=== PATIENT | female | born 1940 | race Caucasian/White ===

== ENCOUNTER 2017-10-21 12:57 | Inpatient (IN) | payer MEDICARE, SELFPAY | END 2017-10-27 11:05 | disposition home or self-care (01) | DRG 981 | PROVIDERS: Admitting Provider Internal Medicine Adolescent Medicine; Emergency Provider Emergency Medicine; Family Provider Family Medicine; Visit Provider Family Medicine | DX: J96.01 Acute respiratory failure with hypoxia (principal); K31.811 Angiodysplasia of stomach and duodenum with bleeding; N18.4 Chronic kidney disease, stage 4 (severe); N17.9 Acute kidney failure, unspecified; E11.22 Type 2 diabetes mellitus with diabetic chronic kidney disease; E11.65 Type 2 diabetes mellitus with hyperglycemia; I13.0 Hypertensive heart and chronic kidney disease with heart failure and stage 1 through stage 4 chronic kidney disease, or unspecified chronic kidney disease; J44.1 Chronic obstructive pulmonary disease with (acute) exacerbation; J44.0 Chronic obstructive pulmonary disease with (acute) lower respiratory infection; I50.9 Heart failure, unspecified; I35.0 Nonrheumatic aortic (valve) stenosis; Z95.828 Presence of other vascular implants and grafts; Z95.5 Presence of coronary angioplasty implant and graft; Z79.4 Long term (current) use of insulin; J20.9 Acute bronchitis, unspecified | CPT/HCPCS: 43257; 43239; 43255; 36415; 36430; 70450; 71010; 80048; 80053; 80185; 81001; 82150; 82272; 82550; 82553; 82668; 82803; 82947; 82962; 83605; 83690; 83880; 84484; 85014; 85018; 85025; 85044; 86850; 86900; 86901; 86920; 86922; 87040; 87070; 87077; 87086; 87186; 87205; 88305; 93005; 93306; 94640; 94660; 94760; 96374; 96375; 97162; 97165; 99285; C2618; G0328; J2310; P9016 ==

== ENCOUNTER 2017-12-04 06:24 | Day surgery (SDC) | payer MEDICARE, MEDICAID, SELFPAY ==
[2017-12-01 10:20] VITALS: BMI 26.2
[2017-12-04] VITALS (8 sets, daily range): BP systolic 117–138; BP diastolic 44–76; PULSE 72–78; RESP 18; TEMP 36.7; O2SAT 92–98
--- NOTE | 2017-12-04 07:10 | HMH.ANESCL ---
[facility] Anesthesia Checklist - Patient Identification Patient Identification: Arm Band, Verbal (Name & ) - Structural Data Admitted From: Home Planned Operative Procedure/s: colonoscopy Consent for Planned Operative Procedure(s) Verified: Yes Verified Documents: Surgical Consent - NPO Status Verified Time NPO: 00:00 - Chart Verification Results Verified: CBC, BMP - Additional verifications Patient : No Anesthesia Reactions: No Hx Blood Transfusions: No Blood Transfusion Reaction: No Cephalosporin Allergy: No Previous Colonoscopy: No - Cardiovascular Assessment Heart Sounds: S1 & S2 Pulse Strength: Strong Pulse Rhythm: Regular Peripheral Edema: No - Airway Assessment C-Spine Mobility Assessed: Yes TMJ Mobility Assessed: Yes Dentition: Edentulous - Neurological Assessment Level of Consciousness: Awake, Alert, Appropriate Hx Seizures: Yes Numbness or tingling in extremities: No - Anesthesia Plan Anesthesia Risk discussed: Yes Anesthesia Plan: Verified ASA Class: III Anesthesia Type: MAC [facility] Anesthesia HX I have reviewed the patient's past medical history: Yes Medical History: Reports:: Atherosclerotic Heart Disease, Carotid Stenosis, Chronic Obstructive Pulmonary Disease (COPD), Coronary Artery Disease, Diabetes Mellitus Type 1, Gastroesophageal Reflux Disease(GERD), Hypertension, Lung Disease (COPD, O2 AT5 HOME HAS NOT USED IN WEEKS), Peripheral Vascular Disease, Renal Insufficiency Denies:: Diabetes Mellitus Type 2, Internal Pacemaker, Seizures Other Surgeries: Yes: Colonoscopy, Hysterectomy-Partial. No: Pacemaker Amputation: No Fractures: No *Family Hx:: Unable to obtain
--- NOTE | 2017-12-04 07:13 | P.PN_ITS ---
[facility] Anesthesia Checklist - Patient Identification Patient Identification: Arm Band, Verbal (Name & ) - Structural Data Admitted From: Home Planned Operative Procedure/s: colonoscopy Consent for Planned Operative Procedure(s) Verified: Yes Verified Documents: Surgical Consent - NPO Status Verified Time NPO: 00:00 - Chart Verification Results Verified: CBC, BMP - Additional verifications Patient : No Anesthesia Reactions: No Hx Blood Transfusions: No Blood Transfusion Reaction: No Cephalosporin Allergy: No Previous Colonoscopy: No - Cardiovascular Assessment Heart Sounds: S1 & S2 Pulse Strength: Strong Pulse Rhythm: Regular Peripheral Edema: No - Airway Assessment C-Spine Mobility Assessed: Yes TMJ Mobility Assessed: Yes Dentition: Edentulous - Neurological Assessment Level of Consciousness: Awake, Alert, Appropriate Hx Seizures: Yes Numbness or tingling in extremities: No - Anesthesia Plan Anesthesia Risk discussed: Yes Anesthesia Plan: Verified ASA Class: III Anesthesia Type: MAC [facility] Anesthesia HX I have reviewed the patient's past medical history: Yes Medical History: Reports:: Atherosclerotic Heart Disease, Carotid Stenosis, Chronic Obstructive Pulmonary Disease (COPD), Coronary Artery Disease, Diabetes Mellitus Type 1, Gastroesophageal Reflux Disease(GERD), Hypertension, Lung Disease (COPD, O2 AT5 HOME HAS NOT USED IN WEEKS), Peripheral Vascular Disease, Renal Insufficiency Denies:: Diabetes Mellitus Type 2, Internal Pacemaker, Seizures Other Surgeries: Yes: Colonoscopy, Hysterectomy-Partial. No: Pacemaker Amputation: No Fractures: No *Family Hx:: Unable to obtain
[2017-12-04 07:54] LABS: POC Glucose,Bedside 151 mg/dL
[2017-12-04 08:10] LABS: Basophils # 0.2 K/mm3 (0-0.2); Basophils % 1.9 % (0.1-2.0); Eosinophils # 0.7 K/mm3 (0.0-0.4); Hematocrit 37.8 % (37.0-47.0); Hemoglobin 12.1 g/dL (12.2-16.2); Lymphocytes # 1.6 K/mm3 (0.7-4.5); Lymphocytes % 19.2 K/mm3 (10-50); Mean Corpuscular HGB Conc 31.9 g/dL (31.8-35.4); Mean Corpuscular Hemoglobin 30.4 pg (27.0-31.2); Mean Corpuscular Volume 95.1 fl (81-99); Mean Platelet Volume 8.3 fl (7.4-10.4); Monocytes # 0.5 K/mm3 (0.1-1.0); Monocytes % 6.4 % (1.7-9.3); Neutrophils # 5.5 K/mm3 (1.8-7.8); Neutrophils % 64.5 % (37.0-80.0); Platelet Count 289 K/mm3 (142-424); Red Blood Count 3.97 M/mm3 (4.20-5.40); Red Cell Distribution Width 14.9 % (11.5-17.5); White Blood Count 8.5 K/mm3 (4.8-10.8)
[2017-12-04 08:25] LABS: Albumin Level 3.6 gm/dL (3.4-5.0); Anion Gap 15.8 mEq/L (5-15); Blood Urea Nitrogen 34 mg/dL (7-18); Calcium 9.6 mg/dL (8.5-10.1); Carbon Dioxide 28 mmol/L (21.0-32.0); Chloride 109 mmol/L (98-107); Creatinine Clearance Estimated 19 mL/min (0-300); Creatinine,Serum 2.45 mg/dL (0.55-1.02); Estimated Glomerular Filt Rate 19 ml/min (>60); GFR (African American) 23 ML/MIN (>60); Glucose 168 mg/dL (74-106); Phosphorous 4.9 mg/dL (2.4-4.9); Potassium 4.8 mmoL/L (3.5-5.1); Sodium 148 mmol/L (136-145)
--- NOTE | 2017-12-04 08:34 | HMH.PROC ---
[facility] Procedure Note Procedure Note:: Colonoscopy Procedure Report: Colonoscopy with cold snare polypectomy, submucosal injection and snare cautery Endoscopist: Neal Dunham II, MD Referring physician: Austin Zendejas MD Date of Procedure: December 04, 2017 Equipment: Olympus 180 variable stiffness pediatric colonoscope Sedation: MAC sedation Indication: Mrs. Iniguez is a 77-year-old female who is here for follow-up high-risk screening colonoscopy secondary to advanced adenomatous polyp with high-grade dysplasia previously. The patient came in with anemia on October 21, 2017. She did have an EGD with ne on October 26, 2017. Her hemoglobin and hematocrit were 9.6 and 29.7. She does have chronic renal insufficiency. Her EGD showed actively bleeding duodenal angiodysplasia which was cauterized using the APC argon plasma balance wheel arm burnisher. The patient did have a colonoscopy in July 2016 and had a large and more advanced right colon polyp that showed a tubular adenoma with focal high-grade dysplasia (Dr. Ricky Lorenzo M.D.). The patient reports no abdominal pain, change in her bowel habits, rectal bleeding or family history of colon cancer. Procedure: Prior to the procedure, a history and physical exam was performed, and patient's medications and allergies were reviewed. The risks, benefits and alternatives of the sedation and procedure were discussed with the patient. All questions were answered and informed consent was obtained. The patient was brought to the procedure room. Patient identification and proposed procedure were verified by the physician and the nurse. The patient was placed in a left lateral decubitus position and the scope was passed under direct vision. Throughout the procedure, the patient's blood pressure, pulse, and oxygen saturations were monitored continuously. The colonoscopy was accomplished without difficulty. The patient tolerated the procedure well. Findings: On digital rectal examination there was normal rectal tone. There were no external hemorrhoids. The colonoscope was introduced through the anal canal to the rectum and advanced to the cecum. The ileocecal valve and appendiceal orifice were identified. The scope was advanced a short distance into the ileum which appeared grossly normal. The scope was then withdrawn into the colon. There were 2 diminutive ascending polyps and 2 diminutive descending polyps that were removed via cold snare polypectomy and were 4-6 mm in size. There was a larger elongated laterally spreading nongranular 22 mm polyp in the rectosigmoid region. The base of this was injected with Eleview with submucosal injection to lift this polyp up. The polyp was then removed via snare cautery in piecemeal resection. There were scattered diverticuli throughout the descending and sigmoid colon (LEFT colon). The rectum itself was normal. Upon retroflexion within the rectum there were grade 1 internal hemorrhoids. Impression: 1. Laterally spreading nongranular 22 mm rectosigmoid colon polyp-rule out advanced adenoma 2. Diminutive colonic polyps ?4 3. Pandiverticulosis 4. Grade 1 internal hemorrhoids Plan: I will follow-up the polyp histology. If this larger polyp is an advanced adenoma, I would consider repeat surveillance again in 1-2 years based on the pathologic findings.
--- NOTE | 2017-12-04 08:34 | SUR.PREOP ---
1398 pt offered assistance to restroom, denies need at this time
--- NOTE | 2017-12-04 09:19 | P.PCN_ITS ---
[facility] Procedure Note Procedure Note:: Colonoscopy Procedure Report: Colonoscopy with cold snare polypectomy, submucosal injection and snare cautery Endoscopist: Neal Dunham II, MD Referring physician: Austin Zendejas MD Date of Procedure: December 04, 2017 Equipment: Olympus 180 variable stiffness pediatric colonoscope Sedation: MAC sedation Indication: Mrs. Iniguez is a 77-year-old female who is here for follow-up high-risk screening colonoscopy secondary to advanced adenomatous polyp with high-grade dysplasia previously. The patient came in with anemia on October. She did have an EGD with in on October 26, 2017. Her hemoglobin and hematocrit were 9.6 and 29.7. She does have chronic renal insufficiency. Her EGD showed actively bleeding duodenal angiodysplasia which was cauterized using the APC argon plasma supervisor [employer]. The patient did have a colonoscopy in July 2016 and had a large and more advanced right colon polyp that showed a tubular adenoma with focal high-grade dysplasia (Dr. Ricky Lorenzo M.D.). The patient reports no abdominal pain, change in her bowel habits, rectal bleeding or family history of colon cancer. Procedure: Prior to the procedure, a history and physical exam was performed, and patient' s medications and allergies were reviewed. The risks, benefits and alternatives of the sedation and procedure were discussed with the patient. All questions were answered and informed consent was obtained. The patient was brought to the procedure room. Patient identification and proposed procedure were verified by the physician and the nurse. The patient was placed in a left lateral decubitus position and the scope was passed under direct vision. Throughout the procedure, the patient's blood pressure, pulse, and oxygen saturations were monitored continuously. The colonoscopy was accomplished without difficulty. The patient tolerated the procedure well. Findings: On digital rectal examination there was normal rectal tone. There were no external hemorrhoids. The colonoscope was introduced through the anal canal to the rectum and advanced to the cecum. The ileocecal valve and appendiceal orifice were identified. The scope was advanced a short distance into the ileum which appeared grossly normal. The scope was then withdrawn into the colon. There were 2 diminutive ascending polyps and 2 diminutive descending polyps that were removed via cold snare polypectomy and were 4-6 mm in size. There was a larger elongated laterally spreading nongranular 22 mm polyp in the rectosigmoid region. The base of this was injected with Eleview with submucosal injection to lift this polyp up. The polyp was then removed via snare cautery in piecemeal resection. There were scattered diverticuli throughout the descending and sigmoid colon (LEFT colon). The rectum itself was normal. Upon retroflexion within the rectum there were grade 1 internal hemorrhoids. Impression: 1. Laterally spreading nongranular 22 mm rectosigmoid colon polyp-rule out advanced adenoma 2. Diminutive colonic polyps ?4 3. Pandiverticulosis 4. Grade 1 internal hemorrhoids Plan: I will follow-up the polyp histology. If this larger polyp is an advanced adenoma, I would consider repeat surveillance again in 1-2 years based on the pathologic findings.
== END 2017-12-04 10:10 | disposition home or self-care (01) ==
PROVIDERS: Internal Medicine Nephrology; Family Provider Family Medicine; PCP Family Medicine; Visit Provider Internal Medicine Gastroenterology
PROC: 0DJD8ZZ Inspection of Lower Intestinal Tract, Via Natural or Artificial Opening Endoscopic (ICD-10-PCS; CPT 45378; principal; 2017-12-04 07:30)
DX: Z12.11 Encounter for screening for malignant neoplasm of colon (principal); Z87.19 Personal history of other diseases of the digestive system; K63.5 Polyp of colon; K57.30 Diverticulosis of large intestine without perforation or abscess without bleeding; E11.9 Type 2 diabetes mellitus without complications; Z79.4 Long term (current) use of insulin; D12.7 Benign neoplasm of rectosigmoid junction
CPT/HCPCS: 45380; 45381; 36415; 80069; 82962; 85025; 88305

== ENCOUNTER → 2017-12-07 14:27 | Outpatient (POV) | payer MEDICARE, MEDICAID, SELFPAY | PROVIDERS: Family Provider Family Medicine; PCP Family Medicine; Visit Provider Internal Medicine Nephrology | DX: Z00.00 Encounter for general adult medical examination without abnormal findings (principal) ==

== ENCOUNTER 2018-01-10 16:04 | Inpatient (IN) | payer MEDICARE, MEDICAID, SELFPAY ==
[2018-01-10] VITALS (11 sets, daily range): BP systolic 130–172; BP diastolic 59–95; PULSE 79–101; RESP 18–30; TEMP 36.6–38.4; O2SAT 80–100; BMI 25.9; BMI 26.2
--- NOTE | 2018-01-10 17:17 | XR_ITS ---
XR chest 2V HISTORY: Shortness of air, ITS.REASON: SOA ORDERING PHYSICIAN: Zoya Blanchard MD PATIENT AGE: 77 years COMPARISON: 10/23/2017 FINDINGS: The heart size is within normal limits. Pulmonary vessels are however slightly prominent with some minimal interstitial edema and small bilateral effusions consistent with CHF. In addition, there is increased density in the right upper lobe and in the right lower lobe consistent with pneumonia or edema. Surgical clips are present in the left neck. No acute bony anomalies. IMPRESSION: CHF with small bilateral effusions and patchy infiltrate or edema in the right mid and right lower lung zone
--- NOTE | 2018-01-10 17:41 | HMH.EDSOB ---
ED Disposition Clinical Impression: Chronic renal failure, Congestive heart failure, Elevated troponin, Chronic renal disease Disposition: Still a Patient Condition on Discharge: Fair Referrals: Austin Zendejas MD [Primary Care Provider] - - Critical Care Critical Care Time: No Attestation: On 01/10/18, the high probability of a clinically significant, sudden or life threatening deterioration of the following system(s) required my full and direct attention, intervention and personal management. The time I documented below is in addition to time spent performing reported procedures but includes the following listed in this critical care notation. Medical Decision Making Vital Signs: 01/10/18 16:50 Temperature 98.0 F Temperature Source Oral Pulse Rate [Right Brachial] 80 Respiratory Rate 22 Blood Pressure [Right Arm] 130/59 Blood Pressure Mean [Right Arm] 82 Blood Pressure Source [Right Arm] Automatic Cuff Blood Pressure Position [Right Arm] Sitting 02 Sat by Pulse Oximetry 87 L Oxygen Delivery Method Room Air - Lab Data Lab Results 01/10/18 17:55: WBC 12.3 H, RBC 3.63 L, Hgb 11.2 L, Hct 34.1 L, MCV 94.0, MCH 30.8, MCHC 32.7, RDW 13.7, Plt Count 247, MPV 8.9, Neut % (Auto) 73.9, Lymph % (Auto) 14.5, [place] % (Auto) 6.7, Eos % (Auto) 4.1, Baso % (Auto) 0.7, Neut # (Auto) 9.1 H, Lymph # (Auto) 1.8, [place] # (Auto) 0.8, Eos # (Auto) 0.5 H, Baso # (Auto) 0.1 01/10/18 17:55: Sodium 139, Potassium 3.7, Chloride 100, Carbon Dioxide 27, Anion Gap 15.7 H, BUN 53 H, Creatinine 3.35 H, Estimated Creat Clear 14, Estimated GFR 13 L*, Est GFR ( Amer) 16 L*, Glucose 143 H, Calcium 8.8, Total Bilirubin 1.3 H, AST 17, ALT 24, Alkaline Phosphatase 112, Total Creatine Kinase 57, CK-MB (CK-2) 0.6, CK-MB (CK-2) Rel Index 1.1, Troponin I 0.41 H, Total Protein 7.7, Albumin 3.1 L, Globulin 4.6 H, Albumin/Globulin Ratio 0.7 L 01/10/18 17:55: B-Natriuretic Peptide 650 H 01/10/18 17:55: Magnesium 1.6 Result diagrams: 01/10/18 17:55 01/10/18 17:55 Orders (Tests/Meds): ED MEDICATIONS Discontinued Medications Generic Name Dose Route Start Last Admin Trade Name John PRN Reason Stop Dose Admin Furosemide 20 mg 01/10/18 17:45 01/10/18 17:56 Lasix 20mg/2ml Vial IV 01/10/18 17:46 20 mg ONCE ONE Administration - Radiology Data #1 Image Reviewed: Yes I reviewed the patient's radiology image Preliminary Findings: Abnormal X-ray: Cardiomegaly, pulmonary vascular congestion, minimal l patchy infiltrate. Cannot exclude pneumonia clinical correlation advised. - Jalil Inquiry Pt receiving controlled substance: No Jalil was queried for this patient: No Medical Decision Making Narrative: The patient's oxygenation improved after Lasix and oxygen supplement. The spoke with Dr. Zendejas about her positive troponin. Dr. Zendejas advised to admit her obtain serial enzymes. Repeat labs in the am. Resp/SOB HPI - General Chief Complaint: Shortness of Breath/Dyspnea Stated Complaint: shortness of air and legs swelling Mode of Arrival: Ambulatory Limitations: No Limitations Description of Symptoms (Recalled from ER Triage Doc. by RN): Pt reports SOA x2 day, productive cough, BLE swelling. Reports got dizzy legs gave out and fell yesterday, denies injury or pain. - History of Present Illness 77 years old white female with a history of valve disease, chronic renal failure and congestive heart failure. The patient brought by the family due to 2 day history of progressive shortness of breath and leg edema. Patient complaining of shortness of breath denies chest pain. MD Complaint: shortness of breath Onset (ago): day(s) (2 days) Severity: mild Consistency/Duration: constant Relieving factors: rest Exacerbating factors: exertion Known history of: congestive heart failure Associated symptoms: denies other symptoms Treatment prior to arrival: other (lasix ) - Related Data Home Medications Medication In
--- NOTE | 2018-01-10 17:44 | ED_ITS ---
ED Disposition Clinical Impression: Chronic renal failure, Congestive heart failure, Elevated troponin, Chronic renal disease Disposition: Still a Patient Condition on Discharge: Fair Referrals: Austin Zendejas MD [Primary Care Provider] - - Critical Care Critical Care Time: No Attestation: On 01/10/18, the high probability of a clinically significant, sudden or life threatening deterioration of the following system(s) required my full and direct attention, intervention and personal management. The time I documented below is in addition to time spent performing reported procedures but includes the following listed in this critical care notation. Medical Decision Making Vital Signs: 01/10/18 16:50 Temperature 98.0 F Temperature Source Oral Pulse Rate [Right Brachial] 80 Respiratory Rate 22 Blood Pressure [Right Arm] 130/59 Blood Pressure Mean [Right Arm] 82 Blood Pressure Source [Right Arm] Automatic Cuff Blood Pressure Position [Right Arm] Sitting 02 Sat by Pulse Oximetry 87 L Oxygen Delivery Method Room Air - Lab Data Lab Results 01/10/18 17:55: WBC 12.3 H, RBC 3.63 L, Hgb 11.2 L, Hct 34.1 L, MCV 94.0, MCH 30.8, MCHC 32.7, RDW 13.7, Plt Count 247, MPV 8.9, Neut % (Auto) 73.9, Lymph % ( Auto) 14.5, [place] % (Auto) 6.7, Eos % (Auto) 4.1, Baso % (Auto) 0.7, Neut # (Auto ) 9.1 H, Lymph # (Auto) 1.8, [place] # (Auto) 0.8, Eos # (Auto) 0.5 H, Baso # (Auto ) 0.1 01/10/18 17:55: Sodium 139, Potassium 3.7, Chloride 100, Carbon Dioxide 27, Anion Gap 15.7 H, BUN 53 H, Creatinine 3.35 H, Estimated Creat Clear 14, Estimated GFR 13 L*, Est GFR ( Amer) 16 L*, Glucose 143 H, Calcium 8.8, Total Bilirubin 1.3 H, AST 17, ALT 24, Alkaline Phosphatase 112, Total Creatine Kinase 57, CK-MB (CK-2) 0.6, CK-MB (CK-2) Rel Index 1.1, Troponin I 0.41 H, Total Protein 7.7, Albumin 3.1 L, Globulin 4.6 H, Albumin/Globulin Ratio 0.7 L 01/10/18 17:55: B-Natriuretic Peptide 650 H 01/10/18 17:55: Magnesium 1.6 Result diagrams: 01/10/18 17:55 01/10/18 17:55 Orders (Tests/Meds): ED MEDICATIONS Discontinued Medications Generic Name Dose Route Start Last Admin Trade Name John PRN Reason Stop Dose Admin Furosemide 20 mg 01/10/18 17:45 01/10/18 17:56 Lasix 20mg/2ml Vial IV 01/10/18 17:46 20 mg ONCE ONE Administration - Radiology Data #1 Image Reviewed: Yes I reviewed the patient's radiology image Preliminary Findings: Abnormal X-ray: Cardiomegaly, pulmonary vascular congestion, minimal l patchy infiltrate. Cannot exclude pneumonia clinical correlation advised. - Jalil Inquiry Pt receiving controlled substance: No Jalil was queried for this patient: No Medical Decision Making Narrative: The patient's oxygenation improved after Lasix and oxygen supplement. The spoke with Dr. Zendejas about her positive troponin. Dr. Zendejas advised to admit her obtain serial enzymes. Repeat labs in the am. Resp/SOB HPI - General Chief Complaint: Shortness of Breath/Dyspnea Stated Complaint: shortness of air and legs swelling Mode of Arrival: Ambulatory Limitations: No Limitations Description of Symptoms (Recalled from ER Triage Doc. by RN): Pt reports SOA x2 day, productive cough, BLE swelling. Reports got dizzy legs gave out and fell yesterday, denies injury or pain. - History of Present Illness 77 years old white female with a history of valve disease, ch
[2018-01-10 18:10] LABS: Basophils # 0.1 K/mm3 (0-0.2); Basophils % 0.7 % (0.1-2.0); Eosinophils # 0.5 K/mm3 (0.0-0.4); Eosinophils % 4.1 % (0.1-12.0); Hematocrit 34.1 % (37.0-47.0); Hemoglobin 11.2 g/dL (12.2-16.2); Lymphocytes # 1.8 K/mm3 (0.7-4.5); Lymphocytes % 14.5 K/mm3 (10-50); Mean Corpuscular HGB Conc 32.7 g/dL (31.8-35.4); Mean Corpuscular Hemoglobin 30.8 pg (27.0-31.2); Mean Platelet Volume 8.9 fl (7.4-10.4); Monocytes # 0.8 K/mm3 (0.1-1.0); Monocytes % 6.7 % (1.7-9.3); Neutrophils # 9.1 K/mm3 (1.8-7.8); Neutrophils % 73.9 % (37.0-80.0); Platelet Count 247 K/mm3 (142-424); Red Blood Count 3.63 M/mm3 (4.20-5.40); Red Cell Distribution Width 13.7 % (11.5-17.5); White Blood Count 12.3 K/mm3 (4.8-10.8)
[2018-01-10 18:23] LABS: Magnesium 1.6 mg/dL (1.4-2.2)
[2018-01-10 18:30] LABS: Alanine Aminotransferase 24 U/L (12-78); Albumin Level 3.1 gm/dL (3.4-5.0); Albumin/Globulin Ratio 0.7 (1.1-1.8); Alkaline Phosphatase 112 U/L (46-116); Anion Gap 15.7 mEq/L (5-15); Aspartate Amino Transferase 17 U/L (15-37); Bilirubin,Total 1.3 mg/dL (0.2-1.0); Blood Urea Nitrogen 53 mg/dL (7-18); CKMB Relative Index 1.1 U/L (0-4.0); Calcium 8.8 mg/dL (8.5-10.1); Carbon Dioxide 27 mmol/L (21.0-32.0); Chloride 100 mmol/L (98-107); Creatine Kinase 57 U/L (26-192); Creatine Kinase MB 0.6 mg/ml (0.0-3.6); Creatinine Clearance Estimated 14 mL/min (0-300); Creatinine,Serum 3.35 mg/dL (0.55-1.02); Estimated Glomerular Filt Rate 13 ml/min (>60); GFR (African American) 16 ML/MIN (>60); Globulin 4.6 gm/dl (1.3-3.2); Glucose 143 mg/dL (74-106); Potassium 3.7 mmoL/L (3.5-5.1); Sodium 139 mmol/L (136-145); Total Protein,Serum 7.7 gm/dL (6.4-8.2); Troponin I 0.41 ng/ml (0.00-0.06)
--- NOTE | 2018-01-10 18:54 | PC.NURSE ---
pt urinated 300ml at this time.
--- NOTE | 2018-01-10 19:15 | PC.NURSE ---
SHIFT CHANGE REPORT GIVEN TO PRESLEY DAVILA AT THIS TIME.
--- NOTE | 2018-01-10 21:00 | PC.NURSE ---
PT UP TO RESTROOM WITH MINIMAL ASSISTANCE, PT VOIDED 400CC URINE AT THIS TIME. BACK TO STRETCHER. PT TOLERATED TRANSFER WELL.
[2018-01-10 22:13] LABS: ABG Base Excess 1.3 mmol/L (-2.4-2.3); ABG HCO3 26.7 mmhg (22.0-26.0); ABG Oxygen Saturation 86 % (90-100); ABG PCO2 47.9 mmhg (35.0-45.0); ABG PH 7.36 mmol/L (7.35-7.45); ABG PO2 55.2 mmhg (80-100); ABG TCO2 28.2 mmhg (23-27)
[2018-01-10 22:14] LABS: Allen's Test Y; Oxygen 5 %; Source R/R
--- NOTE | 2018-01-10 22:30 | PC.PHONENOTE ---
PT SAO2 ALARM ALARMING, 86%. PT ON [id number]. PT ASSESSED AND FINDINGS ARE, RR IS INCREASED AND SHALLOW, LUNG SOUNDS ARE WHEEZING TO AUSCULATATION. SAO2 CONTINUES TO FALL TO 80-81% WHILE IN ROOM. O2 INCREASED TO [id number]. SAO2 MAINTAINS AT 86%. SPOKE WITH DR. HANNON CONCERNING PATIENT CARE AND RECEIVED NEW ORDERS. WILL MONITOR FOR IMPROVEMENT.
--- NOTE | 2018-01-10 22:58 | PC.NURSE ---
pt with chills and hot to touch. temp 101.2. dr. devries notified. new orders received. leena, receiving rn notified of patient and patient changed. pt admitted to floor at this time.
[2018-01-10 23:09] LABS: Microscopic,Cath URINE MICROSCOPIC (MICROSCOPIC)
[2018-01-10 23:19] LABS: Appearance,Urine/Cath CLEAR (Clear); Bilirubin,Cath Negative (Negative); Blood, Urine/Cath 1+ (Negative); Color,Urine/Cath YELLOW (Yellow); Glucose,Urine/Cath (UA) Negative (Negative); Ketones,Urine/Cath Negative (Negative); Leukocyte Esterase,Cath Negative (Negative); Nitrate,Cath Negative (Negative); Protein,Urine/Cath 2+ (Negative); Urobilinogen,Cath 0.2 EU/dl (0.2)
[2018-01-10 23:25] LABS: Amorphous Sediment,Ur/Cath 4+ /lpf
[2018-01-10 23:30] LABS: Lactic Acid 0.8 mmol/L (0.4-2.0)
[2018-01-10 23:47] LABS: Adenovirus,PCR Not Detected (NotDetected); Bordetella Pertussis Not Detected (NotDetected); Chlamydophila Pneumoniae, PCR Not Detected (NotDetected); Coronavirus 229E Not Detected (NotDetected); Coronavirus NL63 Not Detected (NotDetected); Coronavirus OC43 Not Detected (NotDetected); Coronovirus HKU1,PCR Not Detected (NotDetected); Human Metapneumovirus Not Detected (NotDetected); Influenza A, PCR Not Detected (NotDetected); Influenza AH1, 2009 Not Detected (NotDetected); Influenza AH1, PCR Not Detected (NotDetected); Influenza AH3,PCR Not Detected (NotDetected); Influenza B, PCR Not Detected (NotDetected); Mycoplasma Pneumoniae, PCR Not Detected (NotDected); Parainfluenza 1, PCR Not Detected (NotDetected); Parainfluenza 2, PCR Not Detected (NotDetected); Parainfluenza 3, PCR Not Detected (NotDetected); Parainfluenza 4, PCR Not Detected (NotDetected); Respiratory Syncytial Virus Not Detected (NotDetected); Rhinovirus/Enterovirus Not Detected (NotDetected)
[2018-01-11] VITALS (19 sets, daily range): BP systolic 140–157; BP diastolic 47–59; PULSE 60–90; RESP 16–22; TEMP 36.3–37.5; O2SAT 91–97; BMI 26.5
[2018-01-11 00:10] LABS: Troponin I 0.28 ng/ml (0.00-0.06)
--- NOTE | 2018-01-11 04:50 | PC.NURSE ---
Pt family notified this nurse that something is wrong with the pt. Family stated that she would not wake up after the family was talking to her. This nurse went in to assess pt. Pt immediately woke up when called name, pt was A&Ox3 at this time, v/s taken were WNL. FSBS 262. Will continue to monitor.
[2018-01-11 04:55] LABS: POC Glucose,Bedside 262 mg/dL (70-110)
--- NOTE | 2018-01-11 05:47 | PC.NURSE ---
Since admission pt has been tolerating BIPAP well, pt states she feel better since coming into the ER and that she can breathe better. 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 O2 sats remaining in high 90s on BIPAP. BLE and BUE edema noted, non-pitting. A&Ox3. VSS. Crackles noted during lung auscultation. No acute distress noted. Will continue to monitor.
[2018-01-11 06:46] LABS: Basophils % 0.1 % (0.1-2.0); Eosinophils # 0.1 K/mm3 (0.0-0.4); Eosinophils % 0.5 % (0.1-12.0); Hematocrit 35.2 % (37.0-47.0); Hemoglobin 11.4 g/dL (12.2-16.2); Lymphocytes # 0.7 K/mm3 (0.7-4.5); Lymphocytes % 5.8 K/mm3 (10-50); Mean Corpuscular HGB Conc 32.3 g/dL (31.8-35.4); Mean Corpuscular Hemoglobin 30.7 pg (27.0-31.2); Mean Corpuscular Volume 95.2 fl (81-99); Mean Platelet Volume 9.3 fl (7.4-10.4); Monocytes # 0.3 K/mm3 (0.1-1.0); Monocytes % 1.9 % (1.7-9.3); Neutrophils # 11.6 K/mm3 (1.8-7.8); Neutrophils % 91.7 % (37.0-80.0); Platelet Count 266 K/mm3 (142-424); Red Cell Distribution Width 13.6 % (11.5-17.5); White Blood Count 12.7 K/mm3 (4.8-10.8)
[2018-01-11 06:48] LABS: MANUAL DIFFERENTIAL MANUAL DIFFERENTIAL (MANUAL DIFF)
--- NOTE | 2018-01-11 07:00 | XR_ITS ---
XR chest portable HISTORY: Follow-up congestive heart failure and shortness of air ITS.REASON: chf ORDERING PHYSICIAN: Austin Zendejas MD PATIENT AGE: 77 years COMPARISON: 01/10/2018 FINDINGS: Pulmonary venous congestion has improved. There remain small bilateral effusions. The right upper lobe infiltrate has shown improvement. There remains increased density in the right lower lobe consistent with atelectasis or infiltrate probably unchanged given the difference in technique. IMPRESSION: Improvement in CHF. Improved right upper lobe infiltrate with persistent right lower lobe atelectasis or infiltrate with small bilateral effusions
[2018-01-11 07:06] LABS: Anion Gap 15.7 mEq/L (5-15); Blood Urea Nitrogen 57 mg/dL (7-18); Carbon Dioxide 28 mmol/L (21.0-32.0); Chloride 100 mmol/L (98-107); Creatinine Clearance Estimated 14 mL/min (0-300); Creatinine,Serum 3.42 mg/dL (0.55-1.02); Estimated Glomerular Filt Rate 13 ml/min (>60); GFR (African American) 16 ML/MIN (>60); Glucose 283 mg/dL (74-106); Magnesium 1.7 mg/dL (1.4-2.2); Potassium 3.7 mmoL/L (3.5-5.1); Sodium 140 mmol/L (136-145); Troponin I 0.28 ng/ml (0.00-0.06)
--- NOTE | 2018-01-11 07:17 | HMH.HP ---
*Admission Date: 01/10/18 *Chief complaint: Swelling *History of present illness: 77-year-old female with known coronary artery disease, COPD, diabetes, very severe chronic kidney disease with impending need for dialysis presented to the emergency department with family after a fall at home and apparent confusion. History is taken from daughters who states the patient fell at home on Thursday. When the family went to check on her she did not look right . She seemed confused and had some difficulty interacting with family members. This is how patient is acted on previous occasions when she has either been hypoxic or hypercapnic. She was also noted to have swelling of the hands and face. She has a history of volume overload requiring hospitalization and family brought her to the emergency department. In the ER it was initially felt as if she presented with some mild fluid overload and was given 20 mg of IV Lasix with plan to admit. As the evening progressed patient developed fevers to 101.9. Chest x-ray had been interpreted as having possible pneumonia so patient was empirically started on Rocephin and azithromycin to cover that possibility. Patient also became more hypoxic while in the emergency department and was started on BiPAP after being given Solu-Medrol and a DuoNeb. This morning the patient is awake and alert. She reports improvement in breathing. Family is at bedside and also reports the patient looks better and is more interactive. [facility] History Medical History: Reports:: Aneurysm (abdominal), Atherosclerotic Heart Disease, Carotid Stenosis, Chronic Obstructive Pulmonary Disease (COPD), Congenital Heart Disease, Coronary Artery Disease, Diabetes Mellitus Type 2, Gastroesophageal Reflux Disease(GERD), Heart Murmur, Hyperlipidemia, Hypertension, Lung Disease (COPD, O2 AT5 HOME HAS NOT USED IN WEEKS), MRSA, Peripheral Vascular Disease, Renal Insufficiency Denies:: Cancer, Diabetes Mellitus Type 1, Internal Pacemaker, Seizures Other Medical History: Reports: Cataracts. Denies: Blood Transfusion Reaction Other Surgeries: Yes: Colonoscopy, Coronary Stent, Hysterectomy-Partial. No: Pacemaker Amputation: No Fractures: No - *Social History Educational Level: Attended High School Smoking Status: Former smoker Alcohol Intake: never Occupational Status: disabled Housing: house - Psychiatric History Expresses thoughts of harming self/others: None Suicide Plan Description: No Plan *Family Hx:: Hypertension, Kidney Disease, Stroke Review of Systems - Review of Systems Review of systems:: pertinent systems reviewed and negative unless documented below Meds Home Medications Medication Instructions Recorded Confirmed Type Albuterol Sulfate [Proair Hfa 2 puffs IH Q4-6H 12/01/17 01/11/18 History 90mcg/puff Inh] Amlodipine Besylate [Amlodipine 10 mg PO DAILY 12/01/17 01/11/18 History 10mg Tab] Atorvastatin Calcium [Atorvastatin 40 mg PO DAILY 12/01/17 01/11/18 History 40mg Tab] Carvedilol [Carvedilol 25mg Tab] 25 mg PO DAILY 12/01/17 01/11/18 History Ergocalciferol (Vitamin D2) 400 unit PO DAILY 12/01/17 01/11/18 History [Vitamin D] Furosemide [Lasix 20mg tab] 20 mg PO DAILY 12/01/17 01/11/18 History Gabapentin [Gabapentin 300mg Cap] 300 mg PO DAILY 12/01/17 01/11/18 History Insulin Glargine,Hum.rec.anlog 45 unit PO DAILY 12/01/17 01/11/18 History [Lantus Insulin 100units/mL 10mL vial] Isosorbide Mononitrate [Imdur 60mg 60 mg PO DAILY 12/01/17 01/11/18 History ER tablet] Linagliptin [Tradjenta] 5 mg PO DAILY 12/01/17 01/11/18 History Omeprazole [Omeprazole 40mg 40 mg PO DAILY 12/01/17 01/11/18 History Capsule] Aspirin [Adult Low Dose Aspirin EC] 81 mg PO DAILY 01/11/18 01/11/18 History Ferrous Sulfate 325 mg PO DAILY 01/11/18 01/11/18 History Hydrocodone/Acetaminophen 1 each PO NEEDED PRN 01/11/18 01/11/18 History [Hydrocodone-Acetamin 5-325 mg] Trazodone HCl 50 mg PO NEEDED PRN 01/11/18
--- NOTE | 2018-01-11 07:19 | CA_ITS ---
PROCEDURE: 2-D M-mode and color Doppler study INDICATIONS FOR THE TEST: Chest pain COPDX Heart Murmur Tobacco SmokingEX Palpitations Fatigue Syncope Edema HypertensionXDiabetes MellitusX Rheumatic Fever SOBXDOEXObesityXHyperlipidemiaX Family History HD Additional History CAD MAC, PATIENT INFORMATION HEIGHT: 62 WEIGHT:144 GENDER: Female B/P:110/70 2-D/M-MODE INTERPRETATION: 2-D MEASUREMENTS OBSERVED VALUES IN CMS Right Ventricular Dimension (RVDd) 2.4 Interventricular Septum (Thickness)(IVsd) 1.3 Left Ventricular Internal Dimensions(LVIDd) 5.5 Left Ventricular Posterior Wall (Thickness)(LVPWd) 1.1 Aortic Root 2.5 Aortic Cusp Separation 1.0 Left Atrial Dimensions (LAD) 3.7 2D 1. Left atrium is mildly enlarged, left ventricle is normal size, there is mild concentric left ventricular hypertrophy present, visually estimated ejection fraction 55% with no obvious wall motion abnormality. 2. The right atrium and right ventricle are mildly enlarged with normal contractility. 3. The aortic valve is thickened and calcified with the restriction the leaflet mobility. 4. The mitral valve has dense mitral annular calcification, which extends and both anterior and posterior mitral leaflet. 5. The pulmonic valve is poorly visualized. 6. The tricuspid valve leaflets are minimally thickened. 7. No significant pericardial effusion noted. DOPPLER INTERROGATION: 1. The maximum aortic out flow velocity recorded study 3.3 m/s, resulting in a mean gradient across valve of 28 mmHg, this represents at least moderate aortic stenosis. There is mild aortic insufficiency present, the valve area is not accurately calculated. 2. The mitral inflow velocity is increased to 2 m/s, the mean gradient in the valve area is not calculated. 3. There is mild tricuspid regurgitation noted, tricuspid and jet velocity insufficient for calculation of the right ventricular systolic pressure CONCLUSION: 1. Mildly enlarged left atrium, normal left ventricular size, mild concentric left ventricular hypertrophy, visually estimated ejection fraction 55% with no obvious regional wall motion abnormality. 2. Thickened and calcified aortic valve, mean gradient across valve is 28 mmHg consistent with moderate aortic stenosis, there is mild aortic insufficiency present. 3. There is mitral annular calcification, which extends and both anterior and posterior mitral leaflet, there is increased velocity across the mitral valve suggestive of mitral stenosis, the mean gradient in the valve area is not calculated. 4. No significant pericardial eff
--- NOTE | 2018-01-11 07:21 | P.HP_ITS ---
*Admission Date: 01/10/18 *Chief complaint: Swelling *History of present illness: 77-year-old female with known coronary artery disease, COPD, diabetes, very severe chronic kidney disease with impending need for dialysis presented to the emergency department with family after a fall at home and apparent confusion. History is taken from daughters who states the patient fell at home on Thursday. When the family went to check on her she did not look right . She seemed confused and had some difficulty interacting with family members. This is how patient is acted on previous occasions when she has either been hypoxic or hypercapnic. She was also noted to have swelling of the hands and face. She has a history of volume overload requiring hospitalization and family brought her to the emergency department. In the ER it was initially felt as if she presented with some mild fluid overload and was given 20 mg of IV Lasix with plan to admit. As the evening progressed patient developed fevers to 101.9. Chest x-ray had been interpreted as having possible pneumonia so patient was empirically started on Rocephin and azithromycin to cover that possibility. Patient also became more hypoxic while in the emergency department and was started on BiPAP after being given Solu-Medrol and a DuoNeb. This morning the patient is awake and alert. She reports improvement in breathing. Family is at bedside and also reports the patient looks better and is more interactive. [facility] History Medical History: Reports:: Aneurysm (abdominal), Atherosclerotic Heart Disease, Carotid Stenosis, Chronic Obstructive Pulmonary Disease (COPD), Congenital Heart Disease, Coronary Artery Disease, Diabetes Mellitus Type 2, Gastroesophageal Reflux Disease(GERD), Heart Murmur, Hyperlipidemia, Hypertension, Lung Disease (COPD, O2 AT5 HOME HAS NOT USED IN WEEKS), MRSA, Peripheral Vascular Disease, Renal Insufficiency Denies:: Cancer, Diabetes Mellitus Type 1, Internal Pacemaker, Seizures Other Medical History: Reports: Cataracts. Denies: Blood Transfusion Reaction Other Surgeries: Yes: Colonoscopy, Coronary Stent, Hysterectomy-Partial. No: Pacemaker Amputation: No Fractures: No - *Social History Educational Level: Attended High School Smoking Status: Former smoker Alcohol Intake: never Occupational Status: disabled Housing: house - Psychiatric History Expresses thoughts of harming self/others: None Suicide Plan Description: No Plan *Family Hx:: Hypertension, Kidney Disease, Stroke Review of Systems - Review of Systems Review of systems:: pertinent systems reviewed and negative unless documented below Meds Home Medications Medication Instructions Recorded Confirmed Type Albuterol Sulfate [Proair Hfa 2 puffs IH Q4-6H 12/01/17 01/11/18 History 90mcg/puff Inh] Amlodipine Besylate [Amlodipine 10 mg PO DAILY 12/01/17 01/11/18 History 10mg Tab] Atorvastatin Calcium [Atorvastatin 40 mg PO DAILY 12/01/17 01/11/18 History 40mg Tab] Carvedilol [Carvedilol 25mg Tab] 25 mg PO DAILY 12/01/17 01/11/18 History Ergocalciferol (Vitamin D2) 400 unit PO DAILY 12/01/17 01/11/18 History [Vitamin D] Furosemide [Lasix 20mg tab] 20 mg PO DAILY 12/01/17 01/11/18 History Gabapentin [Gabapentin 300mg Cap] 300 mg PO DAILY 12/01/17 01/11/18 History Insulin Glargine,Hum.rec.anlog 45 unit PO DAILY 12/01/17 01/11/18 History [Lantus Insulin 100units/mL 10mL vial] Isosorbide Mononitrate [Imdur 60mg 60 mg PO DAILY 12/01/17 01/11/18 History ER tablet] Linagliptin [Tradjenta] 5 mg PO D
--- NOTE | 2018-01-11 07:30 | PC.NURSE ---
REPORT GIVEN TO Denis LUCAS W/C
--- NOTE | 2018-01-11 07:39 | PC.NURSE ---
report given to tony ag rn
--- NOTE | 2018-01-11 07:44 | HMH.PHAVTE ---
[facility] Pharmacy VTE Monitoring - Patient Demographics Admission date: 01/10/18 Report Date: 01/11/18 Time: 07:44 Allergies/Adverse Reactions: Patient Allergies No Known Allergies Allergy (Verified 12/01/17 10:10) Height: 1.57 m Weight: 65.402 kg Patient Problems: Current Active Problems Chronic renal failure (Acute) Congestive heart failure (Acute) Elevated troponin (Acute) Chronic renal disease (Acute) Chronic kidney disease, stage IV (severe) (Chronic) COPD with respiratory failure, acute (Acute) - VTE Risk Labs: VTE Related Lab Results Hgb 11.4 g/dL (12.2-16.2) L 01/11/18 06:05 Hct 35.2 % (37.0-47.0) L 01/11/18 06:05 Plt Count 266 K/mm3 (142-424) 01/11/18 06:05 BUN 57 mg/dL (7-18) H 01/11/18 06:05 Creatinine 3.42 mg/dL (0.55-1.02) H 01/11/18 06:05 Estimated Creat Clear 14 mL/min (0-300) 01/11/18 06:05 VTE Risk Level: Moderate Risk - Prophylaxis VTE Prophylaxis Ordered?: Yes Types of VTE Prophylaxis: TEDS Knee High Location of Applied Device: Bilateral Lower Extremeties - VTE Diagnosis Confirmed Treatment or plan recommended: Continue Current Treatment
[2018-01-11 08:48] LABS: Lymphocytes % 7 % (10-50); Monocytes % 1 % (2-9); Neutrophils % 92 % (42-76); Total Cells Counted 100
[2018-01-11 08:49] LABS: Burr Cells 2+
[2018-01-11 08:53] LABS: Schistocytes 1+
[2018-01-11 08:54] LABS: Acanthocytes 1+; Platelet Estimate Normal
[2018-01-11 09:20] LABS: POC Glucose,Bedside 389 mg/dL (70-110)
[2018-01-11 11:37] LABS: POC Glucose,Bedside 354 mg/dL (70-110)
[2018-01-11 16:36] LABS: POC Glucose,Bedside 454 mg/dL (70-110)
--- NOTE | 2018-01-11 18:27 | PC.NURSE ---
PT LUNGS HAVE CRACKLES THROUGHOUT. HEART AND BOWEL SOUNDS NORMAL. PT IS ALERT AND ORIENTED. HAS BEEN ON 3LNC THROUGHOUT SHIFT AND O2 SAT STAYING ABOVE 90%. [facility] IS BEING D/C WILL REPORT THIS TO ONCOMING NURSE TO MONITOR FOR OUTPUT AFTER REMOVAL. PT HAS STATED NO COMPLAINTS THIS SHIFT. FAMILY AT BEDSIDE. CALL LIGHT IN REACH. WILL CONTINUE TO MONITOR PT CONDITION.
--- NOTE | 2018-01-11 19:23 | PC.NURSE ---
REPORT GIVEN TO LAVELLE Ramirez RN
[2018-01-11 20:45] LABS: POC Glucose,Bedside 422 mg/dL (70-110)
[2018-01-12] VITALS (11 sets, daily range): BP systolic 129–159; BP diastolic 40–62; PULSE 70–83; RESP 18–20; TEMP 36.4–37; O2SAT 93–99
--- NOTE | 2018-01-12 03:32 | PC.NURSE ---
Pt has rested well this shift and states she feels a lot better than when she was admitted, she denies pain SOA. NSR with occasional PAC noted. Crackles and wheezing noted during lung auscultation. BS active in all 4 qauds. Murmur noted during ausucltation of heart, pt states she does have a murmur. Tolerating 2L NC. VSS. No acute distress noted. Will continue to monitor.
--- NOTE | 2018-01-12 06:08 | PC.NURSE ---
Pt stated she has gotten up twice to urinate post f/c removal.
[2018-01-12 06:12] LABS: POC Glucose,Bedside 212 mg/dL (70-110)
[2018-01-12 06:49] LABS: Eosinophils % 0.2 % (0.1-12.0); Hematocrit 31.9 % (37.0-47.0); Hemoglobin 10.3 g/dL (12.2-16.2); Lymphocytes # 0.8 K/mm3 (0.7-4.5); Lymphocytes % 5.3 K/mm3 (10-50); Mean Corpuscular HGB Conc 32.1 g/dL (31.8-35.4); Mean Corpuscular Hemoglobin 30.5 pg (27.0-31.2); Mean Corpuscular Volume 94.9 fl (81-99); Mean Platelet Volume 9.5 fl (7.4-10.4); Monocytes # 0.8 K/mm3 (0.1-1.0); Monocytes % 5.3 % (1.7-9.3); Neutrophils # 14.1 K/mm3 (1.8-7.8); Neutrophils % 89.1 % (37.0-80.0); Platelet Count 312 K/mm3 (142-424); Red Blood Count 3.36 M/mm3 (4.20-5.40); Red Cell Distribution Width 13.5 % (11.5-17.5); White Blood Count 15.8 K/mm3 (4.8-10.8)
[2018-01-12 06:51] LABS: Anion Gap 10.9 mEq/L (5-15); Carbon Dioxide 27 mmol/L (21.0-32.0); Chloride 102 mmol/L (98-107); Creatinine Clearance Estimated 15 mL/min (0-300); Creatinine,Serum 3.22 mg/dL (0.55-1.02); Estimated Glomerular Filt Rate 14 ml/min (>60); GFR (African American) 17 ML/MIN (>60); Glucose 214 mg/dL (74-106); Potassium 3.9 mmoL/L (3.5-5.1); Sodium 136 mmol/L (136-145)
[2018-01-12 06:52] LABS: MANUAL DIFFERENTIAL MANUAL DIFFERENTIAL (MANUAL DIFF)
--- NOTE | 2018-01-12 06:59 | PC.NURSE ---
REPORT GIVEN TO CHANTAL
[2018-01-12 07:11] LABS: Blood Urea Nitrogen 78 mg/dL (7-18)
--- NOTE | 2018-01-12 07:21 | P.PN_ITS ---
Internal Medicine - PN: Subj *Date: 01/12/18 *Time: 07:19 Interval history: Patient has no complaints this morning. She has been weaned to nasal cannula. She was able to ambulate some within her room yesterday. At present she denies shortness of breath. Exam Vital signs and Labs for Last 24 Hours: Temp Pulse Resp BP Pulse Ox 98.1 F 75 18 129/52 98 01/12/18 04:06 01/12/18 04:06 01/12/18 04:06 01/12/18 04:06 01/12/18 04:06 Laboratory Results - last 24 hr 01/11/18 06:05: Total Counted 100, Neutrophils % (Manual) 92 H, Lymphocytes % ( Manual) 7 L, Monocytes % (Manual) 1 L, Platelet Estimate Normal, [place] Cells 2+, Acanthocytes (Spur) 1+, Schistocytes 1+ 01/11/18 09:12: POC Glucose 389 01/11/18 11:15: POC Glucose 354 01/11/18 16:17: POC Glucose 454 01/11/18 20:15: POC Glucose 422 01/12/18 06:01: POC Glucose 212 01/12/18 06:15: WBC 15.8 H, RBC 3.36 L, Hgb 10.3 L, Hct 31.9 L, MCV 94.9, MCH 30.5, MCHC 32.1, RDW 13.5, Plt Count 312, MPV 9.5, Neut % (Auto) 89.1 H, Lymph % (Auto) 5.3 L, [place] % (Auto) 5.3, Eos % (Auto) 0.2, Baso % (Auto) 0.0 L, Neut # (Auto) 14.1 H, Lymph # (Auto) 0.8, [place] # (Auto) 0.8, Eos # (Auto) 0.0, Baso # (Auto) 0.0 01/12/18 06:15: Sodium 136, Potassium 3.9, Chloride 102, Carbon Dioxide 27, Anion Gap 10.9, BUN 78 H D, Creatinine 3.22 H, Estimated Creat Clear 15, Estimated GFR 14 L*, Est GFR ( Amer) 17 L*, Glucose 214 H I & O for Last 24 hours: Intake & Output 01/09/18 01/10/18 01/11/1806/18 11:59 11:59 11:59 11:59 Intake Total 540 / 540 780 / 780 Output Total 500 / 500 900 / 900 Balance 40 / 40 -120 / -120 Weight 144 lb 3 oz 143 lb 1 oz Microbiology Reports for the Last 24 Hours: Microbiology 01/11/18 20:45 Sputum - Expectorated Sputum Gram Stain - Final 01/11/18 20:45 Sputum - Expectorated Sputum Sputum Culture - Preliminary Narrative: She looks well. ENT exam reveals a moist oropharynx. Lungs are diminished with some scattered rhonchi. Heart has a regular rate and rhythm with loud systolic murmur. Extremities are without edema Assessment and Plan (1) Community acquired pneumonia Current visit: Yes Status: Suspected Category: Medical Code(s): J18.9 - Pneumonia, unspecified organism (2) Chronic kidney disease, stage IV (severe) Current visit: Yes Status: Chronic Category: Medical Code(s): N18.4 - Chronic kidney disease, stage 4 (severe) (3) COPD with respiratory failure, acute Current visit: Yes Status: Acute Category: Medical Code(s): J96.00 - Acute respiratory failure, unspecified whether with hypoxia or hypercapnia; J44.9 - Chronic obstructive pulmonary disease, unspecified (4) Congestive heart failure Current visit: Yes Status: Acute Category: Medical Code(s): I50.9 - Heart failure, unspecified (5) Elevated troponin Current visit: Yes Status: Acute Category: Medical Code(s): R74.8 - Abnormal levels of other serum enzymes (6) Moderate aortic stenosis Current visit: Yes Status: Acute Category: Medical Code(s): I35.0 - Nonrheumatic aortic (valve) stenosis - Assessment and plan all Dx Assessment and Plan for all problems:: Restart patient's oral Lasix today. Encourage ambulation. Repeat labs in a.m. Increase basal insulin
--- NOTE | 2018-01-12 07:52 | PC.NURSE ---
0710 - Report received from Kami Juarez RN
[2018-01-12 09:28] LABS: Lymphocytes % 5 % (10-50); Monocytes % 4 % (2-9); Neutrophils % 89 % (42-76); Total Cells Counted 100
[2018-01-12 09:29] LABS: Platelet Estimate Normal; Schistocytes 1+
[2018-01-12 09:31] LABS: Acanthocytes 1+; Burr Cells 2+
[2018-01-12 11:26] LABS: POC Glucose,Bedside 357 mg/dL (70-110)
[2018-01-12 16:48] LABS: POC Glucose,Bedside 279 mg/dL (70-110)
--- NOTE | 2018-01-12 18:19 | PC.NURSE ---
Pt has been A&Ox3 this shift in NAD. VSS. Afebrile. Lungs /c crackles scattered throughout. Heart rate reg. (R)FA saline lock patent /s s/s of infection/infiltration. No c/o verbalized this shift. Bed in low position, call ag within reach. Will continue to monitor.
--- NOTE | 2018-01-12 19:22 | PC.NURSE ---
Report given to Kami Juarez RN
[2018-01-13] VITALS (16 sets, daily range): BP systolic 127–164; BP diastolic 48–67; PULSE 64–97; RESP 16–20; TEMP 36.6–37; O2SAT 89–96
[2018-01-13 01:09] LABS: POC Glucose,Bedside 289 mg/dL (70-110)
--- NOTE | 2018-01-13 03:48 | PC.NURSE ---
Addendum entered by Bernarda Juarez RN 01/13/18 04:19: Murmur noted during heart auscultation, pt baseline. NRS on groundwater monitoring technician. Original Note: No complaints this shift. Unable to wean off O2 at this time, sats drop to 87 on RA, 2L remain in place. Crackles noted during lung auscultation. BS active in all 4 qauds, LBM 01/12/18. A&Ox3. VSS. No acute distress noted. Will continue to monitor.
[2018-01-13 06:46] LABS: POC Glucose,Bedside 155 mg/dL (70-110)
[2018-01-13 06:48] LABS: Basophils # 0.1 K/mm3 (0-0.2); Basophils % 0.5 % (0.1-2.0); Eosinophils # 0.4 K/mm3 (0.0-0.4); Eosinophils % 4.2 % (0.1-12.0); Hematocrit 32.8 % (37.0-47.0); Hemoglobin 10.5 g/dL (12.2-16.2); Lymphocytes # 1.4 K/mm3 (0.7-4.5); Lymphocytes % 14.8 K/mm3 (10-50); Mean Corpuscular Hemoglobin 30.4 pg (27.0-31.2); Monocytes # 0.8 K/mm3 (0.1-1.0); Monocytes % 8.6 % (1.7-9.3); Platelet Count 314 K/mm3 (142-424); Red Blood Count 3.45 M/mm3 (4.20-5.40); Red Cell Distribution Width 13.7 % (11.5-17.5); White Blood Count 9.7 K/mm3 (4.8-10.8)
[2018-01-13 07:01] LABS: Carbon Dioxide 31 mmol/L (21.0-32.0); Chloride 105 mmol/L (98-107); Creatinine Clearance Estimated 16 mL/min (0-300); Creatinine,Serum 2.85 mg/dL (0.55-1.02); Estimated Glomerular Filt Rate 16 ml/min (>60); GFR (African American) 19 ML/MIN (>60); Glucose 160 mg/dL (74-106); Sodium 142 mmol/L (136-145)
[2018-01-13 07:09] LABS: Blood Urea Nitrogen 76 mg/dL (7-18)
--- NOTE | 2018-01-13 07:27 | HMH.ACPN2 ---
Internal Medicine - PN: Subj *Date: 01/13/18 *Time: 07:27 Interval history: Patient reports episodes of breaking out in a sweat in the evenings that have required her to change her gown, this happened twice last night. She will have associated chills but there has been no documented fever. Patient overall feels like dyspnea has improved. She is ambulating during the day. Room air sat is recorded at a level of 87%. Exam Vital signs and Labs for Last 24 Hours: Temp Pulse Resp BP Pulse Ox 98.2 F 76 16 157/57 92 L 01/13/18 04:00 01/13/18 06:20 01/13/18 04:00 01/13/18 04:00 01/13/18 06:20 Laboratory Results - last 24 hr 01/12/18 06:15: Total Counted 100, Neutrophils % (Manual) 89 H, Band Neutrophils % 2.0, Lymphocytes % (Manual) 5 L, Monocytes % (Manual) 4, Platelet Estimate Normal, [place] Cells 2+, Acanthocytes (Spur) 1+, Schistocytes 1+ 01/12/18 11:02: POC Glucose 357 01/12/18 16:07: POC Glucose 279 01/12/18 20:46: POC Glucose 289 01/13/18 06:25: POC Glucose 155 01/13/18 06:30: WBC 9.7 D, RBC 3.45 L, Hgb 10.5 L, Hct 32.8 L, MCV 95.0, MCH 30.4, MCHC 32.0, RDW 13.7, Plt Count 314, MPV 9.0, Neut % (Auto) 72.0, Lymph % (Auto) 14.8, [place] % (Auto) 8.6, Eos % (Auto) 4.2, Baso % (Auto) 0.5, Neut # (Auto) 7.0, Lymph # (Auto) 1.4, [place] # (Auto) 0.8, Eos # (Auto) 0.4, Baso # (Auto) 0.1 01/13/18 06:30: Sodium 142, Potassium 4.0, Chloride 105, Carbon Dioxide 31, Anion Gap 10.0, BUN 76 H, Creatinine 2.85 H, Estimated Creat Clear 16, Estimated GFR 16 L*, Est GFR ( Amer) 19 L*, Glucose 160 H I & O for Last 24 hours: Intake & Output 01/10/18 01/11/18 01/12/18 01/13/18 11:59 11:59 11:59 11:59 Intake Total 540 / 540 1020 / 1020 530 / 530 Output Total 500 / 500 900 / 900 Balance 40 / 40 120 / 120 530 / 530 Weight 144 lb 3 oz 143 lb 1 oz 139 lb 8.313 oz Microbiology Reports for the Last 24 Hours: Microbiology 01/11/18 20:45 Sputum - Expectorated Sputum Gram Stain - Final 01/11/18 20:45 Sputum - Expectorated Sputum Sputum Culture - Preliminary Narrative: She is awake and alert. Nasal cannula is in place. Heart has a regular rate and rhythm with loud systolic murmur. Lungs have basilar crackles. Abdomen is soft. Extremities are without edema Assessment and Plan (1) Community acquired pneumonia Current visit: Yes Status: Suspected Category: Medical Code(s): J18.9 - Pneumonia, unspecified organism (2) Chronic kidney disease, stage IV (severe) Current visit: Yes Status: Chronic Category: Medical Code(s): N18.4 - Chronic kidney disease, stage 4 (severe) (3) COPD with respiratory failure, acute Current visit: Yes Status: Acute Category: Medical Code(s): J96.00 - Acute respiratory failure, unspecified whether with hypoxia or hypercapnia; J44.9 - Chronic obstructive pulmonary disease, unspecified (4) Congestive heart failure Current visit: Yes Status: Acute Category: Medical Code(s): I50.9 - Heart failure, unspecified (5) Elevated troponin Current visit: Yes Status: Acute Category: Medical Code(s): R74.8 - Abnormal levels of other serum enzymes (6) Moderate aortic stenosis Current visit: Yes Status: Acute Category: Medical Code(s): I35.0 - Nonrheumatic aortic (valve) stenosis - Assessment and plan all Dx Assessment and Plan for all problems:: 1. Patient will be given IV Lasix today for diuresis 2. Monitor for fevers and await cultures
--- NOTE | 2018-01-13 07:34 | PC.NURSE ---
report given to tony ag rn
--- NOTE | 2018-01-13 07:53 | HMH.ACPN ---
Internal Medicine - PN: Subj *Date: 01/13/18 *Time: 07:53 Exam Vital signs and Labs for Last 24 Hours: Temp Pulse Resp BP Pulse Ox 98.2 F 76 16 157/57 92 L 01/13/18 04:00 01/13/18 06:20 01/13/18 04:00 01/13/18 04:00 01/13/18 06:20 Laboratory Results - last 24 hr 01/12/18 06:15: Total Counted 100, Neutrophils % (Manual) 89 H, Band Neutrophils % 2.0, Lymphocytes % (Manual) 5 L, Monocytes % (Manual) 4, Platelet Estimate Normal, [place] Cells 2+, Acanthocytes (Spur) 1+, Schistocytes 1+ 01/12/18 11:02: POC Glucose 357 01/12/18 16:07: POC Glucose 279 01/12/18 20:46: POC Glucose 289 01/13/18 06:25: POC Glucose 155 01/13/18 06:30: WBC 9.7 D, RBC 3.45 L, Hgb 10.5 L, Hct 32.8 L, MCV 95.0, MCH 30.4, MCHC 32.0, RDW 13.7, Plt Count 314, MPV 9.0, Neut % (Auto) 72.0, Lymph % (Auto) 14.8, [place] % (Auto) 8.6, Eos % (Auto) 4.2, Baso % (Auto) 0.5, Neut # (Auto) 7.0, Lymph # (Auto) 1.4, [place] # (Auto) 0.8, Eos # (Auto) 0.4, Baso # (Auto) 0.1 01/13/18 06:30: Sodium 142, Potassium 4.0, Chloride 105, Carbon Dioxide 31, Anion Gap 10.0, BUN 76 H, Creatinine 2.85 H, Estimated Creat Clear 16, Estimated GFR 16 L*, Est GFR ( Amer) 19 L*, Glucose 160 H I & O for Last 24 hours: Intake & Output 01/10/18 01/11/18 01/12/18 01/13/18 23:59 23:59 23:59 23:59 Intake Total 1020 / 1020 1020 / 1020 50 / 50 Output Total 1400 / 1400 Balance -380 / -380 1020 / 1020 50 / 50 Weight 64.949 kg 64.892 kg 63.285 kg Microbiology Reports for the Last 24 Hours: Microbiology 01/11/18 20:45 Sputum - Expectorated Sputum Gram Stain - Final 01/11/18 20:45 Sputum - Expectorated Sputum Sputum Culture - Preliminary Assessment and Plan (1) Community acquired pneumonia Current visit: Yes Status: Suspected Category: Medical Code(s): J18.9 - Pneumonia, unspecified organism (2) Chronic kidney disease, stage IV (severe) Current visit: Yes Status: Chronic Category: Medical Code(s): N18.4 - Chronic kidney disease, stage 4 (severe) (3) COPD with respiratory failure, acute Current visit: Yes Status: Acute Category: Medical Code(s): J96.00 - Acute respiratory failure, unspecified whether with hypoxia or hypercapnia; J44.9 - Chronic obstructive pulmonary disease, unspecified (4) Congestive heart failure Current visit: Yes Status: Acute Category: Medical Code(s): I50.9 - Heart failure, unspecified (5) Elevated troponin Current visit: Yes Status: Acute Category: Medical Code(s): R74.8 - Abnormal levels of other serum enzymes (6) Moderate aortic stenosis Current visit: Yes Status: Acute Category: Medical Code(s): I35.0 - Nonrheumatic aortic (valve) stenosis The patient's infection will respond to the chosen ABx?: Yes Is the patient receiving the right drug, dose, and route?: Yes Could a more targeted ABx be ordered?: No (EMPIRIC THERAPY FOR G+ COCCI)
[2018-01-13 08:56] LABS: POC Glucose,Bedside 204 mg/dL (70-110)
[2018-01-13 11:30] LABS: POC Glucose,Bedside 187 mg/dL (70-110)
--- NOTE | 2018-01-13 13:38 | DIET.NUTRFU ---
Po intakes 50-100% on diabetic, cardiac diet. POC glucose 187,204,155,289. CHF exacerbation. Daily wts and wt is down from 143 lbs to 139 lbs. Further instruction provided on CHF diet, not cooking with salt at home. Pt voices understanding.
[2018-01-13 16:35] LABS: POC Glucose,Bedside 182 mg/dL (70-110)
--- NOTE | 2018-01-13 18:30 | PC.NURSE ---
pt has been up to chair this shift. ambulating in [address] with family. crackles scattered in lungs. heart and bowel sounds normal. pt has stated no complaints. room air obtained and was 89%. call light in reach. will continue to monitor pt condition.
--- NOTE | 2018-01-13 19:20 | PC.NURSE ---
PT FULL CODE. REPORT RECEIVED FROM ALVA
--- NOTE | 2018-01-13 19:31 | PC.NURSE ---
report given to soheila choudhury rn
[2018-01-13 21:31] LABS: POC Glucose,Bedside 225 mg/dL (70-110)
[2018-01-14] VITALS: PULSE 80
[2018-01-14 04:00] VITALS: BP 146/69; PULSE 78; PULSE 80; RESP 17; TEMP 36.9; O2SAT 95
--- NOTE | 2018-01-14 05:56 | PC.NURSE ---
PT SLEPT MOST OF SHIFT. FAMILY MEMBER AT BEDSIDE. RESPIRATIONS EVEN AND UNLABORED. BREATH SOUNDS EQUAL AND CLEAR THROUGHOUT. REMAINS ON 2L/NC. IV SECURE, SALINE LOCKED, FLUSHES WELL. CONTINUES ON ABX. NO C/O PAIN OR DISCOMFORT REPORTED. NSR ON MONITOR. NO CHEST PAIN OR SOA REPORTED. PT STABLE. WILL CONTINUE TO MONITOR. REPORT TO BE GIVEN TO ONCOMING NURSE.
[2018-01-14 06:37] VITALS: PULSE 74; PULSE 75; O2SAT 92
[2018-01-14 06:37] LABS: Basophils % 0.5 % (0.1-2.0); Eosinophils % 11.6 % (0.1-12.0); Hematocrit 35.5 % (37.0-47.0); Hemoglobin 11.5 g/dL (12.2-16.2); Lymphocytes # 1.4 K/mm3 (0.7-4.5); Lymphocytes % 16.3 K/mm3 (10-50); Mean Corpuscular HGB Conc 32.4 g/dL (31.8-35.4); Mean Corpuscular Hemoglobin 30.6 pg (27.0-31.2); Mean Corpuscular Volume 94.5 fl (81-99); Mean Platelet Volume 8.7 fl (7.4-10.4); Monocytes # 0.7 K/mm3 (0.1-1.0); Monocytes % 8.7 % (1.7-9.3); Neutrophils # 5.2 K/mm3 (1.8-7.8); Neutrophils % 62.9 % (37.0-80.0); Platelet Count 343 K/mm3 (142-424); Red Blood Count 3.75 M/mm3 (4.20-5.40); Red Cell Distribution Width 13.7 % (11.5-17.5); White Blood Count 8.3 K/mm3 (4.8-10.8)
[2018-01-14 06:41] LABS: POC Glucose,Bedside 92 mg/dL (70-110)
[2018-01-14 06:47] LABS: Chloride 105 mmol/L (98-107)
--- NOTE | 2018-01-14 07:02 | [facility].DCSUM ---
General - General Admission date: 01/10/18 Discharge date: 01/14/18 HPI HPI: 77-year-old female with known coronary artery disease, COPD, diabetes, very severe chronic kidney disease with impending need for dialysis presented to the emergency department with family after a fall at home and apparent confusion. History is taken from daughters who states the patient fell at home on Thursday. When the family went to check on her she did not look right . She seemed confused and had some difficulty interacting with family members. This is how patient is acted on previous occasions when she has either been hypoxic or hypercapnic. She was also noted to have swelling of the hands and face. She has a history of volume overload requiring hospitalization and family brought her to the emergency department. In the ER it was initially felt as if she presented with some mild fluid overload and was given 20 mg of IV Lasix with plan to admit. As the evening progressed patient developed fevers to 101.9. Chest x-ray had been interpreted as having possible pneumonia so patient was empirically started on Rocephin and azithromycin to cover that possibility. Patient also became more hypoxic while in the emergency department and was started on BiPAP after being given Solu-Medrol and a DuoNeb. This morning the patient is awake and alert. She reports improvement in breathing. Family is at bedside and also reports the patient looks better and is more interactive. Hospital Course Hospital Course: Patient was admitted and decision was made to give her intravenous Lasix to diurese her. Patient had excellent response to Lasix but while waiting transfer of care from the emergency department to the medical surgical floor patient developed a fever greater than 101. Sepsis workup was added on and patient was started on Rocephin and azithromycin. Patient also became more hypoxic and a blood gas revealed a PO2 in the 50s. Patient was started on BiPAP on the initial night of admission. By the following morning after diuresis and BiPAP patient was awake, alert, oriented with improvement in dyspnea. BiPAP was weaned to nasal cannula on the fifth. Careful monitoring of I's and O's as well as renal function took place in the hospitalization. Creatinine did improve. On the sixth patient was given her oral dose of Lasix but this was felt to not be enough and on the seventh she was given additional IV Lasix which improved diuresis. By the eighth evidence of hypervolemia had resolved. Patient had elevated troponin on admission an echocardiogram was repeated. Echocardiogram showed no change in EF. Elevated troponin was considered to be due to demand ischemia from her hypoxia on admission. Chest x-ray was initially interpreted as findings of CHF with suspicion of infiltrate. Patient remained on antibiotics the remainder of hospitalization. Follow-up chest x-ray performed one day after admission showed improvement in CHF findings as well as infiltrates. Patient will be discharged home to continue a course of antibiotics. On the eighth patient had returned to baseline and was discharged home. She has home oxygen. She will be prescribed Omnicef to finish her course of antibiotics. Follow-up in the office in 5 days Objective Vital signs: Temp Pulse Resp BP Pulse Ox 98.5 F 75 17 146/69 92 L 01/14/18 04:00 01/14/18 06:37 01/14/18 04:00 01/14/18 04:00 01/14/18 06:37 Results Labs on day of discharge: Labs from last 24 hours 01/14/18 01/14/18 01/13/18 06:31 06:05 21:14 WBC 8.3 RBC 3.75 L Hgb 11.5 L Hct 35.5 L MCV 94.5 MCH 30.6 MCHC 32.4 RDW 13.7 Plt Count 343 MPV 8.7 Neut % (Auto) 62.9 Lymph % (Auto) 16.3 [place] % (Auto) 8.7 Eos % (Auto) 11.6 Baso % (Auto) 0.5 Neut # (Auto) 5.2 Lymph # (Auto) 1.4 [place] # (Auto) 0.7 Eos # (Auto) 1.0 H Baso # (Auto) 0.0 Sodium Potassium
--- NOTE | 2018-01-14 07:05 | P.DS_ITS ---
General - General Admission date: 01/10/18 Discharge date: 01/14/18 HPI HPI: 77-year-old female with known coronary artery disease, COPD, diabetes, very severe chronic kidney disease with impending need for dialysis presented to the emergency department with family after a fall at home and apparent confusion. History is taken from daughters who states the patient fell at home on Thursday. When the family went to check on her she did not look right . She seemed confused and had some difficulty interacting with family members. This is how patient is acted on previous occasions when she has either been hypoxic or hypercapnic. She was also noted to have swelling of the hands and face. She has a history of volume overload requiring hospitalization and family brought her to the emergency department. In the ER it was initially felt as if she presented with some mild fluid overload and was given 20 mg of IV Lasix with plan to admit. As the evening progressed patient developed fevers to 101.9. Chest x-ray had been interpreted as having possible pneumonia so patient was empirically started on Rocephin and azithromycin to cover that possibility. Patient also became more hypoxic while in the emergency department and was started on BiPAP after being given Solu-Medrol and a DuoNeb. This morning the patient is awake and alert. She reports improvement in breathing. Family is at bedside and also reports the patient looks better and is more interactive. Hospital Course Hospital Course: Patient was admitted and decision was made to give her intravenous Lasix to diurese her. Patient had excellent response to Lasix but while waiting transfer of care from the emergency department to the medical surgical floor patient developed a fever greater than 101. Sepsis workup was added on and patient was started on Rocephin and azithromycin. Patient also became more hypoxic and a blood gas revealed a PO2 in the 50s. Patient was started on BiPAP on the initial night of admission. By the following morning after diuresis and BiPAP patient was awake, alert, oriented with improvement in dyspnea. BiPAP was weaned to nasal cannula on the fifth. Careful monitoring of I's and O's as well as renal function took place in the hospitalization. Creatinine did improve. On the sixth patient was given her oral dose of Lasix but this was felt to not be enough and on the seventh she was given additional IV Lasix which improved diuresis. By the eighth evidence of hypervolemia had resolved. Patient had elevated troponin on admission an echocardiogram was repeated. Echocardiogram showed no change in EF. Elevated troponin was considered to be due to demand ischemia from her hypoxia on admission. Chest x- ray was initially interpreted as findings of CHF with suspicion of infiltrate. Patient remained on antibiotics the remainder of hospitalization. Follow-up chest x-ray performed one day after admission showed improvement in CHF findings as well as infiltrates. Patient will be discharged home to continue a course of antibiotics. On the eighth patient had returned to baseline and was discharged home. She has home oxygen. She will be prescribed Omnicef to finish her course of antibiotics. Follow-up in the office in 5 days Objective Vital signs: Temp Pulse Resp BP Pulse Ox 98.5 F 75 17 146/69 92 L 01/14/18 04:00 01/14/18 06:37 01/14/18 04:00 01/14/18 04:00 01/14/18 06:37 Results Labs on day of discharge: Labs from last 24 hours 01/14/18 01/14/18 01/13/18 06:31 06:05 21:14 WBC 8.3 RBC 3.75 L Hgb 11
[2018-01-14 07:12] LABS: Anion Gap 8.9 mEq/L (5-15); Blood Urea Nitrogen 70 mg/dL (7-18); Carbon Dioxide 31 mmol/L (21.0-32.0); Creatinine Clearance Estimated 18 mL/min (0-300); Creatinine,Serum 2.58 mg/dL (0.55-1.02); Estimated Glomerular Filt Rate 18 ml/min (>60); GFR (African American) 22 ML/MIN (>60); Glucose 100 mg/dL (74-106); Potassium 3.9 mmoL/L (3.5-5.1); Sodium 141 mmol/L (136-145)
[2018-01-14 08:00] VITALS: BP 139/80; PULSE 74; RESP 16; TEMP 36.7; O2SAT 96
== END 2018-01-14 08:57 | disposition home or self-care (01) | DRG 190 ==
LOC: ER 19:24 → 2ND 21:47
PROVIDERS: Emergency Medicine; Admitting Provider Family Medicine; Emergency Provider Emergency Medicine; Family Provider Family Medicine; PCP Family Medicine; Visit Provider Family Medicine
DX: J96.00 Acute respiratory failure, unspecified whether with hypoxia or hypercapnia (principal); J18.9 Pneumonia, unspecified organism; I13.0 Hypertensive heart and chronic kidney disease with heart failure and stage 1 through stage 4 chronic kidney disease, or unspecified chronic kidney disease; N18.4 Chronic kidney disease, stage 4 (severe); I50.9 Heart failure, unspecified; E11.22 Type 2 diabetes mellitus with diabetic chronic kidney disease; Z99.81 Dependence on supplemental oxygen; I35.0 Nonrheumatic aortic (valve) stenosis; J44.9 Chronic obstructive pulmonary disease, unspecified; J44.0 Chronic obstructive pulmonary disease with (acute) lower respiratory infection; Z87.891 Personal history of nicotine dependence; J44.1 Chronic obstructive pulmonary disease with (acute) exacerbation; I25.10 Atherosclerotic heart disease of native coronary artery without angina pectoris
CPT/HCPCS: 36415; 71045; 71046; 80048; 80053; 81001; 82550; 82553; 82803; 82962; 83605; 83735; 83880; 84484; 85007; 85025; 87040; 87070; 87205; 87275; 87276; 87486; 87581; 87633; 87798; 93005; 93306; 94640; 94660; 94761; 96374; 96375; 96376; 99285; J0456

== ENCOUNTER → 2018-03-05 09:12 | Outpatient (CLI) | payer MEDICARE, MEDICAID, SELFPAY ==
[2018-03-05 11:09] LABS: Albumin Level 3.4 gm/dL (3.4-5.0); Blood Urea Nitrogen 43 mg/dL (7-18); Calcium 9.2 mg/dL (8.5-10.1); Carbon Dioxide 32 mmol/L (21.0-32.0); Chloride 104 mmol/L (98-107); Creatinine,Serum 2.82 mg/dL (0.55-1.02); Estimated Glomerular Filt Rate 16 ml/min (>60); GFR (African American) 20 ML/MIN (>60); Glucose 250 mg/dL (74-106); Phosphorous 4.5 mg/dL (2.4-4.9); Sodium 142 mmol/L (136-145)
[2018-03-06 20:13] LABS: Calcium, Ionized 5.3 mg/dL (4.5-5.6); Parathyroid Hormone Intact 110 pg/mL (15-65); Vitamin D 25 Hydroxy 12.8 ng/mL (30.0-100.0)
== END ==
PROVIDERS: Visit Provider Internal Medicine Nephrology
DX: N18.4 Chronic kidney disease, stage 4 (severe) (principal)
CPT/HCPCS: 36415; 80069; 82330; 82652; 83520; 83970

== ENCOUNTER → 2018-03-08 12:35 | Outpatient (POV) | payer MEDICARE, MEDICAID, SELFPAY | PROVIDERS: Family Provider Family Medicine; PCP Family Medicine; Visit Provider Internal Medicine Nephrology | DX: Z00.00 Encounter for general adult medical examination without abnormal findings (principal) ==

== ENCOUNTER 2018-03-23 16:08 | Inpatient (IN) ==
--- NOTE | 2018-03-23 16:14 | Emergency Department Note ---
ED Disposition Clinical Impression: COPD exacerbation CHF (congestive heart failure) Qualifiers: Heart failure type: unspecified Heart failure chronicity: acute on chronic Qualified Code(s): I50.9 - Heart failure, unspecified Disposition: Still a Patient Condition on Discharge: Fair Referrals: Austin Zendejas MD [Primary Care Provider] - - Critical Care Critical Care Time: No Attestation: On , the high probability of a clinically significant, sudden or life threatening deterioration of the following system(s) required my full and direct attention, intervention and personal management. The time I documented below is in addition to time spent performing reported procedures but includes the following listed in this critical care notation. Medical Decision Making - [place] Inquiry Pt receiving controlled substance: No Vital Signs: 03/23/18 16:13 03/23/18 16:17 03/23/18 16:45 Temperature 99.9 F H Temperature Source Oral Pulse Rate 87 Pulse Rate [Left Radial] 78 Respiratory Rate 24 Blood Pressure [Right Arm] 149/72 Blood Pressure Mean [Right Arm] 97 Blood Pressure Source [Right Arm] Automatic Cuff Blood Pressure Position [Right Arm] Sitting 02 Sat by Pulse Oximetry 71 L 89 L Oxygen Delivery Method Room Air Nasal Cannula Oxygen Flow Rate (LPM) 3 03/23/18 16:46 Temperature Temperature Source Pulse Rate 89 Pulse Rate [Left Radial] Respiratory Rate Blood Pressure [Right Arm] Blood Pressure Mean [Right Arm] Blood Pressure Source [Right Arm] Blood Pressure Position [Right Arm] 02 Sat by Pulse Oximetry Oxygen Delivery Method Oxygen Flow Rate (LPM) - Lab Data Lab Results 03/23/18 16:10: WBC 10.7, RBC 3.43 L, Hgb 10.8 L, Hct 32.1 L, MCV 93.5, MCH 31.6 H, MCHC 33.8, RDW 13.7, Plt Count 264, MPV 9.1, Neut % (Auto) 72.7, Lymph % (Auto) 11.4, [place] % (Auto) 6.0, Eos % (Auto) 8.8, Baso % (Auto) 1.1, Neut # ( Auto) 7.8, Lymph # (Auto) 1.2, [place] # (Auto) 0.6, Eos # (Auto) 0.9 H, Baso # ( Auto) 0.1 03/23/18 16:10: Sodium 141, Potassium 4.1, Chloride 104, Carbon Dioxide 28, Anion Gap 13.1, BUN 54 H, Creatinine 3.37 H, Estimated Creat Clear 14, Estimated GFR 13 L*, Est GFR ( Amer) 16 L*, Glucose 160 H, Calcium 8.9, Total Bilirubin 1.0, AST 19, ALT 20, Alkaline Phosphatase 121 H, Troponin I < 0.02, Total Protein 7.6, Albumin 3.4, Globulin 4.2 H, Albumin/Globulin Ratio 0.8 L 03/23/18 16:41: Specimen Source R/r, O2 % 3, ABG pH 7.35, ABG pCO2 44.0, ABG pO2 64.4 L, ABG HCO3 23.8, ABG Total CO2 25.2, ABG O2 Saturation 91, ABG Base Excess -1.8, Tommy Test Y Result diagrams: 03/23/18 16:10 03/23/18 16:10 Orders (Tests/Meds): ED MEDICATIONS Discontinued Medications Generic Name Dose Route Start Last Admin Trade Name Freq PRN Reason Stop Dose Admin Furosemide 40 mg 03/23/18 17:10 Lasix 40mg/4ml Vial IV 03/23/18 17:11 ONCE ONE Methylprednisolone Sodium Succinate 125 mg 03/23/18 16:59 03/23/18 17:07 Solu-Medrol 125mg/2ml Vial IV 03/23/18 17:00 125 mg ONCE ONE Administration ORDERS Category Date Time Status B-Type Natriuretic Peptide Stat Lab 03/23/18 16:50 Ordered Lactic Acid Stat Lab 03/23/18 16:50 Ordered Upper Respiratory Panel, PCR Stat Lab 03/23/18 16:51 Ordered Blood Culture Stat Micro 03/23/18 16:50 Ordered ABG [Arterial Blood Gas] Stat RT 03/23/18 16:32 Ordered ECG Request by /Yola Stat Y 03/23/18 16:18 Ordered - Radiology Data #1 Image(s): Chest Image Reviewed: Yes I reviewed the patient's radiology image Cardiomegaly, small bilateral effusions, pulmonary congestion, left basilar airspace disease. - ECG Data Tracing #1 EKG interpreted by Wayne Jain MD: Rhythm: sinus Rate: 79 [place]: normal Ectopy: none Conduction: Incomplete left bundle branch block ST Segment Changes: none T Wave Changes: Nonspecific Q Waves: none No evidence of acute ischemia or injury Prior electrocardiagrams reviewed. No change from prior tracings. - Physician Consults Physician Consulted: Patrick Zendejas Time: 17:16 Reason -: Admission Comment/Response: We discussed the patient's clinical information, including history, exam, laboratory and radiology results and ED course. Per hospital procedure, I will write temporary bridge inpatient orders on the patient. Specific orders requested by the admitting physician: Continue nebulizer treatments and steroids General Adult HPI - General Stated complaint: SOA Time Seen by Provider: 03/23/18 16:12 - History of Present Illness HPI narrative: Severe shortness of breath that started about 1 PM. [place] like she was smothering. Had chest discomfort with it which resolved after improvement. Had a cough which was nonproductive. No recent increased swelling. No fever. No hemoptysis or sputum production. Pulse ox taken at home was 67. Received a nebulizer treatment during transport. Dealing much better on arrival. Has chronic renal failure and had a fistula placed in her left arm a week ago. She is not yet a dialysis patient. History of CHF and COPD. Has oxygen to use at home as needed. Has a nebulizer at home. Last used it this morning. She is not currently on steroids. Former smoker. - Related Data Home Medications Medication Instructions Recorded Confirmed Albuterol Sulfate [Proair Hfa 2 puffs IH Q4-6H PRN 12/01/17 03/23/18 90mcg/puff Inh] Amlodipine Besylate [Amlodipine 10 mg PO DAILY 12/01/17 03/23/18 10mg Tab] Atorvastatin Calcium [Atorvastatin 40 mg PO DAILY 12/01/17 03/23/18 40mg Tab] Carvedilol [Carvedilol 25mg Tab] 25 mg PO BID 12/01/17 03/23/18 Ergocalciferol (Vitamin D2) 400 unit PO DAILY 12/01/17 03/23/18 [Vitamin D] Furosemide [Lasix 20mg tablet] 20 mg PO DAILY 12/01/17 03/23/18 Gabapentin [Gabapentin 300mg Cap] 300 mg PO BID 12/01/17 03/23/18 Insulin Glargine,Hum.rec.anlog 45 unit PO DAILY 12/01/17 03/23/18 [Lantus Insulin 100units/mL 10mL vial] Isosorbide Mononitrate [Imdur 60mg 60 mg PO BID 12/01/17 03/23/18 ER tablet] Linagliptin [Tradjenta] 5 mg PO DAILY 12/01/17 03/23/18 Aspirin [Adult Low Dose Aspirin EC] 81 mg PO DAILY 01/11/18 03/23/18 Budesonide/Formoterol Fumarate 2 puff IH BID 01/11/18 03/23/18 [Symbicort 160-4.5 Mcg Inhaler] Ferrous Sulfate 325 mg PO DAILY 01/11/18 03/23/18 Hydrocodone/Acetaminophen 1 each PO NEEDED PRN 01/11/18 03/23/18 [Hydrocodone-Acetamin 5-325 mg] Trazodone HCl 50 mg PO NEEDED PRN 01/11/18 03/23/18 Cefdinir [Omnicef 300mg Capsule] 300 mg PO DAILY 03/23/18 03/23/18 Allergies Allergy/AdvReac Type Severity Reaction Status Date / Time No Known Allergies Allergy Verified 12/01/17 10:10 [facility] History I have reviewed the patient's past medical history: Yes Medical History: Reports:: Aneurysm (abdominal), Atherosclerotic Heart Disease, Carotid Stenosis, Chronic Obstructive Pulmonary Disease (COPD), Congenital Heart Disease, Coronary Artery Disease, Diabetes Mellitus Type 2, Gastroesophageal Reflux Disease(GERD), Heart Murmur, Hyperlipidemia, Hypertension, Lung Disease (COPD, O2 AT5 HOME HAS NOT USED IN WEEKS), MRSA, Peripheral Vascular Disease, Renal Insufficiency Denies:: Cancer, Diabetes Mellitus Type 1, Internal Pacemaker, Seizures Other Medical History: Reports: Cataracts. Denies: Blood Transfusion Reaction Other Surgeries: Yes: Colonoscopy, Coronary Stent, Hysterectomy-Partial. No: Pacemaker Amputation: No Fractures: No - Social History Smoking Status: Former smoker Alcohol Intake: never Occupational Status: disabled Housing: house Family Hx:: Hypertension, Kidney Disease, Stroke ROS Obtained: Yes All systems reviewed & no additional complaints - Constitutional Constitutional: Denies fever(s) - Cardiovascular Cardiovascular: Reports chest pain - Respiratory Respiratory: Yes cough, Yes dyspnea Physical Exam - General General appearance: alert, in no apparent distress - Head Head exam: atraumatic, normocephalic, normal inspection - Eye Eye exam: Present: normal appearance, PERRL, EOMI - ENT ENT exam: Present: normal exam, normal oropharynx, mucous membranes moist, TM's normal bilaterally, normal external ear exam - Neck Neck exam: Present: normal inspection, full ROM, trachea midline. Absent: meningismus, lymphadenopathy - Chest Chest inspection: Present: normal inspection, symmetric chest wall rise. Absent : tenderness - Respiratory Respiratory exam: Present: wheezes, other (rhonchi). Absent: respiratory distress - Cardiovascular Cardiovascular exam: Present: regular rate, normal rhythm. Absent: JVD - Abdominal Exam Abdominal exam: Present: soft, normal bowel sounds. Absent: distention, tenderness, guarding - Extremities Exam Extremities exam: Present: normal inspection, full ROM, normal capillary refill. Absent: calf tenderness - Back Exam Back exam: Present: normal inspection. Absent: tenderness - Neurological Exam Neurological exam: Present: alert, oriented X3 - Psychiatric Psychiatric exam: Present: normal affect, normal mood - Skin Skin exam: Present: warm, dry, intact, normal color
[2018-03-23 16:27] LABS: Basophils # 0.1 K/mm3 (0-0.2); Basophils % 1.1 % (0.1-2.0); Eosinophils # 0.9 K/mm3 (0.0-0.4); Eosinophils % 8.8 % (0.1-12.0); Hematocrit 32.1 % (37.0-47.0); Hemoglobin 10.8 g/dL (12.2-16.2); Lymphocytes # 1.2 K/mm3 (0.7-4.5); Lymphocytes % 11.4 K/mm3 (10-50); Mean Corpuscular HGB Conc 33.8 g/dL (31.8-35.4); Mean Corpuscular Hemoglobin 31.6 pg (27.0-31.2); Mean Corpuscular Volume 93.5 fl (81-99); Mean Platelet Volume 9.1 fl (7.4-10.4); Monocytes # 0.6 K/mm3 (0.1-1.0); Neutrophils # 7.8 K/mm3 (1.8-7.8); Neutrophils % 72.7 % (37.0-80.0); Platelet Count 264 K/mm3 (142-424); Red Blood Count 3.43 M/mm3 (4.20-5.40); Red Cell Distribution Width 13.7 % (11.5-17.5); White Blood Count 10.7 K/mm3 (4.8-10.8)
[2018-03-23 16:40] LABS: Alanine Aminotransferase 20 U/L (12-78); Albumin Level 3.4 gm/dL (3.4-5.0); Albumin/Globulin Ratio 0.8 (1.1-1.8); Alkaline Phosphatase 121 U/L (46-116); Anion Gap 13.1 mEq/L (5-15); Aspartate Amino Transferase 19 U/L (15-37); Blood Urea Nitrogen 54 mg/dL (7-18); Calcium 8.9 mg/dL (8.5-10.1); Carbon Dioxide 28 mmol/L (21.0-32.0); Chloride 104 mmol/L (98-107); Globulin 4.2 gm/dl (1.3-3.2); Glucose 160 mg/dL (74-106); Potassium 4.1 mmoL/L (3.5-5.1); Sodium 141 mmol/L (136-145); Total Protein,Serum 7.6 gm/dL (6.4-8.2)
[2018-03-23 16:42] LABS: ABG Base Excess -1.8 mmol/L (-2.4-2.3); ABG HCO3 23.8 mmhg (22.0-26.0); ABG Oxygen Saturation 91 % (90-100); ABG PH 7.35 mmol/L (7.35-7.45); ABG PO2 64.4 mmhg (80-100); ABG TCO2 25.2 mmhg (23-27)
[2018-03-23 16:43] LABS: Allen's Test Y; Oxygen 3 %
--- NOTE | 2018-03-24 06:28 | History & Physical Report ---
*Admission Date: 03/23/18 *Chief complaint: Shortness of breath *History of present illness: 77-year-old female with severe chronic kidney disease, COPD, coronary artery disease, mitral valve disease presented to the emergency department after acute onset of shortness of breath in the late morning yesterday. Patient states upon awakening yesterday she felt like her normal self. Around 11 AM she was having a conversation with someone when she felt acute onset of shortness of breath and tightness in her lungs. She presented to the ER where she was evaluated and diagnosed with a COPD exacerbation as well as mild CHF based on chest x-ray. She was given 40 mg of Lasix intravenously. She has been admitted. This morning she is feeling better. She is still requiring supplemental oxygen. During onset of illness she denies fevers or chills, allergy symptoms, cough with sputum production. [facility] History I have reviewed the patient's past medical history: Yes Medical History: Reports:: Aneurysm (abdominal), Atherosclerotic Heart Disease, Carotid Stenosis, Chronic Obstructive Pulmonary Disease (COPD), Congenital Heart Disease, Coronary Artery Disease, Diabetes Mellitus Type 2, Gastroesophageal Reflux Disease(GERD), Heart Murmur, Home Oxygen, Hyperlipidemia , Hypertension, Lung Disease (COPD, O2 AT5 HOME HAS NOT USED IN WEEKS), MRSA, Peripheral Vascular Disease, Renal Insufficiency Denies:: Cancer, Diabetes Mellitus Type 1, Internal Pacemaker, Seizures Other Medical History: Reports: Cataracts. Denies: Blood Transfusion Reaction Other Surgeries: Yes: Colonoscopy, Coronary Stent, Hysterectomy-Partial. No: Pacemaker Amputation: No Fractures: No - *Social History Educational Level: Completed Grade School Smoking Status: Never smoker Alcohol Intake: never Occupational Status: disabled Housing: house - Psychiatric History Expresses thoughts of harming self/others: None Suicide Plan Description: No Plan *Family Hx:: Hypertension, Kidney Disease, Stroke Review of Systems - Review of Systems See [facility] Meds Home Medications Medication Instructions Recorded Confirmed Type Albuterol Sulfate [Proair Hfa 2 puffs IH Q4-6H PRN 12/01/17 03/23/18 History 90mcg/puff Inh] Amlodipine Besylate [Amlodipine 10 mg PO DAILY 12/01/17 03/23/18 History 10mg Tab] Atorvastatin Calcium [Atorvastatin 40 mg PO HS 12/01/17 03/23/18 History 40mg Tab] Carvedilol [Carvedilol 25mg Tab] 25 mg PO BID 12/01/17 03/23/18 History Ergocalciferol (Vitamin D2) 50,000 unit PO WEEKLY 12/01/17 03/23/18 History [Vitamin D] Furosemide [Lasix 20mg tablet] 20 mg PO DAILY 12/01/17 03/23/18 History Gabapentin [Gabapentin 300mg Cap] 300 mg PO BID 12/01/17 03/23/18 History Insulin Glargine,Hum.rec.anlog 45 unit PO DAILY 12/01/17 03/23/18 History [Lantus Insulin 100units/mL 10mL vial] Isosorbide Mononitrate [Imdur 60mg 60 mg PO BID 12/01/17 03/23/18 History ER tablet] Linagliptin [Tradjenta] 5 mg PO DAILY 12/01/17 03/23/18 History Aspirin [Adult Low Dose Aspirin EC] 81 mg PO DAILY 01/11/18 03/23/18 History Budesonide/Formoterol Fumarate 2 puff IH BID 01/11/18 03/23/18 History [Symbicort 160-4.5 Mcg Inhaler] Ferrous Sulfate 325 mg PO DAILY 01/11/18 03/23/18 History Hydrocodone/Acetaminophen 1 each PO NEEDED PRN 01/11/18 03/23/18 History [Hydrocodone-Acetamin 5-325 mg] Trazodone HCl 50 mg PO NEEDED PRN 01/11/18 03/23/18 History [place]chol Chloride [Urecholine 10 mg PO TID 03/23/18 03/23/18 History 10mg tablet] Clopidogrel Bisulfate [Plavix 75mg 75 mg PO DAILY 03/23/18 03/23/18 History Tab] Omeprazole [Omeprazole 40mg 40 mg PO DAILY 03/23/18 03/23/18 History Capsule] Allergies Allergy/AdvReac Type Severity Reaction Status Date / Time No Known Allergies Allergy Verified 12/01/17 10:10 Exam Vital signs and Labs for Last 24 Hours: Temp Pulse Resp BP Pulse Ox 98.6 F 68 16 150/46 90 L 03/24/18 04:49 03/24/18 06:08 03/24/18 04:49 03/24/18 04:49 03/24/18 06:08 Laboratory Results - last 24 hr 03/23/18 16:10: WBC 10.7, RBC 3.43 L, Hgb 10.8 L, Hct 32.1 L, MCV 93.5, MCH 31.6 H, MCHC 33.8, RDW 13.7, Plt Count 264, MPV 9.1, Neut % (Auto) 72.7, Lymph % (Auto) 11.4, [place] % (Auto) 6.0, Eos % (Auto) 8.8, Baso % (Auto) 1.1, Neut # ( Auto) 7.8, Lymph # (Auto) 1.2, [place] # (Auto) 0.6, Eos # (Auto) 0.9 H, Baso # ( Auto) 0.1 03/23/18 16:10: Sodium 141, Potassium 4.1, Chloride 104, Carbon Dioxide 28, Anion Gap 13.1, BUN 54 H, Creatinine 3.37 H, Estimated Creat Clear 14, Estimated GFR 13 L*, Est GFR ( Amer) 16 L*, Glucose 160 H, Calcium 8.9, Total Bilirubin 1.0, AST 19, ALT 20, Alkaline Phosphatase 121 H, Troponin I < 0.02, Total Protein 7.6, Albumin 3.4, Globulin 4.2 H, Albumin/Globulin Ratio 0.8 L 03/23/18 16:10: B-Natriuretic Peptide 368 H 03/23/18 16:41: Specimen Source R/r, O2 % 3, ABG pH 7.35, ABG pCO2 44.0, ABG pO2 64.4 L, ABG HCO3 23.8, ABG Total CO2 25.2, ABG O2 Saturation 91, ABG Base Excess -1.8, Tommy Test Y 03/23/18 18:24: Lactic Acid 0.6 03/23/18 20:32: POC Glucose 215 H 03/23/18 21:38: POC Glucose 231 H I & O for Last 24 hours: Intake & Output 03/21/18 03/22/18 03/23/18 03/24/18 11:59 11:59 11:59 11:59 Weight 148 lb 9 oz Narrative: She is awake and alert sitting up in bed. Patient is wearing nasal cannula. He is in no respiratory distress. Oropharynx is moist and clear. Neck is without lymphadenopathy. Lungs are clear to auscultation anteriorly but posteriorly she has expiratory wheezes and crackles at the left lung base. Heart has a regular rate and rhythm with 4 out of 6 systolic murmur heard throughout the precordium. Abdomen is soft, nontender, nondistended. Extremities are warm to the touch and without edema. H&P: Result - Labs Labs: Short CBC 03/23/18 Range/Units 16:10 WBC 10.7 (4.8-10.8) K/mm3 Hgb 10.8 L (12.2-16.2) g/dL Hct 32.1 L (37.0-47.0) % Plt Count 264 (142-424) K/mm3 BMP 03/23/18 16:10 Sodium 141 Potassium 4.1 Chloride 104 Carbon Dioxide 28 BUN 54 H Creatinine 3.37 H Glucose 160 H Calcium 8.9 Cardiac Enzymes 03/23/18 Range/Units 16:10 Troponin I < 0.02 (0.00-0.06) ng/ml Liver Function 03/23/18 Range/Units 16:10 Total Bilirubin 1.0 (0.2-1.0) mg/dL AST 19 (15-37) U/L ALT 20 (12-78) U/L Alkaline Phosphatase 121 H (46-116) U/L Albumin 3.4 (3.4-5.0) gm/dL Assessment and Plan (1) Type 2 diabetes mellitus with hyperglycemia Current visit: Yes Status: Acute Category: Medical Code(s): E11.65 - Type 2 diabetes mellitus with hyperglycemia (2) COPD exacerbation Current visit: Yes Status: Acute Category: Medical Code(s): J44.1 - Chronic obstructive pulmonary disease with (acute) exacerbation (3) Congestive heart failure Current visit: Yes Status: Acute Qualifiers: Heart failure type: unspecified Heart failure chronicity: acute on chronic Qualified Code(s): I50.9 - Heart failure, unspecified Category: Medical Code(s): I50.9 - Heart failure, unspecified (4) Chronic kidney disease, stage IV (severe) Current visit: No Status: Chronic Category: Medical Code(s): N18.4 - Chronic kidney disease, stage 4 (severe) (5) Moderate aortic stenosis Current visit: No Status: Chronic Category: Medical Code(s): I35.0 - Nonrheumatic aortic (valve) stenosis - Assessment and plan all Dx Assessment and Plan for all problems:: Patient is already showing signs of improvement. We will make attempts to collect sputum although I suspect she may have had some mild flash pulmonary edema trigger symptoms due to the description of acuity of onset. Continue steroids and duo nebs for mild COPD exacerbation. Ambulate as tolerated. Out of bed to chair today. Patient will receive her home dose of Lasix and will be fluid restricted.
--- NOTE | 2018-03-24 07:25 | Pharmacy Consult Notes ---
[facility] Pharmacy VTE Monitoring - Patient Demographics Admission date: 03/23/18 Report Date: 03/24/18 Time: 07:25 Allergies/Adverse Reactions: Patient Allergies No Known Allergies Allergy (Verified 12/01/17 10:10) Height: 1.57 m Weight: 67.387 kg Patient Problems: Current Active Problems Congestive heart failure (Acute) COPD exacerbation (Acute) Type 2 diabetes mellitus with hyperglycemia (Acute) - VTE Risk Labs: VTE Related Lab Results Hgb 10.8 g/dL (12.2-16.2) L 03/23/18 16:10 Hct 32.1 % (37.0-47.0) L 03/23/18 16:10 Plt Count 264 K/mm3 (142-424) 03/23/18 16:10 BUN 54 mg/dL (7-18) H 03/23/18 16:10 Creatinine 3.37 mg/dL (0.55-1.02) H 03/23/18 16:10 Estimated Creat Clear 14 mL/min (0-300) 03/23/18 16:10 Was VTE Risk Assessment Performed: Yes VTE Score: 5 VTE Risk Level: Low Risk - Prophylaxis VTE Prophylaxis Ordered?: Yes Types of VTE Prophylaxis: TEDS Knee High Location of Applied Device: Bilateral Lower Extremeties - VTE Diagnosis Confirmed Treatment or plan recommended: Continue Current Treatment
[2018-03-25 06:18] LABS: Coronavirus 229E Not Detected (NotDetected); Coronavirus NL63 Not Detected (NotDetected); Coronavirus OC43 Not Detected (NotDetected); Coronovirus HKU1,PCR Not Detected (NotDetected)
--- NOTE | 2018-03-25 07:03 | Progress Note ---
Internal Medicine - PN: Subj *Date: 03/25/18 *Time: 07:02 Interval history: Patient tells me she is feeling well this morning. She has been able to ambulate to the bathroom and to the window out shortness of breath. O2 sats have been as low as 89% on room air. Her cough remains nonproductive. Exam Vital signs and Labs for Last 24 Hours: Temp Pulse Resp BP Pulse Ox 97.7 F 74 18 151/53 94 L 03/25/18 00:00 03/25/18 06:41 03/25/18 00:00 03/25/18 00:00 03/25/18 06:41 Laboratory Results - last 24 hr 03/24/18 06:20: Sodium 141, Potassium 4.0, Chloride 104, Carbon Dioxide 26, Anion Gap 15.0, BUN 63 H, Creatinine 3.43 H, Estimated Creat Clear 14, Estimated GFR 13 L*, Est GFR ( Amer) 16 L*, Glucose 224 H D 03/24/18 11:19: POC Glucose 382 H* 03/24/18 16:55: POC Glucose 393 H* 03/24/18 21:35: POC Glucose 452 H* 03/25/18 06:04: POC Glucose 98 I & O for Last 24 hours: Intake & Output 03/22/18 03/23/18 03/24/18 03/25/18 11:59 11:59 11:59 11:59 Intake Total 480 / 480 860 / 860 Balance 480 / 480 860 / 860 Weight 148 lb 9 oz 149 lb 9 oz Microbiology Reports for the Last 24 Hours: Microbiology 03/23/18 18:24 Blood Blood Culture - Preliminary NO GROWTH AFTER 24 HOURS 03/23/18 18:24 Blood Blood Culture - Preliminary NO GROWTH AFTER 24 HOURS Narrative: Patient is in no distress. Lungs have a faint expiratory wheeze heard posteriorly overall there has been improvement since yesterday. Heart has a regular rate and rhythm with loud systolic murmur that can be heard both anteriorly across the precordium and posteriorly. Assessment and Plan (1) Type 2 diabetes mellitus with hyperglycemia Current visit: Yes Status: Acute Category: Medical Code(s): E11.65 - Type 2 diabetes mellitus with hyperglycemia (2) COPD exacerbation Current visit: Yes Status: Acute Category: Medical Code(s): J44.1 - Chronic obstructive pulmonary disease with (acute) exacerbation (3) Congestive heart failure Current visit: Yes Status: Acute Qualifiers: Heart failure type: unspecified Heart failure chronicity: acute on chronic Qualified Code(s): I50.9 - Heart failure, unspecified Category: Medical Code(s): I50.9 - Heart failure, unspecified (4) Chronic kidney disease, stage IV (severe) Current visit: No Status: Chronic Category: Medical Code(s): N18.4 - Chronic kidney disease, stage 4 (severe) (5) Moderate aortic stenosis Current visit: No Status: Chronic Category: Medical Code(s): I35.0 - Nonrheumatic aortic (valve) stenosis - Assessment and plan all Dx Assessment and Plan for all problems:: Continue current care. Anticipate discharge tomorrow if patient continues this rate of improvement.
--- NOTE | 2018-03-26 07:13 | Discharge Summary ---
General - General Admission date:: 03/23/18 Discharge date: 03/26/18 HPI HPI: 77-year-old female with severe chronic kidney disease, COPD, coronary artery disease, mitral valve disease presented to the emergency department after acute onset of shortness of breath in the late morning yesterday. Patient states upon awakening yesterday she felt like her normal self. Around 11 AM she was having a conversation with someone when she felt acute onset of shortness of breath and tightness in her lungs. She presented to the ER where she was evaluated and diagnosed with a COPD exacerbation as well as mild CHF based on chest x-ray. She was given 40 mg of Lasix intravenously. She has been admitted. This morning she is feeling better. She is still requiring supplemental oxygen. During onset of illness she denies fevers or chills, allergy symptoms, cough with sputum production. Hospital Course Hospital Course: Patient was admitted and placed on Solu-Medrol 60 mg every 8 hours as well as duo nebs 4 times daily. She was placed on fluid restrictions due to her underlying CHF. Fluid restrictions were 1200 mL's per day. Patient progressed daily with decrease in wheezing until the day of discharge when wheezing was absent. Patient was given home medications while hospitalized there will be no change made to her home medication regimen. She was started on sliding scale insulin due to hyperglycemia from steroids. Once wheezing had resolved patient was discharged home and will take low-dose oral steroids over the next few days until follow-up. Patient will follow-up with me on Thursday, March 29. Objective Vital signs: Temp Pulse Resp BP Pulse Ox 97.9 F 100 H 20 129/50 90 L 03/26/18 04:00 03/26/18 06:38 03/26/18 04:00 03/26/18 04:00 03/26/18 06:38 Results Labs on day of discharge: Labs from last 24 hours 03/26/18 03/25/18 03/25/18 06:04 Unknown 20:37 POC Glucose 346 H* 372 H* Chlamy pneumoniae PCR Not detected Adenovirus (PCR) Not detected B.parapertussis DNA PCR Not detected Coronavirus OC43 (PCR) Not detected Coronavirus HKU1 (PCR) Not detected Coronavirus 229E (PCR) Not detected Coronavirus NL63 (PCR) Not detected Human Metapneumovir PCR Not detected Influenza A (H1) PCR Not detected Influ A (H1N1/09) PCR Not detected Influenza A (H3) PCR Not detected Influenza Type A (PCR) Not detected Influenza Type B (PCR) Not detected M. pneumoniae (PCR) Not detected Parainfluenza 1 (PCR) Not detected Parainfluenza 2 (PCR) Not detected Parainfluenza 3 (PCR) Not detected Parainfluenza 4 (PCR) Not detected RSV (PCR) Not detected Entero/Rhino (PCR) Not detected 03/25/18 03/25/18 16:45 11:51 POC Glucose 413 H* 315 H* Chlamy pneumoniae PCR Adenovirus (PCR) B.parapertussis DNA PCR Coronavirus OC43 (PCR) Coronavirus HKU1 (PCR) Coronavirus 229E (PCR) Coronavirus NL63 (PCR) Human Metapneumovir PCR Influenza A (H1) PCR Influ A (H1N1/09) PCR Influenza A (H3) PCR Influenza Type A (PCR) Influenza Type B (PCR) M. pneumoniae (PCR) Parainfluenza 1 (PCR) Parainfluenza 2 (PCR) Parainfluenza 3 (PCR) Parainfluenza 4 (PCR) RSV (PCR) Entero/Rhino (PCR) Preliminary micro results at discharge 03/23/18 18:24 Blood Culture - Preliminary Blood NO GROWTH AFTER 48 HOURS 03/23/18 18:24 Blood Culture - Preliminary Blood NO GROWTH AFTER 48 HOURS DS: Diagnosis - Discharge Diagnosis (1) COPD exacerbation Status: Acute (2) Type 2 diabetes mellitus with hyperglycemia Status: Chronic (3) Congestive heart failure Status: Chronic (4) Chronic kidney disease, stage IV (severe) Status: Chronic (5) Moderate aortic stenosis Status: Chronic Discharge Plan - Patient Discharge Instructions ACTIVITY: Continue current activity DIET: continue same diet Patient Instructions: Type 2 Diabetes, Chronic Obstructive Pulmonary Disease, Heart Failure, Acute Renal Failure - Follow up Plan Follow up with: Austin Zendejas MD [Primary Care Provider] - 03/29/18 Disposition: Home, Self-Fci Medications: Home Medications Medication Instructions Recorded Confirmed Type RX: Albuterol Sulfate [Proair Hfa 2 puffs IH Q4-6H PRN 12/01/17 03/23/18 History 90mcg/puff Inh] RX: Amlodipine Besylate 10 mg PO DAILY 12/01/17 03/23/18 History [Amlodipine 10mg Tab] RX: Atorvastatin Calcium 40 mg PO HS 12/01/17 03/23/18 History [Atorvastatin 40mg Tab] RX: Carvedilol [Carvedilol 25mg 25 mg PO BID 12/01/17 03/23/18 History Tab] RX: Ergocalciferol (Vitamin D2) 50,000 unit PO WEEKLY 12/01/17 03/23/18 History [Vitamin D] RX: Furosemide [Lasix 20mg tablet] 20 mg PO DAILY 12/01/17 03/23/18 History RX: Gabapentin [Gabapentin 300mg 300 mg PO BID 12/01/17 03/23/18 History Cap] RX: Insulin Glargine,Hum.rec.anlog 45 unit PO DAILY 12/01/17 03/23/18 History [Lantus Insulin 100units/mL 10mL vial] RX: Isosorbide Mononitrate [Imdur 60 mg PO BID 12/01/17 03/23/18 History 60mg ER tablet] RX: Linagliptin [Tradjenta] 5 mg PO DAILY 12/01/17 03/23/18 History RX: Aspirin [Adult Low Dose 81 mg PO DAILY 01/11/18 03/23/18 History Aspirin EC] RX: Budesonide/Formoterol Fumarate 2 puff IH BID 01/11/18 03/23/18 History [Symbicort 160-4.5 Mcg Inhaler] RX: Ferrous Sulfate 325 mg PO DAILY 01/11/18 03/23/18 History RX: Hydrocodone/Acetaminophen 1 each PO BIDP PRN 01/11/18 03/24/18 History [Hydrocodone-Acetamin 5-325 mg] RX: Trazodone HCl 50 mg PO HSP PRN 01/11/18 03/24/18 History Omeprazole [Omeprazole 40mg 40 mg PO DAILY 03/23/18 03/23/18 History Capsule] RX: Bethanechol Chloride 10 mg PO TID 03/23/18 03/23/18 History [Urecholine 10mg tablet] Prescriptions/Medication Reconciliation: New RX: predniSONE [Deltasone 10mg tablet] 10 mg PO DAILY 5 Days #5 tab Continue RX: Isosorbide Mononitrate [Imdur 60mg ER tablet] 60 mg PO BID RX: Linagliptin [Tradjenta] 5 mg PO DAILY RX: Ergocalciferol (Vitamin D2) [Vitamin D] 50,000 unit PO WEEKLY RX: Amlodipine Besylate [Amlodipine 10mg Tab] 10 mg PO DAILY RX: Albuterol Sulfate [Proair Hfa 90mcg/puff Inh] 2 puffs IH Q4-6H PRN PRN Reason: Shortness Of Breath RX: Insulin Glargine,Hum.rec.anlog [Lantus Insulin 100units/mL 10mL vial] 45 unit PO DAILY RX: Carvedilol [Carvedilol 25mg Tab] 25 mg PO BID RX: Furosemide [Lasix 20mg tablet] 20 mg PO DAILY RX: Gabapentin [Gabapentin 300mg Cap] 300 mg PO BID RX: Trazodone HCl 50 mg PO HSP PRN PRN Reason: Sleep RX: Hydrocodone/Acetaminophen [Hydrocodone-Acetamin 5-325 mg] 1 each PO BIDP PRN PRN Reason: pain RX: Ferrous Sulfate 325 mg PO DAILY RX: Aspirin [Adult Low Dose Aspirin EC] 81 mg PO DAILY RX: Bethanechol Chloride [Urecholine 10mg tablet] 10 mg PO TID Omeprazole [Omeprazole 40mg Capsule] 40 mg PO DAILY RX: Atorvastatin Calcium [Atorvastatin 40mg Tab] 40 mg PO HS RX: Budesonide/Formoterol Fumarate [Symbicort 160-4.5 Mcg Inhaler] 2 puff IH BID
[2018-03-26 07:59] VITALS: BP 142/61
== END 2018-03-26 08:20 | disposition home or self-care (01) ==
LOC: 2ND 16:08 → ER 16:08 → 2ND 19:05
PROVIDERS: ADMIT Emergency Medicine; ATTEND Family Medicine

== ENCOUNTER 2018-04-30 18:56 | Inpatient (IN) ==
[2018-04-30 19:31] LABS: Basophils # 0.1 K/mm3 (0-0.2); Basophils % 1.1 % (0.1-2.0); Eosinophils # 0.8 K/mm3 (0.0-0.4); Hematocrit 36.7 % (37.0-47.0); Hemoglobin 11.5 g/dL (12.2-16.2); Lymphocytes # 1.1 K/mm3 (0.7-4.5); Lymphocytes % 12.1 K/mm3 (10-50); Mean Corpuscular HGB Conc 31.3 g/dL (31.8-35.4); Mean Corpuscular Hemoglobin 29.9 pg (27.0-31.2); Mean Corpuscular Volume 95.8 fl (81-99); Mean Platelet Volume 8.7 fl (7.4-10.4); Monocytes # 0.5 K/mm3 (0.1-1.0); Monocytes % 5.5 % (1.7-9.3); Neutrophils # 6.7 K/mm3 (1.8-7.8); Neutrophils % 72.4 % (37.0-80.0); Platelet Count 274 K/mm3 (142-424); Red Blood Count 3.84 M/mm3 (4.20-5.40); Red Cell Distribution Width 13.7 % (11.5-17.5); White Blood Count 9.2 K/mm3 (4.8-10.8)
[2018-04-30 19:42] LABS: Anion Gap 11.5 mEq/L (5-15); Blood Urea Nitrogen 46 mg/dL (7-18); Calcium 8.6 mg/dL (8.5-10.1); Carbon Dioxide 27 mmol/L (21.0-32.0); Chloride 103 mmol/L (98-107); Glucose 192 mg/dL (74-106); Potassium 4.5 mmoL/L (3.5-5.1); Sodium 137 mmol/L (136-145)
--- NOTE | 2018-04-30 21:04 | Emergency Department Note ---
ED Disposition Clinical Impression: Community acquired pneumonia Qualifiers: Laterality: right Lung location: lower lobe of lung Qualified Code(s): J18.1 - Lobar pneumonia, unspecified organism Chronic renal disease Qualifiers: Chronic kidney disease stage: unspecified stage Qualified Code(s): N18.9 - Chronic kidney disease, unspecified Disposition: Admitted as Observation Condition on Discharge: Good Referrals: Austin Zendejas MD [Primary Care Provider] - - Critical Care Critical Care Time: No Attestation: On 04/30/18, the high probability of a clinically significant, sudden or life threatening deterioration of the following system(s) required my full and direct attention, intervention and personal management. The time I documented below is in addition to time spent performing reported procedures but includes the following listed in this critical care notation. Medical Decision Making - Medical Records Medical records reviewed: Yes: I reviewed the patient's medical records. - Jalil Inquiry Pt receiving controlled substance: No Vital Signs: 04/30/18 19:07 04/30/18 19:39 04/30/18 20:21 Temperature 99.4 F Temperature Source Oral Pulse Rate 79 Pulse Rate [Left Radial] 81 80 Respiratory Rate 28 H 18 Blood Pressure [Right Arm] 172/68 144/66 Blood Pressure Mean [Right Arm] 102 92 Blood Pressure Source [Right Arm] Automatic Cuff Automatic Cuff Blood Pressure Position [Right Arm] Sitting Sitting 02 Sat by Pulse Oximetry 89 L 92 L Oxygen Delivery Method Nasal Cannula Room Air Oxygen Flow Rate (LPM) 2 04/30/18 20:30 04/30/18 21:15 04/30/18 22:22 Temperature 100.2 F H Temperature Source Rectal Pulse Rate Pulse Rate [Left Radial] 81 83 Respiratory Rate 24 24 Blood Pressure [Right Arm] 157/65 158/88 Blood Pressure Mean [Right Arm] 95 111 Blood Pressure Source [Right Arm] Automatic Cuff Automatic Cuff Blood Pressure Position [Right Arm] Sitting Sitting 02 Sat by Pulse Oximetry 92 L 92 L Oxygen Delivery Method Nasal Cannula Nasal Cannula Oxygen Flow Rate (LPM) 3 3 04/30/18 23:15 Temperature Temperature Source Pulse Rate 89 Pulse Rate [Left Radial] Respiratory Rate Blood Pressure [Right Arm] Blood Pressure Mean [Right Arm] Blood Pressure Source [Right Arm] Blood Pressure Position [Right Arm] 02 Sat by Pulse Oximetry Oxygen Delivery Method Oxygen Flow Rate (LPM) - Lab Data Lab results reviewed: Yes: I reviewed the patient's lab results. Lab Results 04/30/18 19:05: WBC 9.2, RBC 3.84 L, Hgb 11.5 L, Hct 36.7 L, MCV 95.8, MCH 29.9 , MCHC 31.3 L, RDW 13.7, Plt Count 274, MPV 8.7, Neut % (Auto) 72.4, Lymph % ( Auto) 12.1, Cache % (Auto) 5.5, Eos % (Auto) 9.0, Baso % (Auto) 1.1, Neut # (Auto ) 6.7, Lymph # (Auto) 1.1, Cache # (Auto) 0.5, Eos # (Auto) 0.8 H, Baso # (Auto) 0.1 04/30/18 19:05: Sodium 137, Potassium 4.5, Chloride 103, Carbon Dioxide 27, Anion Gap 11.5, BUN 46 H, Creatinine 2.83 H, Estimated Creat Clear 17, Estimated GFR 16 L*, Est GFR ( Amer) 19 L*, Glucose 192 H, Calcium 8.6, Troponin I < 0.02 04/30/18 19:05: B-Natriuretic Peptide 555 H 04/30/18 19:05: Total Bilirubin 0.7, Direct Bilirubin 0.1, Indirect Bilirubin 0.6, AST 22, ALT 29, Alkaline Phosphatase 113, Total Protein 7.4, Albumin 3.5, Lipase 175 04/30/18 21:30: Lactic Acid 1.2 04/30/18 22:10: Urine Color Yellow, Urine Appearance Clear, Urine pH 5.5, Ur Specific [place] 1.020, Urine Protein 2+, Urine Glucose (UA) Negative, Urine Ketones Negative, Urine Blood Negative, Urine Nitrate Negative, Urine Bilirubin Negative, Urine Urobilinogen 0.2, Ur Leukocyte Esterase Negative, Urine WBC 3-5 , Ur Squamous Epith Cells 3-5, Ur Renal Epithelial Cell 3-5 04/30/18 22:30: Troponin I < 0.02 Result diagrams: 04/30/18 19:05 04/30/18 19:05 Orders (Tests/Meds): ED MEDICATIONS Generic Name Dose Route Start Last Admin Trade Name Freq PRN Reason Stop Dose Admin Ceftriaxone Sodium 1 gm/ 50 mls @ 100 mls/hr 04/30/18 23:30 Sodium Chloride IV 05/14/18 23:29 Q24H [facility] Protocol Azithromycin 500 mg/ Sodium 250 mls @ 250 mls/hr 04/30/18 23:30 Chloride IV 05/14/18 23:29 Q24H [facility] Protocol Discontinued Medications Generic Name Dose Route Start Last Admin Trade Name John PRN Reason Stop Dose Admin Acetaminophen 650 mg 04/30/18 22:28 04/30/18 22:31 Acetaminophen 325mg Tab PO 04/30/18 22:29 650 mg ONCE ONE Administration Albuterol/Ipratropium 3 ml 04/30/18 19:24 04/30/18 19:38 Duoneb 3ml [facility] 04/30/18 19:25 3 ml ONCE ONE Administration Albuterol/Ipratropium 3 ml 04/30/18 22:52 04/30/18 23:01 Duoneb 3ml [facility] 04/30/18 22:53 3 ml ONCE ONE Administration Aspirin 243 mg 04/30/18 19:41 04/30/18 20:06 Aspirin 81mg Chewable Tablet PO 04/30/18 19:42 243 mg ONCE ONE Administration ORDERS Category Date Time Status XR chest portable Stat Exams 04/30/18 19:16 Taken UA [Urinalysis and Microscopic] Stat Lab 04/30/18 22:23 Ordered Blood Culture Stat Micro 04/30/18 22:23 Ordered - Radiology Data #1 Image(s): Chest Image Reviewed: Yes I reviewed the patient's radiology image Preliminary Findings: Abnormal (rt lung changes ) - ECG Data Tracing #1 Normal Sinus Rhythm: Yes Ischemic changes: non-specific ST-T wave changes ECG compared to prior tracings: there are no significant changes Resp/SOB HPI - General Chief Complaint: Shortness of Breath/Dyspnea Stated Complaint: SOB,Swollen feet,legs Time Seen by Provider: 04/30/18 20:10 Mode of Arrival: Ambulatory Source of Information: Patient, Relative, Medical Record Limitations: No Limitations Description of Symptoms (Recalled from ER Triage Doc. by RN): to ed per pvt car with c/o sob, chest heaviness and swelling in feet and ankles. 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 MD Complaint: shortness of breath Onset (ago): hour(s) Severity: moderate Known history of: COPD Treatment prior to arrival: none - Related Data Home oxygen amount: none Home Medications Medication Instructions Recorded Confirmed Albuterol Sulfate [Proair Hfa 2 puffs IH Q4-6H PRN 12/01/17 04/30/18 90mcg/puff Inh] Amlodipine Besylate [Amlodipine 10 mg PO DAILY 12/01/17 04/30/18 10mg Tab] Atorvastatin Calcium [Atorvastatin 40 mg PO HS 12/01/17 04/30/18 40mg Tab] Carvedilol [Carvedilol 25mg Tab] 25 mg PO BID 12/01/17 04/30/18 Ergocalciferol (Vitamin D2) 50,000 unit PO WEEKLY 12/01/17 04/30/18 [Vitamin D] Furosemide [Lasix 20mg tablet] 20 mg PO DAILY 12/01/17 04/30/18 Gabapentin [Gabapentin 300mg Cap] 300 mg PO BID 12/01/17 04/30/18 Insulin Glargine,Hum.rec.anlog 45 unit PO DAILY 12/01/17 04/30/18 [Lantus Insulin 100units/mL 10mL vial] Isosorbide Mononitrate [Imdur 60mg 60 mg PO BID 12/01/17 04/30/18 ER tablet] Linagliptin [Tradjenta] 5 mg PO DAILY 12/01/17 04/30/18 Aspirin [Adult Low Dose Aspirin EC] 81 mg PO DAILY 01/11/18 04/30/18 Budesonide/Formoterol Fumarate 2 puff IH BID 01/11/18 04/30/18 [Symbicort 160-4.5 Mcg Inhaler] Ferrous Sulfate 325 mg PO DAILY 01/11/18 04/30/18 Hydrocodone/Acetaminophen 1 each PO BIDP PRN 01/11/18 04/30/18 [Hydrocodone-Acetamin 5-325 mg] Trazodone HCl 50 mg PO HSP PRN 01/11/18 04/30/18 Bethanechol Chloride [Urecholine 10 mg PO TID 03/23/18 04/30/18 10mg tablet] Omeprazole [Omeprazole 40mg 40 mg PO DAILY 03/23/18 04/30/18 Capsule] predniSONE [Deltasone 10mg tablet] 10 mg PO DAILY 04/30/18 04/30/18 Allergies Allergy/AdvReac Type Severity Reaction Status Date / Time No Known Allergies Allergy Verified 12/01/17 10:10 [facility] History I have reviewed the patient's past medical history: Yes Medical History: Reports:: Aneurysm (abdominal), Atherosclerotic Heart Disease, Carotid Stenosis, Chronic Obstructive Pulmonary Disease (COPD), Congenital Heart Disease, Coronary Artery Disease, Diabetes Mellitus Type 2, Gastroesophageal Reflux Disease(GERD), Heart Murmur, Home Oxygen, Hyperlipidemia , Hypertension, Lung Disease (COPD, O2 AT5 HOME HAS NOT USED IN WEEKS), MRSA, Peripheral Vascular Disease, Renal Insufficiency Denies:: Cancer, Diabetes Mellitus Type 1, Internal Pacemaker, Seizures Other Medical History: Reports: Cataracts. Denies: Blood Transfusion Reaction Other Surgeries: Yes: Colonoscopy, Coronary Stent, Hysterectomy-Partial. No: Pacemaker Amputation: No Fractures: No - Social History Smoking Status: Never smoker Alcohol Intake: never Occupational Status: disabled Housing: house - Psychiatric History Expresses thoughts of harming self/others: None Suicide Plan Description: No Plan Family Hx:: Hypertension, Kidney Disease, Stroke ROS Obtained: Yes All systems reviewed & no additional complaints - Constitutional Constitutional: Denies fever(s) - Eyes Eyes: Denies change in vision - ENT Ears, Nose, Mouth, and Throat: Denies sore throat - Cardiovascular Cardiovascular: Reports chest pain, Denies rapid heart rate - Respiratory Respiratory: Yes cough, Yes dyspnea - Gastrointestinal Gastrointestingal: Denies: abdominal pain - Genitourinary Female Genitourinary: Denies hematuria - Musculoskeletal Musculoskeletal: Denies joint pain, Denies joint swelling - Integumentary/Breasts Skin/Breast: Denies rash - Neurologic Neurologic: Denies seizure-like activity Physical Exam - General General appearance: in no apparent distress - Head Head exam: normocephalic - Eye Eye exam: Present: PERRL, EOMI - ENT ENT exam: Present: mucous membranes dry - Neck Neck exam: Present: trachea midline - Respiratory Respiratory exam: Present: other (dec bs bilat ). Absent: respiratory distress - Cardiovascular Cardiovascular exam: Present: regular rate, systolic murmur, +S4 - Abdominal Exam Abdominal exam: Present: soft. Absent: tenderness Abdominal tenderness: Present: epigastrium - Extremities Exam Extremities exam: Present: pedal edema. Absent: calf tenderness - Neurological Exam Neurological exam: Present: alert, oriented X3, CN II-XII intact - Psychiatric Psychiatric exam: Present: normal affect - Skin Skin exam: Absent: rash
[2018-04-30 22:13] LABS: Appearance,Urine CLEAR (Clear); Bilirubin,Urine Negative (Negative); Blood, Urine Negative (Negative); Color,Urine YELLOW (Yellow); Glucose,Urine (UA) Negative (Negative); Ketones,Urine Negative (Negative); Leukocyte Esterase,Urine Negative (Negative); Microscopic, Urine URINE MICROSCOPIC (MICROSCOPIC); PH,Urine 5.5 (5.0-8.5); Protein,Urine 2+ (Negative); Urobilinogen,Urine 0.2 EU/dl (0.2)
[2018-04-30 22:34] LABS: Albumin Level 3.5 gm/dL (3.4-5.0); Bilirubin,Direct 0.1 mg/dL (0.0-0.2); Bilirubin,Indirect 0.6 mg/dL (0.0-0.9); Bilirubin,Total 0.7 mg/dL (0.2-1.0); Total Protein,Serum 7.4 gm/dL (6.4-8.2)
--- NOTE | 2018-05-01 06:00 | Progress Note ---
Acute Rapid Response Note - Subjective Date Responded: 05/01/18 Time Responded: 05:15 Provider Note: wf admitted with copd and rt cap - had been doing ok and suddenly had resp distress and dec loc - no chest pain or arrthymia reported - - Objective Findings: Vital Signs - Last 4 Hours Temperature 99.0 F 05/01/18 04:00 Temperature Source Oral 05/01/18 04:00 Pulse Rate 77 05/01/18 04:00 Respiratory Rate 20 05/01/18 04:00 Blood Pressure 149/68 05/01/18 04:00 Blood Pressure Mean 95 05/01/18 04:00 Blood Pressure Source Automatic Cuff 05/01/18 04:00 Blood Pressure Position Supine 05/01/18 04:00 02 Sat by Pulse Oximetry 90 L 05/01/18 04:00 Oxygen Delivery Method 05/01/18 04:00 Oxygen Flow Rate (LPM) 2.5 05/01/18 04:00 Lab Results for Past 12 Hours 04/30/18 22:30: Troponin I < 0.02 04/30/18 22:10: Urine Color Yellow, Urine Appearance Clear, Urine pH 5.5, Ur Specific [place] 1.020, Urine Protein 2+, Urine Glucose (UA) Negative, Urine Ketones Negative, Urine Blood Negative, Urine Nitrate Negative, Urine Bilirubin Negative, Urine Urobilinogen 0.2, Ur Leukocyte Esterase Negative, Urine WBC 3-5 , Ur Squamous Epith Cells 3-5, Ur Renal Epithelial Cell 3-5 04/30/18 21:30: Lactic Acid 1.2 04/30/18 19:05: Total Bilirubin 0.7, Direct Bilirubin 0.1, Indirect Bilirubin 0.6, AST 22, ALT 29, Alkaline Phosphatase 113, Total Protein 7.4, Albumin 3.5, Lipase 175 04/30/18 19:05: B-Natriuretic Peptide 555 H 04/30/18 19:05: Sodium 137, Potassium 4.5, Chloride 103, Carbon Dioxide 27, Anion Gap 11.5, BUN 46 H, Creatinine 2.83 H, Estimated Creat Clear 17, Estimated GFR 16 L*, Est GFR ( Amer) 19 L*, Glucose 192 H, Calcium 8.6, Troponin I < 0.02 04/30/18 19:05: WBC 9.2, RBC 3.84 L, Hgb 11.5 L, Hct 36.7 L, MCV 95.8, MCH 29.9 , MCHC 31.3 L, RDW 13.7, Plt Count 274, MPV 8.7, Neut % (Auto) 72.4, Lymph % ( Auto) 12.1, [place] % (Auto) 5.5, Eos % (Auto) 9.0, Baso % (Auto) 1.1, Neut # (Auto ) 6.7, Lymph # (Auto) 1.1, [place] # (Auto) 0.5, Eos # (Auto) 0.8 H, Baso # (Auto) 0.1 My Orders 3 Category Date Time Status Activity as ordered .AMB HODAN Care 04/30/18 23:40 Active Measure weight DAILY Care 04/30/18 23:40 Active Oxygen, Apply Nasal Cannula 2 lpm Care 04/30/18 23:40 Active Chest XR -- portable [XR chest portable] Stat Exams 05/01/18 05:42 Taken Basic Metabolic Panel AMLAB Lab 05/01/18 05:45 Received Complete Blood Count Auto Diff AMLAB Lab 05/01/18 05:45 Received Finger Stick Blood Glucose ACHS Lab 04/30/18 23:40 Active Lactic Acid Stat Lab 04/30/18 21:30 Completed Magnesium AMLAB Lab 05/01/18 05:45 Received UA [Urinalysis and Microscopic] Stat Lab 04/30/18 22:23 Stop Req 0.9 % Sodium Chloride [Sod Chlor 0.9% 1000mL Bag] 1,000 Med 04/30/18 23:45 Ordered ml IV 50 mls/hr Acetaminophen [Acetaminophen 325mg tab] Med 04/30/18 23:40 Ordered 650 mg PO Q4HP PRN Albuterol Sulfate [Albuterol 0.083% 2.5mg/3mL neb] Med 04/30/18 23:40 Once 2.5 mg IH TID ONE Amlodipine Besylate [Norvasc 10mg tablet] Med 05/01/18 09:00 Ordered 10 mg PO DAILY Aspirin [Aspirin 81mg Enteric Coated Tablet] Med 05/01/18 09:00 Ordered 81 mg PO DAILY Atorvastatin Calcium [Lipitor 40mg Tablet] Med 05/01/18 21:00 Ordered 40 mg PO HS Azithromycin [Zithromax 500mg ADV] 500 mg Med 04/30/18 23:30 Discontinued 0.9 % Sodium Chloride [Sod Chloride 0.9% 250mL Adv] 250 ml IV Q24H Azithromycin [Zithromax 500mg ADV] 500 mg Med 05/01/18 23:30 Ordered 0.9 % Sodium Chloride [Sod Chloride 0.9% 250mL Adv] 250 ml IV Q24H Bethanechol Chloride [Urecholine 10mg tablet] Med 05/01/18 09:00 Ordered 10 mg PO TID Carvedilol [Coreg 25mg Tablet] Med 05/01/18 09:00 Ordered 25 mg PO BID Ceftriaxone Sodium [Rocephin 1gm vial] 1 gm Med 04/30/18 23:30 Discontinued 0.9 % Sodium Chloride [Sod Chlor 0.9% 50mL bag] 50 ml IV Q24H Ceftriaxone Sodium [Rocephin 1gm vial] 1 gm Med 05/01/18 23:30 Ordered 0.9 % Sodium Chloride [Sod Chlor 0.9% 50mL bag] 50 ml IV Q24H Furosemide [Lasix 20mg tablet] Med 05/01/18 09:00 Ordered 20 mg PO DAILY Gabapentin [Neurontin 300mg capsule] Med 05/01/18 09:00 Ordered 300 mg PO BID Hydrocod/Acet 5/325 mg [[place] 5/325mg tablet] Med 04/30/18 23:40 Ordered 1 tab PO BIDP PRN Insulin Lispro [humaLOG 100 units/mL 3mL vial (SSI)] Med 05/01/18 06:00 Ordered See Protocol SQ ACHS Isosorbide Mononitrate [Imdur 60mg ER tablet] Med 05/01/18 09:00 Ordered 60 mg PO BID Linagliptin [Tradjenta] Med 05/01/18 09:00 Ordered 5 mg PO DAILY Omeprazole [Omeprazole 40mg Capsule] Med 05/01/18 09:00 Ordered 40 mg PO DAILY Ondansetron HCl/Pf [Zofran 4mg/2mL vial] Med 04/30/18 23:40 Ordered 4 mg IV Q8HP PRN Sodium Chloride For Inhalation [Sodium Chloride 3% 15mL Med 04/30/18 23:30 Discontinued Neb] 3 ml IH ONCE PRN Trazodone HCl [Desyrel 50mg tablet] Med 04/30/18 23:40 Ordered 50 mg PO HSP PRN Blood Culture Stat Micro 04/30/18 22:23 Stop Req Sputum Culture & Gram Stain Stat Micro 05/01/18 Results Admit Patient; Obs/Outpt Routine Ot 04/30/18 23:40 Ordered Code Status Routine Ot 04/30/18 23:33 Ordered Transfer Order Routine Transfer 04/30/18 23:31 Completed - Radiology Findings #1 Xray Reviewed: Chest Image Reviewed: Yes I reviewed the patient's radiology image ED XR Results: Abnormal (cap-rt and then et tube and ng tube noted ok ) - ECG Data Tracing #1 Attestation EKG: I reviewed this ECG and interpreted as documented below: Arrhythmias present: sinus tach Ischemic changes: non-specific ST-T wave changes Rapid Response Exam - General General appearance: in no apparent distress, obtunded - Head Head exam: normocephalic - Eye Eye exam: Present: PERRL, EOMI. Absent: scleral icterus - ENT ENT exam: Present: mucous membranes moist - Neck Neck exam: Present: trachea midline - Respiratory Respiratory exam: Present: respiratory distress, other (dec bilat bs ) - Cardiovascular Cardiovascular exam: Present: regular rate, systolic murmur - Abdominal Exam Abdominal exam: Present: soft - Extremities Exam Extremities exam: Present: pedal edema. Absent: calf tenderness - Neurological Exam Neurological exam: Present: other (obtunded but no posturing or focal def ) - Skin Skin exam: Present: intact RR Procedures/Assess/Plan - Bedside Intubation Time Out Performed: Yes Sedative: Versed Mg given: 2 Laryngoscope: [place] Tube size: 7.5 Tube uncuffed: No Secured location: teeth Placement confirmation: visualized tube passing through cords, equal breath sounds bilaterally, confirmation by capnometry Patient tolerated procedure intubation: well Intubation Complications: none (1) Acute respiratory failure Current Visit: Yes Status: Acute Assessment and Plan: will need to intubate pt as resp acidosis on abg -
[2018-05-01 06:12] LABS: Anion Gap 13.9 mEq/L (5-15); Potassium 4.9 mmoL/L (3.5-5.1)
[2018-05-01 06:17] LABS: White Blood Count 16.4 K/mm3 (4.8-10.8)
[2018-05-01 06:18] LABS: Basophils % 0.6 % (0.1-2.0); Eosinophils % 4.9 % (0.1-12.0); Hematocrit 35.9 % (37.0-47.0); Lymphocytes % 5.6 K/mm3 (10-50); Mean Corpuscular HGB Conc 30.7 g/dL (31.8-35.4); Mean Corpuscular Volume 97.6 fl (81-99); Mean Platelet Volume 9.5 fl (7.4-10.4); Monocytes % 4.7 % (1.7-9.3); Neutrophils % 82.9 % (37.0-80.0); Platelet Count 277 K/mm3 (142-424); Red Blood Count 3.68 M/mm3 (4.20-5.40); Red Cell Distribution Width 13.7 % (11.5-17.5)
[2018-05-01 06:19] LABS: Basophils # 0.1 K/mm3 (0-0.2); Eosinophils # 0.8 K/mm3 (0.0-0.4); Lymphocytes # 0.9 K/mm3 (0.7-4.5); Monocytes # 0.8 K/mm3 (0.1-1.0); Neutrophils # 13.6 K/mm3 (1.8-7.8)
[2018-05-01 06:42] LABS: Eosinophils % 1 % (0-3); Lymphocytes % 6 % (10-50); Monocytes % 4 % (2-9); Neutrophils % 87 % (42-76); Total Cells Counted 100
[2018-05-01 07:06] LABS: ABG Base Excess -1.3 mmol/L (-2.4-2.3); ABG HCO3 24.3 mmhg (22.0-26.0); ABG Oxygen Saturation 99 % (90-100); ABG PCO2 45.1 mmhg (35.0-45.0); ABG PH 7.35 mmol/L (7.35-7.45); ABG PO2 215.6 mmhg (80-100); ABG TCO2 25.7 mmhg (23-27)
[2018-05-01 07:09] LABS: Allen's Test Patient Unable; Oxygen 100 %; PEEP 5; Tidal Volume 400
[2018-05-01 07:11] LABS: ABG Base Excess -2.1 mmol/L (-2.4-2.3); ABG Oxygen Saturation 98 % (90-100); ABG PO2 158.7 mmhg (80-100)
[2018-05-01 07:12] LABS: Allen's Test Patient Unable; Oxygen 100 AMBU %
[2018-05-01 07:13] LABS: ABG PCO2 98.7 mmhg (35.0-45.0); ABG PH 7.07 mmol/L (7.35-7.45)
--- NOTE | 2018-05-01 07:59 | History & Physical Report ---
*Admission Date: 05/01/18 *Chief complaint: Shortness of air/cough *History of present illness: 78-year-old white female with multiple medical problems including chronic COPD/ emphysema, history of repetitive pneumonias and renal insufficiency-follows with Dr. Tenzin Ware-who was admitted through the emergency department late last night with cough and congestion with a diagnosis of COPD exacerbation and community acquired pneumonia and placed on Rocephin and azithromycin. Early this morning she was being bathed by her nursing staff and set up on the side of the bed and suddenly had a syncopal episode with significant respiratory distress, gasping and ineffective respirations. Blood gas showed significant acidosis, leukocytosis was noted. Patient's x-ray worsened with significant pulmonary infiltrates and she was intubated by on- call physician successfully. Patient's blood gas normalized, and patient is now intubated and sedated in the intensive care unit. History and other documentation below is from her family whom I spent a significant amount of time with this morning [facility] History I have reviewed the patient's past medical history: Yes Medical History: Reports:: Aneurysm (abdominal), Atherosclerotic Heart Disease, Carotid Stenosis, Congestive Heart Failure, Chronic Obstructive Pulmonary Disease (COPD), Congenital Heart Disease, Coronary Artery Disease, Diabetes Mellitus Type 2, Gastroesophageal Reflux Disease(GERD), Heart Murmur, Home Oxygen, Hyperlipidemia, Hypertension, Lung Disease (COPD, O2 AT5 HOME HAS NOT USED IN WEEKS), MRSA, Peripheral Vascular Disease, Renal Insufficiency Denies:: Cancer, Diabetes Mellitus Type 1, Internal Pacemaker, Seizures Other Medical History: Reports: Cataracts. Denies: Blood Transfusion Reaction Other Surgeries: Yes: Colonoscopy, Coronary Stent, Hysterectomy-Partial. No: Pacemaker Amputation: No Fractures: No - *Social History Educational Level: Attended High School Smoking Status: Former smoker Tobacco Type: cigarettes # Packs/Day (cigarettes): 1 #Yrs smoked (if former smoker): 30 Alcohol Intake: never Occupational Status: disabled Housing: house - Psychiatric History Expresses thoughts of harming self/others: None Suicide Plan Description: No Plan *Family Hx:: Hypertension, Kidney Disease, Stroke Review of Systems - Review of Systems Review of systems:: unable to obtain, other, pertinent systems reviewed and negative unless documented below History as above from nursing staff. Review of systems unobtainable. - *Neurologic Denies seizure-like activity Meds Home Medications Medication Instructions Recorded Confirmed Type Albuterol Sulfate [Proair Hfa 2 puffs IH Q4-6H PRN 12/01/17 05/01/18 History 90mcg/puff Inh] Amlodipine Besylate [Amlodipine 10 mg PO DAILY 12/01/17 05/01/18 History 10mg Tab] Atorvastatin Calcium [Atorvastatin 40 mg PO HS 12/01/17 05/01/18 History 40mg Tab] Carvedilol [Carvedilol 25mg Tab] 25 mg PO BID 12/01/17 05/01/18 History Ergocalciferol (Vitamin D2) 50,000 unit PO WEEKLY 12/01/17 05/01/18 History [Vitamin D] Furosemide [Lasix 20mg tablet] 20 mg PO DAILY 12/01/17 05/01/18 History Gabapentin [Gabapentin 300mg Cap] 300 mg PO BID 12/01/17 05/01/18 History Insulin Glargine,Hum.rec.anlog 45 unit PO DAILY 12/01/17 05/01/18 History [Lantus Insulin 100units/mL 10mL vial] Isosorbide Mononitrate [Imdur 60mg 60 mg PO BID 12/01/17 05/01/18 History ER tablet] Linagliptin [Tradjenta] 5 mg PO DAILY 12/01/17 05/01/18 History Aspirin [Adult Low Dose Aspirin EC] 81 mg PO DAILY 01/11/18 05/01/18 History Budesonide/Formoterol Fumarate 2 puff IH BID 01/11/18 04/30/18 History [Symbicort 160-4.5 Mcg Inhaler] Ferrous Sulfate 325 mg PO DAILY 01/11/18 05/01/18 History Hydrocodone/Acetaminophen 1 each PO BIDP PRN 01/11/18 05/01/18 History [Hydrocodone-Acetamin 5-325 mg] Trazodone HCl 50 mg PO HSP PRN 01/11/18 05/01/18 History Bethanechol Chloride [Urecholine 10 mg PO TID 03/23/18 05/01/18 History 10mg tablet] Omeprazole [Omeprazole 40mg 40 mg PO DAILY 03/23/18 05/01/18 History Capsule] predniSONE [Deltasone 10mg tablet] 10 mg PO DAILY 04/30/18 04/30/18 History Allergies Allergy/AdvReac Type Severity Reaction Status Date / Time No Known Allergies Allergy Verified 12/01/17 10:10 Exam Vital signs and Labs for Last 24 Hours: Temp Pulse Resp BP Pulse Ox 99 F 71 19 136/49 96 05/01/18 06:00 05/01/18 07:30 05/01/18 07:30 05/01/18 07:30 05/01/18 07:30 Laboratory Results - last 24 hr 04/30/18 19:05: WBC 9.2, RBC 3.84 L, Hgb 11.5 L, Hct 36.7 L, MCV 95.8, MCH 29.9 , MCHC 31.3 L, RDW 13.7, Plt Count 274, MPV 8.7, Neut % (Auto) 72.4, Lymph % ( Auto) 12.1, [place] % (Auto) 5.5, Eos % (Auto) 9.0, Baso % (Auto) 1.1, Neut # (Auto ) 6.7, Lymph # (Auto) 1.1, [place] # (Auto) 0.5, Eos # (Auto) 0.8 H, Baso # (Auto) 0.1 04/30/18 19:05: Sodium 137, Potassium 4.5, Chloride 103, Carbon Dioxide 27, Anion Gap 11.5, BUN 46 H, Creatinine 2.83 H, Estimated Creat Clear 17, Estimated GFR 16 L*, Est GFR ( Amer) 19 L*, Glucose 192 H, Calcium 8.6, Troponin I < 0.02 04/30/18 19:05: B-Natriuretic Peptide 555 H 04/30/18 19:05: Total Bilirubin 0.7, Direct Bilirubin 0.1, Indirect Bilirubin 0.6, AST 22, ALT 29, Alkaline Phosphatase 113, Total Protein 7.4, Albumin 3.5, Lipase 175 04/30/18 21:30: Lactic Acid 1.2 04/30/18 22:10: Urine Color Yellow, Urine Appearance Clear, Urine pH 5.5, Ur Specific [place] 1.020, Urine Protein 2+, Urine Glucose (UA) Negative, Urine Ketones Negative, Urine Blood Negative, Urine Nitrate Negative, Urine Bilirubin Negative, Urine Urobilinogen 0.2, Ur Leukocyte Esterase Negative, Urine WBC 3-5 , Ur Squamous Epith Cells 3-5, Ur Renal Epithelial Cell 3-5 04/30/18 22:30: Troponin I < 0.02 05/01/18 05:15: Specimen Source Left radial, O2 % 100 ambu, ABG pH 7.07 L*, ABG pCO2 98.7 H, ABG pO2 158.7 H, ABG HCO3 28.0 H, ABG Total CO2 31.0 H, ABG O2 Saturation 98, ABG Base Excess -2.1, Tommy Test Patient unable 05/01/18 05:20: Urine Color Yellow, Urine Appearance Sl cloudy, Urine pH 5.5, Ur Specific [place] 1.020, Urine Protein 2+, Urine Glucose (UA) Negative, Urine Ketones Negative, Urine Blood Trace-l, Urine Nitrate Negative, Urine Bilirubin Negative, Urine Urobilinogen 0.2, Ur Leukocyte Esterase Negative, Urine RBC Occasional, Urine WBC Occasional, Ur Squamous Epith Cells 3-5, Urine Bacteria 2 + A 05/01/18 05:45: WBC 16.4 H D, RBC 3.68 L, Hgb 11.0 L, Hct 35.9 L, MCV 97.6, MCH 30.0, MCHC 30.7 L, RDW 13.7, Plt Count 277, MPV 9.5, Neut % (Auto) 82.9 H, Lymph % (Auto) 5.6 L, [place] % (Auto) 4.7, Eos % (Auto) 4.9, Baso % (Auto) 0.6, Neut # (Auto) 13.6 H, Lymph # (Auto) 0.9, [place] # (Auto) 0.8, Eos # (Auto) 0.8 H , Baso # (Auto) 0.1, Total Counted 100, Neutrophils % (Manual) 87 H, Band Neutrophils % 2.0, Lymphocytes % (Manual) 6 L, Monocytes % (Manual) 4, Eosinophils % (Manual) 1, Platelet Estimate Normal, Acanthocytes (Spur) 1+ 05/01/18 05:45: Sodium 140, Potassium 4.9, Chloride 105, Carbon Dioxide 26, Anion Gap 13.9, BUN 45 H, Creatinine 2.83 H, Estimated Creat Clear 17, Estimated GFR 16 L*, Est GFR ( Amer) 19 L*, Glucose 168 H, Calcium 8.0 L , Magnesium 2.1 05/01/18 06:20: POC Glucose 160 H 05/01/18 06:50: Specimen Source Right radial, O2 % 100, ABG pH 7.35, ABG pCO2 45.1 H, ABG pO2 215.6 H, ABG HCO3 24.3, ABG Total CO2 25.7, ABG O2 Saturation 99 , ABG Base Excess -1.3, Tommy Test Patient unable, Vent Rate 16, Tidal Volume 400, PEEP 5 I & O for Last 24 hours: Intake & Output 04/28/18 04/29/18 04/30/18 05/01/18 11:59 11:59 11:59 11:59 Intake Total 473 / 473 Output Total 600 / 600 Balance -127 / -127 Weight 149 lb 1 oz Microbiology Reports for the Last 24 Hours: Microbiology 05/01/18 Unknown Sputum - Expectorated Sputum Gram Stain - Final Narrative: Patient is minimally sedated on a propofol drip, low-dose. She is able to respond to verbal stimuli and will turn her head when her name is spoken. Her pupils are reactive and brisk, but the left pupil is 1 mm smaller. (her family reports she has had cataract surgery) No other asymmetry of her facial nerves are noted. Lungs have rhonchi and wheezing in all lung rabago. Ventilator sounds noted. Heart rate regular but difficult exam because of her ventilated status and lung noises. Abdomen soft. Extremities have good perfusion, warm. She is moving her extremities spontaneously. No swelling in the feet. No cord formation. H&P: Result - Labs Labs: Short CBC 04/30/18 05/01/18 Range/Units 19:05 05:45 WBC 9.2 16.4 H D (4.8-10.8) K/mm3 Hgb 11.5 L 11.0 L (12.2-16.2) g/dL Hct 36.7 L 35.9 L (37.0-47.0) % Plt Count 274 277 (142-424) K/mm3 BMP 04/30/18 05/01/18 19:05 05:45 Sodium 137 140 Potassium 4.5 4.9 Chloride 103 105 Carbon Dioxide 27 26 BUN 46 H 45 H Creatinine 2.83 H 2.83 H Glucose 192 H 168 H Calcium 8.6 8.0 L Cardiac Enzymes 04/30/18 04/30/18 Range/Units 19:05 22:30 Troponin I < 0.02 < 0.02 (0.00-0.06) ng/ml Liver Function 04/30/18 Range/Units 19:05 Total Bilirubin 0.7 (0.2-1.0) mg/dL Direct Bilirubin 0.1 (0.0-0.2) mg/dL AST 22 (15-37) U/L ALT 29 (12-78) U/L Alkaline Phosphatase 113 (46-116) U/L Albumin 3.5 (3.4-5.0) gm/dL Urine 04/30/18 05/01/18 Range/Units 22:10 05:20 Urine Color Yellow Yellow (Yellow) Urine Appearance Clear Sl cloudy (Clear) Urine pH 5.5 5.5 (5.0-8.5) Ur Specific [place] 1.020 1.020 (1.005-1.030) Urine Protein 2+ 2+ (Negative) Urine Glucose (UA) Negative Negative (Negative) Assessment and Plan (1) Acute respiratory failure Current visit: Yes Status: Acute Category: Medical Code(s): J96.00 - Acute respiratory failure, unspecified whether with hypoxia or hypercapnia (2) Mental status change Current visit: Yes Status: Acute Category: Medical Code(s): R41.82 - Altered mental status, unspecified Probably from hypoxia. CT scan of head without contrast this morning. Patient seems fairly alert given her minimal sedation and current intubated status. (3) Community acquired pneumonia Current visit: Yes Status: Acute Qualifiers: Laterality: right Lung location: lower lobe of lung Qualified Code(s): J18.1 - Lobar pneumonia, unspecified organism Category: Medical Code(s): J18.9 - Pneumonia, unspecified organism Significant pneumonia. Add clindamycin for aspiration coverage. Gram stain from intubation reveals gram-positive diplococci. Await sensitivities. Blood cultures pending. (4) COPD with respiratory failure, acute Current visit: No Status: Acute Category: Medical Code(s): J96.00 - Acute respiratory failure, unspecified whether with hypoxia or hypercapnia; J44.9 - Chronic obstructive pulmonary disease, unspecified Appropriately intubated and ventilated at this point. Check d-dimer. If elevated will give treatment dose Lovenox and check VQ scan and Dopplers of legs. Plan will be to rest lungs on the ventilator today. If improves would consider transition to BiPAP tomorrow. (5) Chronic renal failure Current visit: No Status: Acute Category: Medical Code(s): N18.9 - Chronic kidney disease, unspecified This appears to be patient's baseline. Cautious administration of medications. (6) On mechanically assisted ventilation Current visit: Yes Status: Acute Category: Medical Code(s): Z99.11 - Dependence on respirator [ventilator] status Ventilator settings reviewed. No change at this point. Ventilator management ongoing. - Assessment and plan all Dx Assessment and Plan for all problems:: Please note 2 hours of critical care time for the day. Please note ventilator management.
--- NOTE | 2018-05-01 11:26 | Pharmacy Consult Notes ---
[facility] Pharmacy Heparin Dosing - Demographic Data Admission date:: 05/01/18 (T) Date: 05/01/18 Time: 11:24 Allergies/Adverse Reactions: Allergies Allergy/AdvReac Type Severity Reaction Status Date / Time No Known Allergies Allergy Verified 12/01/17 10:10 Height: 1.57 m Weight: 67 kg - Indication Medication therapy:: Heparin Patient Problems: Current Active Problems Chronic renal disease (Acute) Community acquired pneumonia (Acute) Acute respiratory failure (Acute) Mental status change (Acute) On mechanically assisted ventilation (Acute) Anemia of chronic disease (Acute) Elevated d-dimer (Acute) CVA?: No Bleeding problem?: No Kidney disease?: No DC?: No Desired PTT range:: 60-80 seconds Comments:: POSSIBLE PE, POOR RENAL FUNCTION - Labs Anticoagulation Lab Results:: 04/30/18 05/01/18 19:05 05:45 Hgb 11.5 L 11.0 L Hct 36.7 L 35.9 L Plt Count 274 277 - Monitoring Dose Monitor 1 Date: 05/01/18 Time: 11:25 PTT Result:: 30.4 Infusion Rate:: 1200 UNITS/HR, 5000 UNIT BOLUS Dose Monitor 2 Date: 05/01/18 Time: 18:56 PTT Result:: 125.6 Infusion Rate:: hold restart at 2100 at 900 units/hr Dose Monitor 3 Date: 05/02/18 Time: 03:00 PTT Result:: 50.2 Infusion Rate:: 950 units/hr Dose Monitor 4 Date: 05/02/18 Time: 09:30 PTT Result:: 48.5 Infusion Rate:: 1050 units/hr Dose Monitor 5 Date: 05/02/18 Time: 16:30 PTT Result:: 49.2 Infusion Rate:: 1125 units/hr Dose Monitor 6 Date: 05/02/18 Time: 23:30 PTT Result:: 57.8 Infusion Rate:: 1175 units/hr Dose Monitor 7 Date: 05/03/18 Time: 05:50 PTT Result:: 73.2 Infusion Rate:: 1150 units/hr Dose Monitor 8 Date: 05/03/18 Time: 15:00 PTT Result:: 66.5 Infusion Rate:: 1150 units/hr Comment:: heparin drip stopped at 1724 today - Core Measures Is INR > or = 2 at discharge?: No Most Recent Labs:: Laboratory Results - last 24 hr 04/30/18 19:05: WBC 9.2, RBC 3.84 L, Hgb 11.5 L, Hct 36.7 L, MCV 95.8, MCH 29.9 , MCHC 31.3 L, RDW 13.7, Plt Count 274, MPV 8.7, Neut % (Auto) 72.4, Lymph % ( Auto) 12.1, [place] % (Auto) 5.5, Eos % (Auto) 9.0, Baso % (Auto) 1.1, Neut # (Auto ) 6.7, Lymph # (Auto) 1.1, [place] # (Auto) 0.5, Eos # (Auto) 0.8 H, Baso # (Auto) 0.1 04/30/18 19:05: Sodium 137, Potassium 4.5, Chloride 103, Carbon Dioxide 27, Anion Gap 11.5, BUN 46 H, Creatinine 2.83 H, Estimated Creat Clear 17, Estimated GFR 16 L*, Est GFR ( Amer) 19 L*, Glucose 192 H, Calcium 8.6, Troponin I < 0.02 04/30/18 19:05: B-Natriuretic Peptide 555 H 04/30/18 19:05: Total Bilirubin 0.7, Direct Bilirubin 0.1, Indirect Bilirubin 0.6, AST 22, ALT 29, Alkaline Phosphatase 113, Total Protein 7.4, Albumin 3.5, Lipase 175 04/30/18 21:30: Lactic Acid 1.2 04/30/18 22:10: Urine Color Yellow, Urine Appearance Clear, Urine pH 5.5, Ur Specific [place] 1.020, Urine Protein 2+, Urine Glucose (UA) Negative, Urine Ketones Negative, Urine Blood Negative, Urine Nitrate Negative, Urine Bilirubin Negative, Urine Urobilinogen 0.2, Ur Leukocyte Esterase Negative, Urine WBC 3-5 , Ur Squamous Epith Cells 3-5, Ur Renal Epithelial Cell 3-5 04/30/18 22:30: Troponin I < 0.02 05/01/18 05:15: Specimen Source Left radial, O2 % 100 ambu, ABG pH 7.07 L*, ABG pCO2 98.7 H, ABG pO2 158.7 H, ABG HCO3 28.0 H, ABG Total CO2 31.0 H, ABG O2 Saturation 98, ABG Base Excess -2.1, Tommy Test Patient unable 05/01/18 05:20: Urine Color Yellow, Urine Appearance Sl cloudy, Urine pH 5.5, Ur Specific [place] 1.020, Urine Protein 2+, Urine Glucose (UA) Negative, Urine Ketones Negative, Urine Blood Trace-l, Urine Nitrate Negative, Urine Bilirubin Negative, Urine Urobilinogen 0.2, Ur Leukocyte Esterase Negative, Urine RBC Occasional, Urine WBC Occasional, Ur Squamous Epith Cells 3-5, Urine Bacteria 2 + A 05/01/18 05:45: WBC 16.4 H D, RBC 3.68 L, Hgb 11.0 L, Hct 35.9 L, MCV 97.6, MCH 30.0, MCHC 30.7 L, RDW 13.7, Plt Count 277, MPV 9.5, Neut % (Auto) 82.9 H, Lymph % (Auto) 5.6 L, [place] % (Auto) 4.7, Eos % (Auto) 4.9, Baso % (Auto) 0.6, Neut # (Auto) 13.6 H, Lymph # (Auto) 0.9, [place] # (Auto) 0.8, Eos # (Auto) 0.8 H , Baso # (Auto) 0.1, Total Counted 100, Neutrophils % (Manual) 87 H, Band Neutrophils % 2.0, Lymphocytes % (Manual) 6 L, Monocytes % (Manual) 4, Eosinophils % (Manual) 1, Platelet Estimate Normal, Acanthocytes (Spur) 1+ 05/01/18 05:45: Sodium 140, Potassium 4.9, Chloride 105, Carbon Dioxide 26, Anion Gap 13.9, BUN 45 H, Creatinine 2.83 H, Estimated Creat Clear 17, Estimated GFR 16 L*, Est GFR ( Amer) 19 L*, Glucose 168 H, Calcium 8.0 L , Magnesium 2.1 05/01/18 05:45: D-Dimer 2370 H* 05/01/18 06:20: POC Glucose 160 H 05/01/18 06:50: Specimen Source Right radial, O2 % 100, ABG pH 7.35, ABG pCO2 45.1 H, ABG pO2 215.6 H, ABG HCO3 24.3, ABG Total CO2 25.7, ABG O2 Saturation 99 , ABG Base Excess -1.3, Tommy Test Patient unable, Vent Rate 16, Tidal Volume 400, PEEP 5 Were Heparin and Warfarin started on the same day?: No If not, why?: heparin stopped no PE indicated at this time
--- NOTE | 2018-05-01 14:59 | Consult Report ---
*Admission Date: 05/01/18 (T) *Chief complaint: The patient needs a triple-lumen catheter for improved venous access *History of present illness: This is a 78-year-old lady in need of central venous catheter for improved access. Please see her history of present illness below as copied from her admission H&P. 78-year-old white female with multiple medical problems including chronic COPD/ emphysema, history of repetitive pneumonias and renal insufficiency-follows with Dr. Tenzin Ware-who was admitted through the emergency department late last night with cough and congestion with a diagnosis of COPD exacerbation and community acquired pneumonia and placed on Rocephin and azithromycin. Early this morning she was being bathed by her nursing staff and set up on the side of the bed and suddenly had a syncopal episode with significant respiratory distress, gasping and ineffective respirations. Blood gas showed significant acidosis, leukocytosis was noted. Patient's x-ray worsened with significant pulmonary infiltrates and she was intubated by on- call physician successfully. Patient's blood gas normalized, and patient is now intubated and sedated in the intensive care unit. History and other documentation below is from her family whom I spent a significant amount of time with this morning Review of Systems - *Neurologic Denies seizure-like activity [facility] History Medical History: Reports:: Aneurysm (abdominal), Atherosclerotic Heart Disease, Carotid Stenosis, Congestive Heart Failure, Chronic Obstructive Pulmonary Disease (COPD), Congenital Heart Disease, Coronary Artery Disease, Diabetes Mellitus Type 2, Gastroesophageal Reflux Disease(GERD), Heart Murmur, Home Oxygen, Hyperlipidemia, Hypertension, Lung Disease (COPD, O2 AT5 HOME HAS NOT USED IN WEEKS), MRSA, Peripheral Vascular Disease, Renal Insufficiency Denies:: Cancer, Diabetes Mellitus Type 1, Internal Pacemaker, Seizures Other Medical History: Reports: Cataracts. Denies: Blood Transfusion Reaction Other Surgeries: Yes: Colonoscopy, Coronary Stent, Hysterectomy-Partial. No: Pacemaker Amputation: No Fractures: No - *Social History Educational Level: Attended High School Smoking Status: Former smoker Tobacco Type: cigarettes # Packs/Day (cigarettes): 1 #Yrs smoked (if former smoker): 30 Alcohol Intake: never Occupational Status: disabled Housing: house - Psychiatric History Expresses thoughts of harming self/others: None Suicide Plan Description: No Plan *Family Hx:: Hypertension, Kidney Disease, Stroke Meds Home Medications Medication Instructions Recorded Confirmed Type Albuterol Sulfate [Proair Hfa 2 puffs IH Q4-6H PRN 12/01/17 05/01/18 History 90mcg/puff Inh] Amlodipine Besylate [Amlodipine 10 mg PO DAILY 12/01/17 05/01/18 History 10mg Tab] Atorvastatin Calcium [Atorvastatin 40 mg PO HS 12/01/17 05/01/18 History 40mg Tab] Carvedilol [Carvedilol 25mg Tab] 25 mg PO BID 12/01/17 05/01/18 History Ergocalciferol (Vitamin D2) 50,000 unit PO WEEKLY 12/01/17 05/01/18 History [Vitamin D] Furosemide [Lasix 20mg tablet] 20 mg PO DAILY 12/01/17 05/01/18 History Gabapentin [Gabapentin 300mg Cap] 300 mg PO BID 12/01/17 05/01/18 History Insulin Glargine,Hum.rec.anlog 45 unit PO DAILY 12/01/17 05/01/18 History [Lantus Insulin 100units/mL 10mL vial] Isosorbide Mononitrate [Imdur 60mg 60 mg PO BID 12/01/17 05/01/18 History ER tablet] Linagliptin [Tradjenta] 5 mg PO DAILY 12/01/17 05/01/18 History Aspirin [Adult Low Dose Aspirin EC] 81 mg PO DAILY 01/11/18 05/01/18 History Budesonide/Formoterol Fumarate 2 puff IH BID 01/11/18 04/30/18 History [Symbicort 160-4.5 Mcg Inhaler] Ferrous Sulfate 325 mg PO DAILY 01/11/18 05/01/18 History Hydrocodone/Acetaminophen 1 each PO BIDP PRN 01/11/18 05/01/18 History [Hydrocodone-Acetamin 5-325 mg] Trazodone HCl 50 mg PO HSP PRN 01/11/18 05/01/18 History Bethanechol Chloride [Urecholine 10 mg PO TID 03/23/18 05/01/18 History 10mg tablet] Omeprazole [Omeprazole 40mg 40 mg PO DAILY 03/23/18 05/01/18 History Capsule] predniSONE [Deltasone 10mg tablet] 10 mg PO DAILY 04/30/18 04/30/18 History Allergies Allergy/AdvReac Type Severity Reaction Status Date / Time No Known Allergies Allergy Verified 12/01/17 10:10 Exam Vital signs and Labs for Last 24 Hours: Temp Pulse Resp BP Pulse Ox 99.3 F 73 16 137/56 95 05/01/18 13:00 05/01/18 13:00 05/01/18 13:00 05/01/18 13:00 05/01/18 13:00 Laboratory Results - last 24 hr 04/30/18 19:05: WBC 9.2, RBC 3.84 L, Hgb 11.5 L, Hct 36.7 L, MCV 95.8, MCH 29.9 , MCHC 31.3 L, RDW 13.7, Plt Count 274, MPV 8.7, Neut % (Auto) 72.4, Lymph % ( Auto) 12.1, [place] % (Auto) 5.5, Eos % (Auto) 9.0, Baso % (Auto) 1.1, Neut # (Auto ) 6.7, Lymph # (Auto) 1.1, [place] # (Auto) 0.5, Eos # (Auto) 0.8 H, Baso # (Auto) 0.1 04/30/18 19:05: Sodium 137, Potassium 4.5, Chloride 103, Carbon Dioxide 27, Anion Gap 11.5, BUN 46 H, Creatinine 2.83 H, Estimated Creat Clear 17, Estimated GFR 16 L*, Est GFR ( Amer) 19 L*, Glucose 192 H, Calcium 8.6, Troponin I < 0.02 04/30/18 19:05: B-Natriuretic Peptide 555 H 04/30/18 19:05: Total Bilirubin 0.7, Direct Bilirubin 0.1, Indirect Bilirubin 0.6, AST 22, ALT 29, Alkaline Phosphatase 113, Total Protein 7.4, Albumin 3.5, Lipase 175 04/30/18 21:30: Lactic Acid 1.2 04/30/18 22:10: Urine Color Yellow, Urine Appearance Clear, Urine pH 5.5, Ur Specific [place] 1.020, Urine Protein 2+, Urine Glucose (UA) Negative, Urine Ketones Negative, Urine Blood Negative, Urine Nitrate Negative, Urine Bilirubin Negative, Urine Urobilinogen 0.2, Ur Leukocyte Esterase Negative, Urine WBC 3-5 , Ur Squamous Epith Cells 3-5, Ur Renal Epithelial Cell 3-5 06/22/18 22:30: Troponin I < 0.02 05/01/18 05:15: Specimen Source Left radial, O2 % 100 ambu, ABG pH 7.07 L*, ABG pCO2 98.7 H, ABG pO2 158.7 H, ABG HCO3 28.0 H, ABG Total CO2 31.0 H, ABG O2 Saturation 98, ABG Base Excess -2.1, Tommy Test Patient unable 05/01/18 05:20: Urine Color Yellow, Urine Appearance Sl cloudy, Urine pH 5.5, Ur Specific [place] 1.020, Urine Protein 2+, Urine Glucose (UA) Negative, Urine Ketones Negative, Urine Blood Trace-l, Urine Nitrate Negative, Urine Bilirubin Negative, Urine Urobilinogen 0.2, Ur Leukocyte Esterase Negative, Urine RBC Occasional, Urine WBC Occasional, Ur Squamous Epith Cells 3-5, Urine Bacteria 2 + A 05/01/18 05:45: WBC 16.4 H D, RBC 3.68 L, Hgb 11.0 L, Hct 35.9 L, MCV 97.6, MCH 30.0, MCHC 30.7 L, RDW 13.7, Plt Count 277, MPV 9.5, Neut % (Auto) 82.9 H, Lymph % (Auto) 5.6 L, [place] % (Auto) 4.7, Eos % (Auto) 4.9, Baso % (Auto) 0.6, Neut # (Auto) 13.6 H, Lymph # (Auto) 0.9, [place] # (Auto) 0.8, Eos # (Auto) 0.8 H , Baso # (Auto) 0.1, Total Counted 100, Neutrophils % (Manual) 87 H, Band Neutrophils % 2.0, Lymphocytes % (Manual) 6 L, Monocytes % (Manual) 4, Eosinophils % (Manual) 1, Platelet Estimate Normal, Acanthocytes (Spur) 1+ 05/01/18 05:45: Sodium 140, Potassium 4.9, Chloride 105, Carbon Dioxide 26, Anion Gap 13.9, BUN 45 H, Creatinine 2.83 H, Estimated Creat Clear 17, Estimated GFR 16 L*, Est GFR ( Amer) 19 L*, Glucose 168 H, Calcium 8.0 L , Magnesium 2.1 05/01/18 05:45: D-Dimer 2370 H* 05/01/18 06:20: POC Glucose 160 H 05/01/18 06:50: Specimen Source Right radial, O2 % 100, ABG pH 7.35, ABG pCO2 45.1 H, ABG pO2 215.6 H, ABG HCO3 24.3, ABG Total CO2 25.7, ABG O2 Saturation 99 , ABG Base Excess -1.3, Tommy Test Patient unable, Vent Rate 16, Tidal Volume 400, PEEP 5 05/01/18 11:10: APTT 30.4 I & O for Last 24 hours: Intake & Output 04/29/18 04/30/18 05/01/18 05/02/18 11:59 11:59 11:59 11:59 Intake Total 670 / 670 227 / 227 Output Total 1025 / 1025 200 / 200 Balance -355 / -355 Weight 147 lb 11.355 oz Microbiology Reports for the Last 24 Hours: Microbiology 05/01/18 06:00 Sputum - Endotracheal Tube Aspirate Gram Stain - Final 05/01/18 Unknown Sputum - Expectorated Sputum Gram Stain - Final - Constitutional no acute distress Comments: intubated and sedated Results - Labs 05/01/18 05:45 05/01/18 05:45 Laboratory Results - last 24 hr 04/30/18 19:05: WBC 9.2, RBC 3.84 L, Hgb 11.5 L, Hct 36.7 L, MCV 95.8, MCH 29.9 , MCHC 31.3 L, RDW 13.7, Plt Count 274, MPV 8.7, Neut % (Auto) 72.4, Lymph % ( Auto) 12.1, [place] % (Auto) 5.5, Eos % (Auto) 9.0, Baso % (Auto) 1.1, Neut # (Auto ) 6.7, Lymph # (Auto) 1.1, [place] # (Auto) 0.5, Eos # (Auto) 0.8 H, Baso # (Auto) 0.1 04/30/18 19:05: Sodium 137, Potassium 4.5, Chloride 103, Carbon Dioxide 27, Anion Gap 11.5, BUN 46 H, Creatinine 2.83 H, Estimated Creat Clear 17, Estimated GFR 16 L*, Est GFR ( Amer) 19 L*, Glucose 192 H, Calcium 8.6, Troponin I < 0.02 04/30/18 19:05: B-Natriuretic Peptide 555 H 04/30/18 19:05: Total Bilirubin 0.7, Direct Bilirubin 0.1, Indirect Bilirubin 0.6, AST 22, ALT 29, Alkaline Phosphatase 113, Total Protein 7.4, Albumin 3.5, Lipase 175 04/30/18 21:30: Lactic Acid 1.2 04/30/18 22:10: Urine Color Yellow, Urine Appearance Clear, Urine pH 5.5, Ur Specific [place] 1.020, Urine Protein 2+, Urine Glucose (UA) Negative, Urine Ketones Negative, Urine Blood Negative, Urine Nitrate Negative, Urine Bilirubin Negative, Urine Urobilinogen 0.2, Ur Leukocyte Esterase Negative, Urine WBC 3-5 , Ur Squamous Epith Cells 3-5, Ur Renal Epithelial Cell 3-5 04/30/18 22:30: Troponin I < 0.02 05/01/18 05:15: Specimen Source Left radial, O2 % 100 ambu, ABG pH 7.07 L*, ABG pCO2 98.7 H, ABG pO2 158.7 H, ABG HCO3 28.0 H, ABG Total CO2 31.0 H, ABG O2 Saturation 98, ABG Base Excess -2.1, Tommy Test Patient unable 05/01/18 05:20: Urine Color Yellow, Urine Appearance Sl cloudy, Urine pH 5.5, Ur Specific [place] 1.020, Urine Protein 2+, Urine Glucose (UA) Negative, Urine Ketones Negative, Urine Blood Trace-l, Urine Nitrate Negative, Urine Bilirubin Negative, Urine Urobilinogen 0.2, Ur Leukocyte Esterase Negative, Urine RBC Occasional, Urine WBC Occasional, Ur Squamous Epith Cells 3-5, Urine Bacteria 2 + A 05/01/18 05:45: WBC 16.4 H D, RBC 3.68 L, Hgb 11.0 L, Hct 35.9 L, MCV 97.6, MCH 30.0, MCHC 30.7 L, RDW 13.7, Plt Count 277, MPV 9.5, Neut % (Auto) 82.9 H, Lymph % (Auto) 5.6 L, [place] % (Auto) 4.7, Eos % (Auto) 4.9, Baso % (Auto) 0.6, Neut # (Auto) 13.6 H, Lymph # (Auto) 0.9, [place] # (Auto) 0.8, Eos # (Auto) 0.8 H , Baso # (Auto) 0.1, Total Counted 100, Neutrophils % (Manual) 87 H, Band Neutrophils % 2.0, Lymphocytes % (Manual) 6 L, Monocytes % (Manual) 4, Eosinophils % (Manual) 1, Platelet Estimate Normal, Acanthocytes (Spur) 1+ 05/01/18 05:45: Sodium 140, Potassium 4.9, Chloride 105, Carbon Dioxide 26, Anion Gap 13.9, BUN 45 H, Creatinine 2.83 H, Estimated Creat Clear 17, Estimated GFR 16 L*, Est GFR ( Amer) 19 L*, Glucose 168 H, Calcium 8.0 L , Magnesium 2.1 05/01/18 05:45: D-Dimer 2370 H* 05/01/18 06:20: POC Glucose 160 H 05/01/18 06:50: Specimen Source Right radial, O2 % 100, ABG pH 7.35, ABG pCO2 45.1 H, ABG pO2 215.6 H, ABG HCO3 24.3, ABG Total CO2 25.7, ABG O2 Saturation 99 , ABG Base Excess -1.3, Tommy Test Patient unable, Vent Rate 16, Tidal Volume 400, PEEP 5 05/01/18 11:10: APTT 30.4 Assessment and Plan (1) Acute respiratory failure Current visit: Yes Status: Acute Category: Medical Code(s): J96.00 - Acute respiratory failure, unspecified whether with hypoxia or hypercapnia (2) Mental status change Current visit: Yes Status: Acute Category: Medical Code(s): R41.82 - Altered mental status, unspecified (3) Community acquired pneumonia Current visit: Yes Status: Acute Qualifiers: Laterality: right Lung location: lower lobe of lung Qualified Code(s): J18.1 - Lobar pneumonia, unspecified organism Category: Medical Code(s): J18.9 - Pneumonia, unspecified organism (4) COPD with respiratory failure, acute Current visit: No Status: Acute Category: Medical Code(s): J96.00 - Acute respiratory failure, unspecified whether with hypoxia or hypercapnia; J44.9 - Chronic obstructive pulmonary disease, unspecified (5) Chronic renal failure Current visit: No Status: Acute Category: Medical Code(s): N18.9 - Chronic kidney disease, unspecified (6) On mechanically assisted ventilation Current visit: Yes Status: Acute Category: Medical Code(s): Z99.11 - Dependence on respirator [ventilator] status - Assessment and plan all Dx Assessment and Plan for all problems:: central venous access catheter -the risks and benefits have been discussed with the patient's family and they agreed to proceed
--- NOTE | 2018-05-01 15:03 | Operative Note ---
Date of procedure: 05/01/18 Pre-op Diagnosis:: Inadequate venous access Acute respiratory failure Acute kidney injury Post-op Diagnosis:: same Procedure performed:: Central venous access catheter (8 [place] triple lumen) - right internal jugular access Surgeon:: Ricky Lorenzo MD Anesthesia: local Estimated blood loss (mL): 5 Operative findings:: All ports flushed without difficulty Operative note:: After informed consent was obtained. The patient was maintained in a supine position. Her right neck and chest were prepped and draped in a sterile fashion. She was transferred to a somewhat Trendelenburg position. An area overlying the right internal jugular vein was infiltrated with 1% lidocaine. A "finder needle" was utilized to access the internal jugular vein. A large bore needle was then utilized to access the vein. The guidewire was placed in position. A small incision was made at the guidewire exit site. The dilator was placed over the guidewire without difficulty. The dilator was removed and the triple-lumen catheter was placed in position over the guidewire. The guidewire was removed. All ports were flushed without difficulty. The catheter was secured at 16 cm with the associated fixation device/silk suture. Dressings were applied and the patient was placed in a more upright position. Chest x-ray pending. Condition: other (Guarded, but stable) Disposition: no change Complications:: No immediate Chest x-ray pending
--- NOTE | 2018-05-01 15:07 | Pharmacy Consult Notes ---
[facility] Pharmacy VTE Monitoring - Patient Demographics Admission date: 05/01/18 Report Date: 05/01/18 Time: 15:07 Allergies/Adverse Reactions: Patient Allergies No Known Allergies Allergy (Verified 12/01/17 10:10) Height: 1.57 m Weight: 67 kg Patient Problems: Current Active Problems Chronic renal disease (Acute) Community acquired pneumonia (Acute) Acute respiratory failure (Acute) Mental status change (Acute) On mechanically assisted ventilation (Acute) - VTE Risk Labs: VTE Related Lab Results Hgb 11.0 g/dL (12.2-16.2) L 05/01/18 05:45 Hct 35.9 % (37.0-47.0) L 05/01/18 05:45 Plt Count 277 K/mm3 (142-424) 05/01/18 05:45 APTT 30.4 seconds (23.6-34.0) 05/01/18 11:10 BUN 45 mg/dL (7-18) H 05/01/18 05:45 Creatinine 2.83 mg/dL (0.55-1.02) H 05/01/18 05:45 Estimated Creat Clear 17 mL/min (0-300) 05/01/18 05:45 Was VTE Risk Assessment Performed: Yes VTE Score: 5 VTE Risk Level: Moderate Risk - Prophylaxis Pharmacologic Type: Heparin
[2018-05-02 03:18] LABS: Basophils % 0.2 % (0.1-2.0); Eosinophils % 0.4 % (0.1-12.0); Lymphocytes # 0.6 K/mm3 (0.7-4.5); Lymphocytes % 7.3 K/mm3 (10-50); Mean Corpuscular HGB Conc 32.1 g/dL (31.8-35.4); Mean Corpuscular Hemoglobin 30.4 pg (27.0-31.2); Mean Corpuscular Volume 94.6 fl (81-99); Mean Platelet Volume 9.3 fl (7.4-10.4); Monocytes # 0.1 K/mm3 (0.1-1.0); Monocytes % 1.5 % (1.7-9.3); Neutrophils # 6.9 K/mm3 (1.8-7.8); Neutrophils % 90.7 % (37.0-80.0); Platelet Count 231 K/mm3 (142-424); Red Blood Count 3.13 M/mm3 (4.20-5.40); Red Cell Distribution Width 13.6 % (11.5-17.5); White Blood Count 7.6 K/mm3 (4.8-10.8)
[2018-05-02 03:20] LABS: Anion Gap 14.7 mEq/L (5-15); Calcium 7.8 mg/dL (8.5-10.1); Hematocrit 29.6 % (37.0-47.0); Hemoglobin 9.5 g/dL (12.2-16.2); Potassium 3.7 mmoL/L (3.5-5.1)
[2018-05-02 04:27] LABS: Lymphocytes % 6 % (10-50); Neutrophils % 89 % (42-76); Rouleaux 2+; Total Cells Counted 100
[2018-05-02 06:25] LABS: ABG Base Excess -4.1 mmol/L (-2.4-2.3); ABG HCO3 20.1 mmhg (22.0-26.0); ABG Oxygen Saturation 98 % (90-100); ABG PCO2 30.8 mmhg (35.0-45.0); ABG PH 7.43 mmol/L (7.35-7.45); ABG PO2 115.2 mmhg (80-100); ABG TCO2 21.1 mmhg (23-27)
[2018-05-02 06:27] LABS: Allen's Test ACCEPTABLE; Oxygen 60 %; PEEP 5; Tidal Volume 400
--- NOTE | 2018-05-02 08:05 | Progress Note ---
Internal Medicine - PN: Subj *Date: 05/02/18 *Time: 08:02 Interval history: Patient rested well on the ventilator overnight, no significant events noted. Propofol drip was turned off around 6:00 and the patient is awake, nodding yes or no to questions and is alert. Able to respond to commands to take a deep breath and is able to pull about 350- 400 mL's spontaneously with minimal pressure support through the ET tube. Exam Vital signs and Labs for Last 24 Hours: Temp Pulse Resp BP Pulse Ox 98.8 F 82 16 141/53 97 05/02/18 06:00 05/02/18 07:00 05/02/18 07:00 05/02/18 07:00 05/02/18 07:00 Laboratory Results - last 24 hr 05/01/18 05:45: D-Dimer 2370 H* 05/01/18 11:10: APTT 30.4 05/01/18 13:01: POC Glucose 155 H 05/01/18 16:06: POC Glucose 223 H 05/01/18 18:15: APTT 125.6 H* D 05/01/18 20:19: POC Glucose 212 H 05/02/18 03:00: WBC 7.6 D, RBC 3.13 L, Hgb 9.5 L D, Hct 29.6 L, MCV 94.6, MCH 30.4, MCHC 32.1, RDW 13.6, Plt Count 231, MPV 9.3, Neut % (Auto) 90.7 H, Lymph % (Auto) 7.3 L, [place] % (Auto) 1.5 L, Eos % (Auto) 0.4, Baso % (Auto) 0.2, Neut # (Auto) 6.9, Lymph # (Auto) 0.6 L, [place] # (Auto) 0.1, Eos # (Auto) 0.0, Baso # (Auto) 0.0, Total Counted 100, Neutrophils % (Manual) 89 H, Band Neutrophils % 5.0, Lymphocytes % (Manual) 6 L, Platelet Estimate Normal, [place] 2+ 05/02/18 03:00: Sodium 141, Potassium 3.7 D, Chloride 105, Carbon Dioxide 25, Anion Gap 14.7, BUN 49 H, Creatinine 2.85 H, Estimated Creat Clear 17, Estimated GFR 16 L*, Est GFR ( Amer) 19 L*, Glucose 206 H D, Calcium 7.8 L 05/02/18 03:00: APTT 50.2 H* D 05/02/18 05:17: POC Glucose 232 H 05/02/18 06:23: Specimen Source Rt radial, O2 % 60, ABG pH 7.43, ABG pCO2 30.8 L , ABG pO2 115.2 H, ABG HCO3 20.1 L, ABG Total CO2 21.1 L, ABG O2 Saturation 98, ABG Base Excess -4.1 L, Tommy Test Acceptable, Vent Rate 16, Tidal Volume 400, PEEP 5 I & O for Last 24 hours: Intake & Output 04/29/18 04/30/18 05/01/18 05/02/18 11:59 11:59 11:59 11:59 Intake Total 670 / 670 1902 / 1902 Output Total 1025 / 1025 1251 / 1251 Balance -355 / -355 651 / 651 Weight 147 lb 11.355 oz 154 lb 6.4 oz Microbiology Reports for the Last 24 Hours: Microbiology 05/01/18 Unknown Sputum - Expectorated Sputum Gram Stain - Final 05/01/18 Unknown Sputum - Expectorated Sputum Sputum Culture - Preliminary Gram Negative Rods Gram Negative Rods#2 05/01/18 05:20 Urine,Catheterized Urine Culture - Preliminary NO GROWTH AFTER 24 HOURS 05/01/18 06:00 Sputum - Endotracheal Tube Aspirate Gram Stain - Final Narrative: Heart rate regular, lungs with ventilator sounds but clear, some rhonchi in both bases. Abdomen soft. Extremities well perfused. As noted she is alert, oriented, responsive. Assessment and Plan (1) Acute respiratory failure Current visit: Yes Status: Acute Category: Medical Code(s): J96.00 - Acute respiratory failure, unspecified whether with hypoxia or hypercapnia Overall improving. Plan for extubation today. Chest x-ray is better. (2) Mental status change Current visit: Yes Status: Acute Category: Medical Code(s): R41.82 - Altered mental status, unspecified Improving. Seems to be related to hypoxia. CT scan was unremarkable for acute changes (3) Community acquired pneumonia Current visit: Yes Status: Acute Qualifiers: Laterality: right Lung location: lower lobe of lung Qualified Code(s): J18.1 - Lobar pneumonia, unspecified organism Category: Medical Code(s): J18.9 - Pneumonia, unspecified organism Continue current broad-spectrum antibiotics. 2 different gram-negative species in her sputum. Await final culture results. Chest x-ray improvement noted on radiology read this morning. (4) COPD with respiratory failure, acute Current visit: No Status: Acute Category: Medical Code(s): J96.00 - Acute respiratory failure, unspecified whether with hypoxia or hypercapnia; J44.9 - Chronic obstructive pulmonary disease, unspecified (5) Chronic renal failure Current visit: No Status: Acute Category: Medical Code(s): N18.9 - Chronic kidney disease, unspecified (6) On mechanically assisted ventilation Current visit: Yes Status: Acute Category: Medical Code(s): Z99.11 - Dependence on respirator [ventilator] status I believe patient can be safely extubated. Continue nebulizers. Extubate to 40 % facemask, watch carefully through the day. - Assessment and plan all Dx Assessment and Plan for all problems:: Please note 1 hour critical care time including ventilator management.
--- NOTE | 2018-05-02 16:34 | Non-Invasive Vascular Report ---
"Venous Exam Indications: Orthopnea 786.02. IMPRESSIONS 1. There is no evidence of significant Reflux. 2. No evidence of deep or superficial vein thrombosis involving the right lower extremity and left lower extremity Complete lower extremity venous duplex evaluation. Doppler flow study including spectral analysis, color and gorman scale imaging. Location: Bedside. Patient status: Inpatient. Tables: Venous flow and imaging: + +-------+ + |Location |Overall|Flow properties | + +-------+ + |Right common femoral |Patent |Normal phasicity; spontaneous; | | | |normal augmentation; compressible| + +-------+ + |Right saphenofemoral junction|Patent |Compressible | + +-------+ + |Right profunda femoral |Patent |Compressible | + +-------+ + |Right femoral |Patent |Normal phasicity; spontaneous; | | | |normal augmentation; | | | |compressible; no reflux | + +-------+ + |Right greater saphenous |Patent |Normal phasicity; spontaneous; | | | |normal augmentation; compressible| + +-------+ + |Right popliteal |Patent |Normal phasicity; spontaneous; | | | |normal augmentation; compressible| + +-------+ + |Right posterior tibial |Patent |Compressible | + +-------+ + |Right peroneal |Patent |Compressible | + +-------+ + |Right gastrocnemius |Patent |Compressible | + +-------+ + |Right soleal |Patent |Compressible | + +-------+ + |Left common femoral |Patent |Normal phasicity; spontaneous; | | | |normal augmentation; compressible| + +-------+ + |Left saphenofemoral junction |Patent |Compressible | + +-------+ + |Left profunda femoral |Patent |Compressible | + +-------+ + |Left femoral |Patent |Normal phasicity; spontaneous; | | | |normal augmentation; compressible| + +-------+ + |Left greater saphenous |Patent |Normal phasicity; spontaneous; | | | |normal augmentation; compressible| + +-------+ + |Left popliteal |Patent |Normal phasicity; spontaneous; | | | |normal augmentation; compressible| + +-------+ + |Left posterior tibial |Patent |Compressible | + +-------+ + |Left peroneal |Patent |Compressible | + +-------+ + |Left gastrocnemius |Patent |Compressible | + +-------+ + |Left soleal |Patent |Compressible | + +-------+ + (Report amended ) Electronically signed by: Quan Barros [id number]"
[2018-05-03 06:31] LABS: Eosinophils % 0.5 % (0.1-12.0); Hemoglobin 8.7 g/dL (12.2-16.2); Lymphocytes # 0.4 K/mm3 (0.7-4.5); Lymphocytes % 4.3 K/mm3 (10-50); Mean Corpuscular HGB Conc 31.1 g/dL (31.8-35.4); Mean Corpuscular Volume 96.4 fl (81-99); Mean Platelet Volume 8.9 fl (7.4-10.4); Monocytes # 0.3 K/mm3 (0.1-1.0); Monocytes % 2.6 % (1.7-9.3); Neutrophils # 8.9 K/mm3 (1.8-7.8); Neutrophils % 92.6 % (37.0-80.0); Platelet Count 272 K/mm3 (142-424); Red Blood Count 2.91 M/mm3 (4.20-5.40); Red Cell Distribution Width 13.5 % (11.5-17.5); White Blood Count 9.6 K/mm3 (4.8-10.8)
[2018-05-03 06:34] LABS: Anion Gap 13.1 mEq/L (5-15); Calcium 7.6 mg/dL (8.5-10.1); Potassium 4.1 mmoL/L (3.5-5.1)
--- NOTE | 2018-05-03 07:02 | Progress Note ---
Internal Medicine - PN: Subj *Date: 05/03/18 *Time: 06:59 Interval history: Reports feeling better but still short of breath. Cough remains productive of clear sputum. VQ scan has been scheduled for today. Sputum cultures pending Exam Vital signs and Labs for Last 24 Hours: Temp Pulse Resp BP Pulse Ox 98.0 F 75 17 146/66 92 L 05/03/18 06:00 05/03/18 06:01 05/03/18 06:00 05/03/18 06:00 05/03/18 06:01 Laboratory Results - last 24 hr 05/02/18 09:30: APTT 48.5 H 05/02/18 10:41: POC Glucose 236 H 05/02/18 16:25: APTT 49.2 H 05/02/18 16:33: POC Glucose 242 H 05/02/18 19:59: POC Glucose 260 H 05/02/18 23:30: APTT 57.8 H* D 05/03/18 05:35: POC Glucose 244 H 05/03/18 05:55: WBC 9.6 D, RBC 2.91 L, Hgb 8.7 L, Hct 28.0 L, MCV 96.4, MCH 30.0, MCHC 31.1 L, RDW 13.5, Plt Count 272, MPV 8.9, Neut % (Auto) 92.6 H, Lymph % (Auto) 4.3 L, [place] % (Auto) 2.6, Eos % (Auto) 0.5, Baso % (Auto) 0.0 L, Neut # (Auto) 8.9 H, Lymph # (Auto) 0.4 L, [place] # (Auto) 0.3, Eos # (Auto) 0.0, Baso # (Auto) 0.0 05/03/18 05:55: Sodium 141, Potassium 4.1, Chloride 106, Carbon Dioxide 26, Anion Gap 13.1, BUN 60 H, Creatinine 2.80 H, Estimated Creat Clear 18, Estimated GFR 16 L*, Est GFR ( Amer) 20 L, Glucose 255 H, Calcium 7.6 L I & O for Last 24 hours: Intake & Output 04/30/18 05/01/18 05/02/18 05/03/18 11:59 11:59 11:59 11:59 Intake Total 670 / 670 2370 / 2370 2359 / 2359 Output Total 1025 / 1025 1826 / 1826 1490 / 1490 Balance -355 / -355 544 / 544 869 / 869 Weight 147 lb 11.355 oz 154 lb 6.4 oz 158 lb 1 oz Microbiology Reports for the Last 24 Hours: Microbiology 04/30/18 21:30 Blood Blood Culture - Preliminary NO GROWTH AFTER 48 HOURS 04/30/18 21:30 Blood Blood Culture - Preliminary NO GROWTH AFTER 48 HOURS 05/01/18 Unknown Sputum - Expectorated Sputum Gram Stain - Final 05/01/18 Unknown Sputum - Expectorated Sputum Sputum Culture - Preliminary Gram Negative Rods Gram Negative Rods#2 05/01/18 05:20 Urine,Catheterized Urine Culture - Preliminary NO GROWTH AFTER 24 HOURS Narrative: Resting comfortably with Ventimask on. Heart has a regular rate and rhythm with loud systolic murmur. Lungs have faint rhonchi left base greater than right. Assessment and Plan (1) Acute respiratory failure Current visit: Yes Status: Acute Category: Medical Code(s): J96.00 - Acute respiratory failure, unspecified whether with hypoxia or hypercapnia (2) Mental status change Current visit: Yes Status: Acute Category: Medical Code(s): R41.82 - Altered mental status, unspecified (3) Community acquired pneumonia Current visit: Yes Status: Acute Qualifiers: Laterality: right Lung location: lower lobe of lung Qualified Code(s): J18.1 - Lobar pneumonia, unspecified organism Category: Medical Code(s): J18.9 - Pneumonia, unspecified organism (4) COPD with respiratory failure, acute Current visit: No Status: Acute Category: Medical Code(s): J96.00 - Acute respiratory failure, unspecified whether with hypoxia or hypercapnia; J44.9 - Chronic obstructive pulmonary disease, unspecified (5) Chronic renal failure Current visit: No Status: Acute Category: Medical Code(s): N18.9 - Chronic kidney disease, unspecified (6) On mechanically assisted ventilation Current visit: Yes Status: Acute Category: Medical Code(s): Z99.11 - Dependence on respirator [ventilator] status (7) Anemia of chronic disease Current visit: Yes Status: Acute Category: Medical Code(s): D63.8 - Anemia in other chronic diseases classified elsewhere (8) Elevated d-dimer Current visit: Yes Status: Acute Category: Medical Code(s): R79.89 - Other specified abnormal findings of blood chemistry (9) Chronic kidney disease, stage IV (severe) Current visit: No Status: Chronic Category: Medical Code(s): N18.4 - Chronic kidney disease, stage 4 (severe) (10) Moderate aortic stenosis Current visit: No Status: Chronic Category: Medical Code(s): I35.0 - Nonrheumatic aortic (valve) stenosis (11) Type 2 diabetes mellitus with hyperglycemia Current visit: No Status: Chronic Category: Medical Code(s): E11.65 - Type 2 diabetes mellitus with hyperglycemia - Assessment and plan all Dx Assessment and Plan for all problems:: 1. Continue to wean oxygen 2. VQ scan today 3. Adjust antibiotics as needed pending sputum culture results 4. Repeat labs in a.m. to monitor declining H&H 5. Decrease Solu-Medrol to 40 mg every 8 hours
[2018-05-03 08:44] LABS: Lymphocytes % 4 % (10-50); Neutrophils % 96 % (42-76); Total Cells Counted 100
[2018-05-03 08:45] LABS: RBC Morphology Normal
--- NOTE | 2018-05-03 20:53 | Cardiology Report ---
PROCEDURE: 2-D M-mode and color Doppler study INDICATIONS FOR THE TEST: Chest pain COPD+ Heart Murmur+ Tobacco Smoking Palpitations Fatigue Syncope Edema Hypertension+Diabetes Mellitus+ Rheumatic Fever SOB+BOUHCER Obesity Hyperlipidemia+ Family History HD Additional History CHUCK,CAD, CHF, HOME O2, PVD, STENT PATIENT INFORMATION HEIGHT: 61 WEIGHT:149 GENDER: Female B/P:141/53 2-D/M-MODE INTERPRETATION: 2-D MEASUREMENTS OBSERVED VALUES IN CMS Right Ventricular Dimension (RVDd) 2.7 Interventricular Septum (Thickness)(IVsd) 1.9 Left Ventricular Internal Dimensions(LVIDd) 4.2 Left Ventricular Posterior Wall (Thickness)(LVPWd) 1.1 Aortic Root 2.7 Aortic Cusp Separation 1.2 Left Atrial Dimensions (LAD) 4.8 2D 1. Left atrium is moderately enlarged, left ventricle is normal size, there is mild concentric left ventricular hypertrophy, visually estimated ejection fraction 55% with no obvious regional wall motion abnormality. 2. The right atrium and right ventricle are normal size and contractility. 3. The aortic valve is thickened and calcified with severe restriction the leaflet mobility. 4. The mitral valve has mitral annular calcification, which extends and both anterior and posterior mitral leaflet, there is restriction in the mitral valve leaflets mobility. 5. The tricuspid valve leaflets are minimally thickened. 6. No significant pericardial effusion noted. DOPPLER INTERROGATION: 1. The maximum aortic out flow velocity recorded study is 4 m/s, resulting in a mean gradient across valve is 40 mmHg, this represents severe aortic stenosis, there is mild aortic insufficiency present. The aortic valve area is not accurately calculated this study. 2. The mitral inflow velocities increased to 2 m/s, the degree of mitral stenosis cannot be calculated from this study as patient. Pressure half time is not calculated. Repeat study with better Doppler technique is recommended. There is moderate mitral regurgitation present. 3. There is mild tricuspid regurgitation noted, tricuspid and jet velocity is insufficient for calculation of the right ventricular systolic pressure. CONCLUSION: 1. Moderately enlarged left atrium, normal left ventricular size, mild concentric left ventricular hypertrophy, visually estimated ejection fraction 55% with no obvious regional wall motion abnormality, diastolic parameters are inconclusive. 2. Thickened and calcified aortic valve is described above, mean gradient across valve of 40 mmHg represents severe aortic stenosis, there is mild aortic insufficiency present. 3. Abnormal mitral valve as described above, a repeat study with better Doppler technique is recommended to calculate degree of mitral stenosis, there is moderate mitral regurgitation present. 4. Mild tricuspid regurgitation, tricuspid regurgitant jet velocity is insufficient for calculation of the right ventricular systolic pressure.
[2018-05-04 06:49] LABS: Eosinophils % 0.3 % (0.1-12.0); Hematocrit 26.8 % (37.0-47.0); Hemoglobin 8.5 g/dL (12.2-16.2); Lymphocytes # 0.3 K/mm3 (0.7-4.5); Lymphocytes % 4.8 K/mm3 (10-50); Mean Corpuscular HGB Conc 31.6 g/dL (31.8-35.4); Mean Corpuscular Hemoglobin 30.4 pg (27.0-31.2); Mean Corpuscular Volume 96.1 fl (81-99); Mean Platelet Volume 9.4 fl (7.4-10.4); Monocytes # 0.2 K/mm3 (0.1-1.0); Monocytes % 3.2 % (1.7-9.3); Neutrophils # 6.2 K/mm3 (1.8-7.8); Neutrophils % 91.6 % (37.0-80.0); Platelet Count 273 K/mm3 (142-424); Red Blood Count 2.78 M/mm3 (4.20-5.40); Red Cell Distribution Width 13.4 % (11.5-17.5); White Blood Count 6.7 K/mm3 (4.8-10.8)
--- NOTE | 2018-05-04 07:14 | Progress Note ---
Internal Medicine - PN: Subj *Date: 05/04/18 *Time: 07:13 Interval history: Patient complains of wheezing this morning. Wheezing was somewhat improved with use of a aerosol. Shortness of breath overall has improved although she does feel slightly congested this morning. Exam Vital signs and Labs for Last 24 Hours: Temp Pulse Resp BP Pulse Ox 98.4 F 67 20 158/71 95 05/04/18 04:00 05/04/18 06:01 05/04/18 04:00 05/04/18 04:00 05/04/18 06:01 Laboratory Results - last 24 hr 05/03/18 05:55: Total Counted 100, Neutrophils % (Manual) 96 H, Lymphocytes % ( Manual) 4 L, Platelet Estimate Normal, RBC Morphology Normal 05/03/18 05:55: APTT 73.2 H* D 05/03/18 11:38: POC Glucose 305 H* 05/03/18 14:58: APTT 66.5 H* 05/03/18 16:06: POC Glucose 306 H* 05/03/18 21:15: POC Glucose 427 H* 05/04/18 06:01: POC Glucose 260 H 05/04/18 06:05: WBC 6.7 D, RBC 2.78 L, Hgb 8.5 L, Hct 26.8 L, MCV 96.1, MCH 30.4, MCHC 31.6 L, RDW 13.4, Plt Count 273, MPV 9.4, Neut % (Auto) 91.6 H, Lymph % (Auto) 4.8 L, [place] % (Auto) 3.2, Eos % (Auto) 0.3, Baso % (Auto) 0.0 L, Neut # (Auto) 6.2, Lymph # (Auto) 0.3 L, [place] # (Auto) 0.2, Eos # (Auto) 0.0, Baso # (Auto) 0.0 I & O for Last 24 hours: Intake & Output 05/01/18 05/02/18 05/03/18 05/04/18 11:59 11:59 11:59 11:59 Intake Total 670 / 670 2370 / 2370 2359 / 2359 881 / 881 Output Total 1025 / 1025 1826 / 1826 1840 / 1840 Balance -355 / -355 544 / 544 519 / 519 881 / 881 Weight 147 lb 11.355 oz 154 lb 6.4 oz 158 lb 1 oz 162 lb 4 oz Microbiology Reports for the Last 24 Hours: Microbiology 05/01/18 Unknown Sputum - Expectorated Sputum Gram Stain - Final 05/01/18 Unknown Sputum - Expectorated Sputum Sputum Culture - Preliminary Gram Negative Rods Gram Negative Rods#2 05/01/18 06:00 Sputum - Endotracheal Tube Aspirate Gram Stain - Final 05/01/18 06:00 Sputum - Endotracheal Tube Aspirate Sputum Culture - Preliminary 05/01/18 05:20 Urine,Catheterized Urine Culture - Final NO GROWTH AFTER 48 HOURS Narrative: She is awake and alert. Lungs have expiratory wheezes anteriorly but posteriorly are clear. Heart has a regular rate and rhythm. Extremities are without edema Assessment and Plan (1) Acute respiratory failure Current visit: Yes Status: Acute Category: Medical Code(s): J96.00 - Acute respiratory failure, unspecified whether with hypoxia or hypercapnia (2) Mental status change Current visit: Yes Status: Acute Category: Medical Code(s): R41.82 - Altered mental status, unspecified (3) Community acquired pneumonia Current visit: Yes Status: Acute Qualifiers: Laterality: right Lung location: lower lobe of lung Qualified Code(s): J18.1 - Lobar pneumonia, unspecified organism Category: Medical Code(s): J18.9 - Pneumonia, unspecified organism (4) COPD with respiratory failure, acute Current visit: No Status: Acute Category: Medical Code(s): J96.00 - Acute respiratory failure, unspecified whether with hypoxia or hypercapnia; J44.9 - Chronic obstructive pulmonary disease, unspecified (5) Chronic renal failure Current visit: No Status: Acute Category: Medical Code(s): N18.9 - Chronic kidney disease, unspecified (6) On mechanically assisted ventilation Current visit: Yes Status: Acute Category: Medical Code(s): Z99.11 - Dependence on respirator [ventilator] status (7) Anemia of chronic disease Current visit: Yes Status: Acute Category: Medical Code(s): D63.8 - Anemia in other chronic diseases classified elsewhere (8) Elevated d-dimer Current visit: Yes Status: Acute Category: Medical Code(s): R79.89 - Other specified abnormal findings of blood chemistry (9) Chronic kidney disease, stage IV (severe) Current visit: No Status: Chronic Category: Medical Code(s): N18.4 - Chronic kidney disease, stage 4 (severe) (10) Moderate aortic stenosis Current visit: No Status: Chronic Category: Medical Code(s): I35.0 - Nonrheumatic aortic (valve) stenosis (11) Type 2 diabetes mellitus with hyperglycemia Current visit: No Status: Chronic Category: Medical Code(s): E11.65 - Type 2 diabetes mellitus with hyperglycemia - Assessment and plan all Dx Assessment and Plan for all problems:: 1. PT eval today to assess any needs at discharge 2. Continue steroids and aerosols for mild COPD exacerbation 3. Await sputum cultures for gram-negative rods ID and sensitivity
--- NOTE | 2018-05-04 08:14 | Progress Note ---
Internal Medicine - PN: Subj *Date: 05/04/18 *Time: 08:14 Exam Vital signs and Labs for Last 24 Hours: Temp Pulse Resp BP Pulse Ox 98.2 F 74 20 147/58 90 L 05/04/18 07:55 05/04/18 07:55 05/04/18 07:55 05/04/18 07:55 05/04/18 07:55 Laboratory Results - last 24 hr 05/03/18 05:55: Total Counted 100, Neutrophils % (Manual) 96 H, Lymphocytes % ( Manual) 4 L, Platelet Estimate Normal, RBC Morphology Normal 05/03/18 11:38: POC Glucose 305 H* 05/03/18 14:58: APTT 66.5 H* 05/03/18 16:06: POC Glucose 306 H* 05/03/18 21:15: POC Glucose 427 H* 05/04/18 06:01: POC Glucose 260 H 05/04/18 06:05: WBC 6.7 D, RBC 2.78 L, Hgb 8.5 L, Hct 26.8 L, MCV 96.1, MCH 30.4, MCHC 31.6 L, RDW 13.4, Plt Count 273, MPV 9.4, Neut % (Auto) 91.6 H, Lymph % (Auto) 4.8 L, [place] % (Auto) 3.2, Eos % (Auto) 0.3, Baso % (Auto) 0.0 L, Neut # (Auto) 6.2, Lymph # (Auto) 0.3 L, [place] # (Auto) 0.2, Eos # (Auto) 0.0, Baso # (Auto) 0.0 I & O for Last 24 hours: Intake & Output 05/01/18 05/02/18 05/03/18 05/04/18 23:59 23:59 23:59 23:59 Intake Total 1941 2898 / 2898 840 / 840 960 / 960 Output Total 1930 690 / 690 Balance 828 / 828 150 / 150 960 / 960 Weight 67 kg 70.035 kg 71.696 kg 73.595 kg Microbiology Reports for the Last 24 Hours: Microbiology 05/01/18 Unknown Sputum - Expectorated Sputum Gram Stain - Final 05/01/18 Unknown Sputum - Expectorated Sputum Sputum Culture - Preliminary Gram Negative Rods Gram Negative Rods#2 05/01/18 06:00 Sputum - Endotracheal Tube Aspirate Gram Stain - Final 05/01/18 06:00 Sputum - Endotracheal Tube Aspirate Sputum Culture - Preliminary 05/01/18 05:20 Urine,Catheterized Urine Culture - Final NO GROWTH AFTER 48 HOURS Assessment and Plan (1) Acute respiratory failure Current visit: Yes Status: Acute Category: Medical Code(s): J96.00 - Acute respiratory failure, unspecified whether with hypoxia or hypercapnia (2) Mental status change Current visit: Yes Status: Acute Category: Medical Code(s): R41.82 - Altered mental status, unspecified (3) Community acquired pneumonia Current visit: Yes Status: Acute Qualifiers: Laterality: right Lung location: lower lobe of lung Qualified Code(s): J18.1 - Lobar pneumonia, unspecified organism Category: Medical Code(s): J18.9 - Pneumonia, unspecified organism (4) COPD with respiratory failure, acute Current visit: No Status: Acute Category: Medical Code(s): J96.00 - Acute respiratory failure, unspecified whether with hypoxia or hypercapnia; J44.9 - Chronic obstructive pulmonary disease, unspecified (5) Chronic renal failure Current visit: No Status: Acute Category: Medical Code(s): N18.9 - Chronic kidney disease, unspecified (6) On mechanically assisted ventilation Current visit: Yes Status: Acute Category: Medical Code(s): Z99.11 - Dependence on respirator [ventilator] status (7) Anemia of chronic disease Current visit: Yes Status: Acute Category: Medical Code(s): D63.8 - Anemia in other chronic diseases classified elsewhere (8) Elevated d-dimer Current visit: Yes Status: Acute Category: Medical Code(s): R79.89 - Other specified abnormal findings of blood chemistry (9) Chronic kidney disease, stage IV (severe) Current visit: No Status: Chronic Category: Medical Code(s): N18.4 - Chronic kidney disease, stage 4 (severe) (10) Moderate aortic stenosis Current visit: No Status: Chronic Category: Medical Code(s): I35.0 - Nonrheumatic aortic (valve) stenosis (11) Type 2 diabetes mellitus with hyperglycemia Current visit: No Status: Chronic Category: Medical Code(s): E11.65 - Type 2 diabetes mellitus with hyperglycemia The patient's infection will respond to the chosen ABx?: Yes Is the patient receiving the right drug, dose, and route?: Yes Could a more targeted ABx be ordered?: No
[2018-05-04 08:25] LABS: Lymphocytes % 8 % (10-50); Monocytes % 1 % (2-9); Neutrophils % 91 % (42-76); Total Cells Counted 100
[2018-05-05 06:39] LABS: Eosinophils % 0.3 % (0.1-12.0); Hematocrit 27.3 % (37.0-47.0); Hemoglobin 8.5 g/dL (12.2-16.2); Lymphocytes # 0.3 K/mm3 (0.7-4.5); Lymphocytes % 5.1 K/mm3 (10-50); Mean Corpuscular HGB Conc 31.1 g/dL (31.8-35.4); Mean Corpuscular Hemoglobin 29.8 pg (27.0-31.2); Mean Corpuscular Volume 95.9 fl (81-99); Mean Platelet Volume 9.6 fl (7.4-10.4); Monocytes # 0.3 K/mm3 (0.1-1.0); Monocytes % 4.3 % (1.7-9.3); Neutrophils # 5.2 K/mm3 (1.8-7.8); Neutrophils % 90.3 % (37.0-80.0); Platelet Count 277 K/mm3 (142-424); Red Blood Count 2.85 M/mm3 (4.20-5.40); Red Cell Distribution Width 13.3 % (11.5-17.5); White Blood Count 5.8 K/mm3 (4.8-10.8)
--- NOTE | 2018-05-05 07:46 | Discharge Summary ---
General - General Admission date:: 05/01/18 Discharge date: 05/05/18 HPI HPI: 78-year-old white female with multiple medical problems including chronic COPD/ emphysema, history of repetitive pneumonias and renal insufficiency-follows with Dr. Tenzin Ware-who was admitted through the emergency department late last night with cough and congestion with a diagnosis of COPD exacerbation and community acquired pneumonia and placed on Rocephin and azithromycin. Early this morning she was being bathed by her nursing staff and set up on the side of the bed and suddenly had a syncopal episode with significant respiratory distress, gasping and ineffective respirations. Blood gas showed significant acidosis, leukocytosis was noted. Patient's x-ray worsened with significant pulmonary infiltrates and she was intubated by on- call physician successfully. Patient's blood gas normalized, and patient is now intubated and sedated in the intensive care unit. History and other documentation below is from her family whom I spent a significant amount of time with this morning Hospital Course Hospital Course: Patient was admitted for COPD exacerbation and pneumonia. The morning following admission patient had onset of acute hypercapnic respiratory failure that required intubation. Patient was continued on broad-spectrum antibiotics. Patient was intubated for approximately 24 hours and then extubated. Pneumonia improved a little each day on serial chest x-rays performed monitoring ET tube placement. After extubation patient's supplemental oxygen was gradually weaned until she was on 3 L/min via nasal cannula at the day of discharge. She will continue this after discharge. Patient has very severe chronic kidney disease creatinine creatinine was followed daily with no significant changes in her creatinine. Fluids were used sparingly due to patient's history of congestive heart failure and valvular disease. On May 05 patient had improved enough for discharge. She will be discharged home and follow-up in my office on May 14 at 1:30 PM. Objective Vital signs: Temp Pulse Resp BP Pulse Ox 98.5 F 71 20 143/51 95 05/05/18 04:00 05/05/18 06:06 05/05/18 04:00 05/05/18 04:00 05/05/18 06:06 Results Completed studies during hospitalization [Text1]: Laboratory Tests 04/30/18 04/30/18 04/30/18 19:05 19:05 19:05 WBC 9.2 RBC 3.84 L Hgb 11.5 L Hct 36.7 L MCV 95.8 MCH 29.9 MCHC 31.3 L RDW 13.7 Plt Count 274 MPV 8.7 Neut % (Auto) 72.4 Lymph % (Auto) 12.1 Clay % (Auto) 5.5 Eos % (Auto) 9.0 Baso % (Auto) 1.1 Neut # (Auto) 6.7 Lymph # (Auto) 1.1 Clay # (Auto) 0.5 Eos # (Auto) 0.8 H Baso # (Auto) 0.1 Total Counted Neutrophils % (Manual) Band Neutrophils % Lymphocytes % (Manual) Monocytes % (Manual) Eosinophils % (Manual) Platelet Estimate RBC Morphology Poikilocytosis Acanthocytes (Spur) Rouleaux APTT D-Dimer Specimen Source O2 % ABG pH ABG pCO2 ABG pO2 ABG HCO3 ABG Total CO2 ABG O2 Saturation ABG Base Excess Tommy Test Vent Rate Tidal Volume PEEP Sodium 137 Potassium 4.5 Chloride 103 Carbon Dioxide 27 Anion Gap 11.5 BUN 46 H Creatinine 2.83 H Estimated Creat Clear 17 Estimated GFR 16 L* Est GFR ( Amer) 19 L* Glucose 192 H POC Glucose Lactic Acid Calcium 8.6 Magnesium Total Bilirubin Direct Bilirubin Indirect Bilirubin AST ALT Alkaline Phosphatase Troponin I < 0.02 B-Natriuretic Peptide 555 H Total Protein Albumin Lipase Urine Color Urine Appearance Urine pH Ur Specific [place] Urine Protein Urine Glucose (UA) Urine Ketones Urine Blood Urine Nitrate Urine Bilirubin Urine Urobilinogen Ur Leukocyte Esterase Urine RBC Urine WBC Ur Squamous Epith Cells Ur Renal Epithelial Cell Urine Bacteria 04/30/18 04/30/18 04/30/18 19:05 21:30 22:10 WBC RBC Hgb Hct MCV MCH MCHC RDW Plt Count MPV Neut % (Auto) Lymph % (Auto) Clay % (Auto) Eos % (Auto) Baso % (Auto) Neut # (Auto) Lymph # (Auto) Clay # (Auto) Eos # (Auto) Baso # (Auto) Total Counted Neutrophils % (Manual) Band Neutrophils % Lymphocytes % (Manual) Monocytes % (Manual) Eosinophils % (Manual) Platelet Estimate RBC Morphology Poikilocytosis Acanthocytes (Spur) Rouleaux APTT D-Dimer Specimen Source O2 % ABG pH ABG pCO2 ABG pO2 ABG HCO3 ABG Total CO2 ABG O2 Saturation ABG Base Excess Tommy Test Vent Rate Tidal Volume PEEP Sodium Potassium Chloride Carbon Dioxide Anion Gap BUN Creatinine Estimated Creat Clear Estimated GFR Est GFR ( Amer) Glucose POC Glucose Lactic Acid 1.2 Calcium Magnesium Total Bilirubin 0.7 Direct Bilirubin 0.1 Indirect Bilirubin 0.6 AST 22 ALT 29 Alkaline Phosphatase 113 Troponin I B-Natriuretic Peptide Total Protein 7.4 Albumin 3.5 Lipase 175 Urine Color Yellow Urine Appearance Clear Urine pH 5.5 Ur Specific [place] 1.020 Urine Protein 2+ Urine Glucose (UA) Negative Urine Ketones Negative Urine Blood Negative Urine Nitrate Negative Urine Bilirubin Negative Urine Urobilinogen 0.2 Ur Leukocyte Esterase Negative Urine RBC Urine WBC 3-5 Ur Squamous Epith Cells 3-5 Ur Renal Epithelial Cell 3-5 Urine Bacteria 04/30/18 05/01/18 05/01/18 22:30 05:15 05:20 WBC RBC Hgb Hct MCV MCH MCHC RDW Plt Count MPV Neut % (Auto) Lymph % (Auto) Clay % (Auto) Eos % (Auto) Baso % (Auto) Neut # (Auto) Lymph # (Auto) Clay # (Auto) Eos # (Auto) Baso # (Auto) Total Counted Neutrophils % (Manual) Band Neutrophils % Lymphocytes % (Manual) Monocytes % (Manual) Eosinophils % (Manual) Platelet Estimate RBC Morphology Poikilocytosis Acanthocytes (Spur) Rouleaux APTT D-Dimer Specimen Source Left radial O2 % 100 ambu ABG pH 7.07 L* ABG pCO2 98.7 H ABG pO2 158.7 H ABG HCO3 28.0 H ABG Total CO2 31.0 H ABG O2 Saturation 98 ABG Base Excess -2.1 Tommy Test Patient unable Vent Rate Tidal Volume PEEP Sodium Potassium Chloride Carbon Dioxide Anion Gap BUN Creatinine Estimated Creat Clear Estimated GFR Est GFR ( Amer) Glucose POC Glucose Lactic Acid Calcium Magnesium Total Bilirubin Direct Bilirubin Indirect Bilirubin AST ALT Alkaline Phosphatase Troponin I < 0.02 B-Natriuretic Peptide Total Protein Albumin Lipase Urine Color Yellow Urine Appearance Sl cloudy Urine pH 5.5 Ur Specific [place] 1.020 Urine Protein 2+ Urine Glucose (UA) Negative Urine Ketones Negative Urine Blood Trace-l Urine Nitrate Negative Urine Bilirubin Negative Urine Urobilinogen 0.2 Ur Leukocyte Esterase Negative Urine RBC Occasional Urine WBC Occasional Ur Squamous Epith Cells 3-5 Ur Renal Epithelial Cell Urine Bacteria 2+ A 05/01/18 05/01/18 05/01/18 05:45 05:45 05:45 WBC 16.4 H D RBC 3.68 L Hgb 11.0 L Hct 35.9 L MCV 97.6 MCH 30.0 MCHC 30.7 L RDW 13.7 Plt Count 277 MPV 9.5 Neut % (Auto) 82.9 H Lymph % (Auto) 5.6 L Clay % (Auto) 4.7 Eos % (Auto) 4.9 Baso % (Auto) 0.6 Neut # (Auto) 13.6 H Lymph # (Auto) 0.9 Clay # (Auto) 0.8 Eos # (Auto) 0.8 H Baso # (Auto) 0.1 Total Counted 100 Neutrophils % (Manual) 87 H Band Neutrophils % 2.0 Lymphocytes % (Manual) 6 L Monocytes % (Manual) 4 Eosinophils % (Manual) 1 Platelet Estimate Normal RBC Morphology Poikilocytosis Acanthocytes (Spur) 1+ Rouleaux APTT D-Dimer 2370 H* Specimen Source O2 % ABG pH ABG pCO2 ABG pO2 ABG HCO3 ABG Total CO2 ABG O2 Saturation ABG Base Excess Tommy Test Vent Rate Tidal Volume PEEP Sodium 140 Potassium 4.9 Chloride 105 Carbon Dioxide 26 Anion Gap 13.9 BUN 45 H Creatinine 2.83 H Estimated Creat Clear 17 Estimated GFR 16 L* Est GFR ( Amer) 19 L* Glucose 168 H POC Glucose Lactic Acid Calcium 8.0 L Magnesium 2.1 Total Bilirubin Direct Bilirubin Indirect Bilirubin AST ALT Alkaline Phosphatase Troponin I B-Natriuretic Peptide Total Protein Albumin Lipase Urine Color Urine Appearance Urine pH Ur Specific [place] Urine Protein Urine Glucose (UA) Urine Ketones Urine Blood Urine Nitrate Urine Bilirubin Urine Urobilinogen Ur Leukocyte Esterase Urine RBC Urine WBC Ur Squamous Epith Cells Ur Renal Epithelial Cell Urine Bacteria 05/01/18 05/01/18 05/01/18 06:20 06:50 11:10 WBC RBC Hgb Hct MCV MCH MCHC RDW Plt Count MPV Neut % (Auto) Lymph % (Auto) Clay % (Auto) Eos % (Auto) Baso % (Auto) Neut # (Auto) Lymph # (Auto) Clay # (Auto) Eos # (Auto) Baso # (Auto) Total Counted Neutrophils % (Manual) Band Neutrophils % Lymphocytes % (Manual) Monocytes % (Manual) Eosinophils % (Manual) Platelet Estimate RBC Morphology Poikilocytosis Acanthocytes (Spur) Rouleaux APTT 30.4 D-Dimer Specimen Source Right radial O2 % 100 ABG pH 7.35 ABG pCO2 45.1 H ABG pO2 215.6 H ABG HCO3 24.3 ABG Total CO2 25.7 ABG O2 Saturation 99 ABG Base Excess -1.3 Tommy Test Patient unable Vent Rate 16 Tidal Volume 400 PEEP 5 Sodium Potassium Chloride Carbon Dioxide Anion Gap BUN Creatinine Estimated Creat Clear Estimated GFR Est GFR ( Amer) Glucose POC Glucose 160 H Lactic Acid Calcium Magnesium Total Bilirubin Direct Bilirubin Indirect Bilirubin AST ALT Alkaline Phosphatase Troponin I B-Natriuretic Peptide Total Protein Albumin Lipase Urine Color Urine Appearance Urine pH Ur Specific [place] Urine Protein Urine Glucose (UA) Urine Ketones Urine Blood Urine Nitrate Urine Bilirubin Urine Urobilinogen Ur Leukocyte Esterase Urine RBC Urine WBC Ur Squamous Epith Cells Ur Renal Epithelial Cell Urine Bacteria 05/01/18 05/01/18 05/01/18 13:01 16:06 18:15 WBC RBC Hgb Hct MCV MCH MCHC RDW Plt Count MPV Neut % (Auto) Lymph % (Auto) Clay % (Auto) Eos % (Auto) Baso % (Auto) Neut # (Auto) Lymph # (Auto) Clay # (Auto) Eos # (Auto) Baso # (Auto) Total Counted Neutrophils % (Manual) Band Neutrophils % Lymphocytes % (Manual) Monocytes % (Manual) Eosinophils % (Manual) Platelet Estimate RBC Morphology Poikilocytosis Acanthocytes (Spur) Rouleaux APTT 125.6 H* D D-Dimer Specimen Source O2 % ABG pH ABG pCO2 ABG pO2 ABG HCO3 ABG Total CO2 ABG O2 Saturation ABG Base Excess Tommy Test Vent Rate Tidal Volume PEEP Sodium Potassium Chloride Carbon Dioxide Anion Gap BUN Creatinine Estimated Creat Clear Estimated GFR Est GFR ( Amer) Glucose POC Glucose 155 H 223 H Lactic Acid Calcium Magnesium Total Bilirubin Direct Bilirubin Indirect Bilirubin AST ALT Alkaline Phosphatase Troponin I B-Natriuretic Peptide Total Protein Albumin Lipase Urine Color Urine Appearance Urine pH Ur Specific [place] Urine Protein Urine Glucose (UA) Urine Ketones Urine Blood Urine Nitrate Urine Bilirubin Urine Urobilinogen Ur Leukocyte Esterase Urine RBC Urine WBC Ur Squamous Epith Cells Ur Renal Epithelial Cell Urine Bacteria 05/01/18 05/02/18 05/02/18 20:19 03:00 03:00 WBC 7.6 D RBC 3.13 L Hgb 9.5 L D Hct 29.6 L MCV 94.6 MCH 30.4 MCHC 32.1 RDW 13.6 Plt Count 231 MPV 9.3 Neut % (Auto) 90.7 H Lymph % (Auto) 7.3 L Clay % (Auto) 1.5 L Eos % (Auto) 0.4 Baso % (Auto) 0.2 Neut # (Auto) 6.9 Lymph # (Auto) 0.6 L Clay # (Auto) 0.1 Eos # (Auto) 0.0 Baso # (Auto) 0.0 Total Counted 100 Neutrophils % (Manual) 89 H Band Neutrophils % 5.0 Lymphocytes % (Manual) 6 L Monocytes % (Manual) Eosinophils % (Manual) Platelet Estimate Normal RBC Morphology Poikilocytosis Acanthocytes (Spur) Rouleaux 2+ APTT D-Dimer Specimen Source O2 % ABG pH ABG pCO2 ABG pO2 ABG HCO3 ABG Total CO2 ABG O2 Saturation ABG Base Excess Tommy Test Vent Rate Tidal Volume PEEP Sodium 141 Potassium 3.7 D Chloride 105 Carbon Dioxide 25 Anion Gap 14.7 BUN 49 H Creatinine 2.85 H Estimated Creat Clear 17 Estimated GFR 16 L* Est GFR ( Amer) 19 L* Glucose 206 H D POC Glucose 212 H Lactic Acid Calcium 7.8 L Magnesium Total Bilirubin Direct Bilirubin Indirect Bilirubin AST ALT Alkaline Phosphatase Troponin I B-Natriuretic Peptide Total Protein Albumin Lipase Urine Color Urine Appearance Urine pH Ur Specific [place] Urine Protein Urine Glucose (UA) Urine Ketones Urine Blood Urine Nitrate Urine Bilirubin Urine Urobilinogen Ur Leukocyte Esterase Urine RBC Urine WBC Ur Squamous Epith Cells Ur Renal Epithelial Cell Urine Bacteria 05/02/18 05/02/18 05/02/18 03:00 05:17 06:23 WBC RBC Hgb Hct MCV MCH MCHC RDW Plt Count MPV Neut % (Auto) Lymph % (Auto) Clay % (Auto) Eos % (Auto) Baso % (Auto) Neut # (Auto) Lymph # (Auto) Clay # (Auto) Eos # (Auto) Baso # (Auto) Total Counted Neutrophils % (Manual) Band Neutrophils % Lymphocytes % (Manual) Monocytes % (Manual) Eosinophils % (Manual) Platelet Estimate RBC Morphology Poikilocytosis Acanthocytes (Spur) Rouleaux APTT 50.2 H* D D-Dimer Specimen Source Rt radial O2 % 60 ABG pH 7.43 ABG pCO2 30.8 L ABG pO2 115.2 H ABG HCO3 20.1 L ABG Total CO2 21.1 L ABG O2 Saturation 98 ABG Base Excess -4.1 L Tommy Test Acceptable Vent Rate 16 Tidal Volume 400 PEEP 5 Sodium Potassium Chloride Carbon Dioxide Anion Gap BUN Creatinine Estimated Creat Clear Estimated GFR Est GFR ( Amer) Glucose POC Glucose 232 H Lactic Acid Calcium Magnesium Total Bilirubin Direct Bilirubin Indirect Bilirubin AST ALT Alkaline Phosphatase Troponin I B-Natriuretic Peptide Total Protein Albumin Lipase Urine Color Urine Appearance Urine pH Ur Specific [place] Urine Protein Urine Glucose (UA) Urine Ketones Urine Blood Urine Nitrate Urine Bilirubin Urine Urobilinogen Ur Leukocyte Esterase Urine RBC Urine WBC Ur Squamous Epith Cells Ur Renal Epithelial Cell Urine Bacteria 05/02/18 05/02/18 05/02/18 09:30 10:41 16:25 WBC RBC Hgb Hct MCV MCH MCHC RDW Plt Count MPV Neut % (Auto) Lymph % (Auto) Clay % (Auto) Eos % (Auto) Baso % (Auto) Neut # (Auto) Lymph # (Auto) Clay # (Auto) Eos # (Auto) Baso # (Auto) Total Counted Neutrophils % (Manual) Band Neutrophils % Lymphocytes % (Manual) Monocytes % (Manual) Eosinophils % (Manual) Platelet Estimate RBC Morphology Poikilocytosis Acanthocytes (Spur) Rouleaux APTT 48.5 H 49.2 H D-Dimer Specimen Source O2 % ABG pH ABG pCO2 ABG pO2 ABG HCO3 ABG Total CO2 ABG O2 Saturation ABG Base Excess Tommy Test Vent Rate Tidal Volume PEEP Sodium Potassium Chloride Carbon Dioxide Anion Gap BUN Creatinine Estimated Creat Clear Estimated GFR Est GFR ( Amer) Glucose POC Glucose 236 H Lactic Acid Calcium Magnesium Total Bilirubin Direct Bilirubin Indirect Bilirubin AST ALT Alkaline Phosphatase Troponin I B-Natriuretic Peptide Total Protein Albumin Lipase Urine Color Urine Appearance Urine pH Ur Specific [place] Urine Protein Urine Glucose (UA) Urine Ketones Urine Blood Urine Nitrate Urine Bilirubin Urine Urobilinogen Ur Leukocyte Esterase Urine RBC Urine WBC Ur Squamous Epith Cells Ur Renal Epithelial Cell Urine Bacteria 05/02/18 05/02/18 05/02/18 16:33 19:59 23:30 WBC RBC Hgb Hct MCV MCH MCHC RDW Plt Count MPV Neut % (Auto) Lymph % (Auto) Clay % (Auto) Eos % (Auto) Baso % (Auto) Neut # (Auto) Lymph # (Auto) Clay # (Auto) Eos # (Auto) Baso # (Auto) Total Counted Neutrophils % (Manual) Band Neutrophils % Lymphocytes % (Manual) Monocytes % (Manual) Eosinophils % (Manual) Platelet Estimate RBC Morphology Poikilocytosis Acanthocytes (Spur) Rouleaux APTT 57.8 H* D D-Dimer Specimen Source O2 % ABG pH ABG pCO2 ABG pO2 ABG HCO3 ABG Total CO2 ABG O2 Saturation ABG Base Excess Tommy Test Vent Rate Tidal Volume PEEP Sodium Potassium Chloride Carbon Dioxide Anion Gap BUN Creatinine Estimated Creat Clear Estimated GFR Est GFR ( Amer) Glucose POC Glucose 242 H 260 H Lactic Acid Calcium Magnesium Total Bilirubin Direct Bilirubin Indirect Bilirubin AST ALT Alkaline Phosphatase Troponin I B-Natriuretic Peptide Total Protein Albumin Lipase Urine Color Urine Appearance Urine pH Ur Specific [place] Urine Protein Urine Glucose (UA) Urine Ketones Urine Blood Urine Nitrate Urine Bilirubin Urine Urobilinogen Ur Leukocyte Esterase Urine RBC Urine WBC Ur Squamous Epith Cells Ur Renal Epithelial Cell Urine Bacteria 05/03/18 05/03/18 05/03/18 05:35 05:55 05:55 WBC 9.6 D RBC 2.91 L Hgb 8.7 L Hct 28.0 L MCV 96.4 MCH 30.0 MCHC 31.1 L RDW 13.5 Plt Count 272 MPV 8.9 Neut % (Auto) 92.6 H Lymph % (Auto) 4.3 L Clay % (Auto) 2.6 Eos % (Auto) 0.5 Baso % (Auto) 0.0 L Neut # (Auto) 8.9 H Lymph # (Auto) 0.4 L Clay # (Auto) 0.3 Eos # (Auto) 0.0 Baso # (Auto) 0.0 Total Counted 100 Neutrophils % (Manual) 96 H Band Neutrophils % Lymphocytes % (Manual) 4 L Monocytes % (Manual) Eosinophils % (Manual) Platelet Estimate Normal RBC Morphology Normal Poikilocytosis Acanthocytes (Spur) Rouleaux APTT D-Dimer Specimen Source O2 % ABG pH ABG pCO2 ABG pO2 ABG HCO3 ABG Total CO2 ABG O2 Saturation ABG Base Excess Tommy Test Vent Rate Tidal Volume PEEP Sodium 141 Potassium 4.1 Chloride 106 Carbon Dioxide 26 Anion Gap 13.1 BUN 60 H Creatinine 2.80 H Estimated Creat Clear 18 Estimated GFR 16 L* Est GFR ( Amer) 20 L Glucose 255 H POC Glucose 244 H Lactic Acid Calcium 7.6 L Magnesium Total Bilirubin Direct Bilirubin Indirect Bilirubin AST ALT Alkaline Phosphatase Troponin I B-Natriuretic Peptide Total Protein Albumin Lipase Urine Color Urine Appearance Urine pH Ur Specific [place] Urine Protein Urine Glucose (UA) Urine Ketones Urine Blood Urine Nitrate Urine Bilirubin Urine Urobilinogen Ur Leukocyte Esterase Urine RBC Urine WBC Ur Squamous Epith Cells Ur Renal Epithelial Cell Urine Bacteria 05/03/18 05/03/18 05/03/18 05:55 11:38 14:58 WBC RBC Hgb Hct MCV MCH MCHC RDW Plt Count MPV Neut % (Auto) Lymph % (Auto) Clay % (Auto) Eos % (Auto) Baso % (Auto) Neut # (Auto) Lymph # (Auto) Clay # (Auto) Eos # (Auto) Baso # (Auto) Total Counted Neutrophils % (Manual) Band Neutrophils % Lymphocytes % (Manual) Monocytes % (Manual) Eosinophils % (Manual) Platelet Estimate RBC Morphology Poikilocytosis Acanthocytes (Spur) Rouleaux APTT 73.2 H* D 66.5 H* D-Dimer Specimen Source O2 % ABG pH ABG pCO2 ABG pO2 ABG HCO3 ABG Total CO2 ABG O2 Saturation ABG Base Excess Tommy Test Vent Rate Tidal Volume PEEP Sodium Potassium Chloride Carbon Dioxide Anion Gap BUN Creatinine Estimated Creat Clear Estimated GFR Est GFR ( Amer) Glucose POC Glucose 305 H* Lactic Acid Calcium Magnesium Total Bilirubin Direct Bilirubin Indirect Bilirubin AST ALT Alkaline Phosphatase Troponin I B-Natriuretic Peptide Total Protein Albumin Lipase Urine Color Urine Appearance Urine pH Ur Specific [place] Urine Protein Urine Glucose (UA) Urine Ketones Urine Blood Urine Nitrate Urine Bilirubin Urine Urobilinogen Ur Leukocyte Esterase Urine RBC Urine WBC Ur Squamous Epith Cells Ur Renal Epithelial Cell Urine Bacteria 05/03/18 05/03/18 05/04/18 16:06 21:15 06:01 WBC RBC Hgb Hct MCV MCH MCHC RDW Plt Count MPV Neut % (Auto) Lymph % (Auto) Clay % (Auto) Eos % (Auto) Baso % (Auto) Neut # (Auto) Lymph # (Auto) Clay # (Auto) Eos # (Auto) Baso # (Auto) Total Counted Neutrophils % (Manual) Band Neutrophils % Lymphocytes % (Manual) Monocytes % (Manual) Eosinophils % (Manual) Platelet Estimate RBC Morphology Poikilocytosis Acanthocytes (Spur) Rouleaux APTT D-Dimer Specimen Source O2 % ABG pH ABG pCO2 ABG pO2 ABG HCO3 ABG Total CO2 ABG O2 Saturation ABG Base Excess Tommy Test Vent Rate Tidal Volume PEEP Sodium Potassium Chloride Carbon Dioxide Anion Gap BUN Creatinine Estimated Creat Clear Estimated GFR Est GFR ( Amer) Glucose POC Glucose 306 H* 427 H* 260 H Lactic Acid Calcium Magnesium Total Bilirubin Direct Bilirubin Indirect Bilirubin AST ALT Alkaline Phosphatase Troponin I B-Natriuretic Peptide Total Protein Albumin Lipase Urine Color Urine Appearance Urine pH Ur Specific [place] Urine Protein Urine Glucose (UA) Urine Ketones Urine Blood Urine Nitrate Urine Bilirubin Urine Urobilinogen Ur Leukocyte Esterase Urine RBC Urine WBC Ur Squamous Epith Cells Ur Renal Epithelial Cell Urine Bacteria 05/04/18 05/04/18 05/04/18 06:05 11:04 16:16 WBC 6.7 D RBC 2.78 L Hgb 8.5 L Hct 26.8 L MCV 96.1 MCH 30.4 MCHC 31.6 L RDW 13.4 Plt Count 273 MPV 9.4 Neut % (Auto) 91.6 H Lymph % (Auto) 4.8 L [place] % (Auto) 3.2 Eos % (Auto) 0.3 Baso % (Auto) 0.0 L Neut # (Auto) 6.2 Lymph # (Auto) 0.3 L [place] # (Auto) 0.2 Eos # (Auto) 0.0 Baso # (Auto) 0.0 Total Counted 100 Neutrophils % (Manual) 91 H Band Neutrophils % Lymphocytes % (Manual) 8 L Monocytes % (Manual) 1 L Eosinophils % (Manual) Platelet Estimate Normal RBC Morphology Poikilocytosis 1+ Acanthocytes (Spur) 1+ Rouleaux APTT D-Dimer Specimen Source O2 % ABG pH ABG pCO2 ABG pO2 ABG HCO3 ABG Total CO2 ABG O2 Saturation ABG Base Excess Tommy Test Vent Rate Tidal Volume PEEP Sodium Potassium Chloride Carbon Dioxide Anion Gap BUN Creatinine Estimated Creat Clear Estimated GFR Est GFR ( Amer) Glucose POC Glucose 352 H* 370 H* Lactic Acid Calcium Magnesium Total Bilirubin Direct Bilirubin Indirect Bilirubin AST ALT Alkaline Phosphatase Troponin I B-Natriuretic Peptide Total Protein Albumin Lipase Urine Color Urine Appearance Urine pH Ur Specific [place] Urine Protein Urine Glucose (UA) Urine Ketones Urine Blood Urine Nitrate Urine Bilirubin Urine Urobilinogen Ur Leukocyte Esterase Urine RBC Urine WBC Ur Squamous Epith Cells Ur Renal Epithelial Cell Urine Bacteria 05/04/18 05/05/18 05/05/18 20:16 05:55 06:28 WBC 5.8 RBC 2.85 L Hgb 8.5 L Hct 27.3 L MCV 95.9 MCH 29.8 MCHC 31.1 L RDW 13.3 Plt Count 277 MPV 9.6 Neut % (Auto) 90.3 H Lymph % (Auto) 5.1 L [place] % (Auto) 4.3 Eos % (Auto) 0.3 Baso % (Auto) 0.0 L Neut # (Auto) 5.2 Lymph # (Auto) 0.3 L [place] # (Auto) 0.3 Eos # (Auto) 0.0 Baso # (Auto) 0.0 Total Counted Neutrophils % (Manual) Band Neutrophils % Lymphocytes % (Manual) Monocytes % (Manual) Eosinophils % (Manual) Platelet Estimate RBC Morphology Poikilocytosis Acanthocytes (Spur) Rouleaux APTT D-Dimer Specimen Source O2 % ABG pH ABG pCO2 ABG pO2 ABG HCO3 ABG Total CO2 ABG O2 Saturation ABG Base Excess Tommy Test Vent Rate Tidal Volume PEEP Sodium Potassium Chloride Carbon Dioxide Anion Gap BUN Creatinine Estimated Creat Clear Estimated GFR Est GFR ( Amer) Glucose POC Glucose 348 H* 260 H Lactic Acid Calcium Magnesium Total Bilirubin Direct Bilirubin Indirect Bilirubin AST ALT Alkaline Phosphatase Troponin I B-Natriuretic Peptide Total Protein Albumin Lipase Urine Color Urine Appearance Urine pH Ur Specific [place] Urine Protein Urine Glucose (UA) Urine Ketones Urine Blood Urine Nitrate Urine Bilirubin Urine Urobilinogen Ur Leukocyte Esterase Urine RBC Urine WBC Ur Squamous Epith Cells Ur Renal Epithelial Cell Urine Bacteria Labs on day of discharge: Labs from last 24 hours 05/05/18 05/05/18 05/04/18 06:28 05:55 20:16 WBC 5.8 RBC 2.85 L Hgb 8.5 L Hct 27.3 L MCV 95.9 MCH 29.8 MCHC 31.1 L RDW 13.3 Plt Count 277 MPV 9.6 Neut % (Auto) 90.3 H Lymph % (Auto) 5.1 L [place] % (Auto) 4.3 Eos % (Auto) 0.3 Baso % (Auto) 0.0 L Neut # (Auto) 5.2 Lymph # (Auto) 0.3 L [place] # (Auto) 0.3 Eos # (Auto) 0.0 Baso # (Auto) 0.0 Total Counted Neutrophils % (Manual) Lymphocytes % (Manual) Monocytes % (Manual) Platelet Estimate Poikilocytosis Acanthocytes (Spur) POC Glucose 260 H 348 H* 05/04/18 05/04/18 05/04/18 16:16 11:04 06:05 WBC RBC Hgb Hct MCV MCH MCHC RDW Plt Count MPV Neut % (Auto) Lymph % (Auto) Clay % (Auto) Eos % (Auto) Baso % (Auto) Neut # (Auto) Lymph # (Auto) Clay # (Auto) Eos # (Auto) Baso # (Auto) Total Counted 100 Neutrophils % (Manual) 91 H Lymphocytes % (Manual) 8 L Monocytes % (Manual) 1 L Platelet Estimate Normal Poikilocytosis 1+ Acanthocytes (Spur) 1+ POC Glucose 370 H* 352 H* Preliminary micro results at discharge 04/30/18 21:30 Blood Culture - Preliminary Blood NO GROWTH AFTER 48 HOURS 04/30/18 21:30 Blood Culture - Preliminary Blood NO GROWTH AFTER 48 HOURS DS: Diagnosis - Discharge Diagnosis (1) Community acquired pneumonia Status: Acute (2) Acute respiratory failure Status: Acute (3) Mental status change Status: Acute (4) COPD with respiratory failure, acute Status: Acute (5) Chronic renal failure Status: Acute (6) On mechanically assisted ventilation Status: Acute (7) Anemia of chronic disease Status: Acute (8) Elevated d-dimer Status: Acute (9) Chronic kidney disease, stage IV (severe) Status: Chronic (10) Moderate aortic stenosis Status: Chronic (11) Type 2 diabetes mellitus with hyperglycemia Status: Chronic Discharge Plan - Patient Discharge Instructions ACTIVITY: Continue current activity DIET: continue same diet Patient Instructions: Central Line-Associated Bloodstream Infections, DI for Central Line Catheter - Follow up Plan Follow up with: Austin Zendejas MD [Primary Care Provider] - 05/14/18 1:30 pm Disposition: Home, Self-Fdc Medications: Home Medications Medication Instructions Recorded Confirmed Type RX: Albuterol Sulfate [Proair Hfa 2 puffs IH Q4-6H PRN 12/01/17 05/01/18 History 90mcg/puff Inh] RX: Amlodipine Besylate 10 mg PO DAILY 12/01/17 05/01/18 History [Amlodipine 10mg Tab] RX: Atorvastatin Calcium 40 mg PO HS 12/01/17 05/01/18 History [Atorvastatin 40mg Tab] RX: Carvedilol [Carvedilol 25mg 25 mg PO BID 12/01/17 05/01/18 History Tab] RX: Ergocalciferol (Vitamin D2) 50,000 unit PO WEEKLY 12/01/17 05/01/18 History [Vitamin D] RX: Furosemide [Lasix 20mg tablet] 20 mg PO DAILY 12/01/17 05/01/18 History RX: Gabapentin [Gabapentin 300mg 300 mg PO BID 12/01/17 05/01/18 History Cap] RX: Insulin Glargine,Hum.rec.anlog 45 unit PO DAILY 12/01/17 05/01/18 History [Lantus Insulin 100units/mL 10mL vial] RX: Isosorbide Mononitrate [Imdur 60 mg PO BID 12/01/17 05/01/18 History 60mg ER tablet] RX: Linagliptin [Tradjenta] 5 mg PO DAILY 12/01/17 05/01/18 History RX: Aspirin [Adult Low Dose 81 mg PO DAILY 01/11/18 05/01/18 History Aspirin EC] RX: Budesonide/Formoterol Fumarate 2 puff IH BID 01/11/18 04/30/18 History [Symbicort 160-4.5 Mcg Inhaler] RX: Ferrous Sulfate 325 mg PO DAILY 01/11/18 05/01/18 History RX: Hydrocodone/Acetaminophen 1 each PO BIDP PRN 01/11/18 05/01/18 History [Hydrocodone-Acetamin 5-325 mg] RX: Trazodone HCl 50 mg PO HSP PRN 01/11/18 05/01/18 History RX: Bethanechol Chloride 10 mg PO TID 03/23/18 05/01/18 History [Urecholine 10mg tablet] RX: Omeprazole [Omeprazole 40mg 40 mg PO DAILY 03/23/18 05/01/18 History Capsule] RX: predniSONE [Deltasone 10mg 10 mg PO DAILY 04/30/18 04/30/18 History tablet] Prescriptions/Medication Reconciliation: New levoFLOXacin [Levofloxacin 750MG Tablet] 750 mg PO QODHS #3 tab Continue RX: Isosorbide Mononitrate [Imdur 60mg ER tablet] 60 mg PO BID RX: Linagliptin [Tradjenta] 5 mg PO DAILY RX: Ergocalciferol (Vitamin D2) [Vitamin D] 50,000 unit PO WEEKLY RX: Amlodipine Besylate [Amlodipine 10mg Tab] 10 mg PO DAILY RX: Albuterol Sulfate [Proair Hfa 90mcg/puff Inh] 2 puffs IH Q4-6H PRN PRN Reason: Shortness Of Breath RX: Insulin Glargine,Hum.rec.anlog [Lantus Insulin 100units/mL 10mL vial] 45 unit PO DAILY RX: Carvedilol [Carvedilol 25mg Tab] 25 mg PO BID RX: Furosemide [Lasix 20mg tablet] 20 mg PO DAILY RX: Gabapentin [Gabapentin 300mg Cap] 300 mg PO BID RX: Trazodone HCl 50 mg PO HSP PRN PRN Reason: Sleep RX: Hydrocodone/Acetaminophen [Hydrocodone-Acetamin 5-325 mg] 1 each PO BIDP PRN PRN Reason: pain RX: Ferrous Sulfate 325 mg PO DAILY RX: Aspirin [Adult Low Dose Aspirin EC] 81 mg PO DAILY RX: Bethanechol Chloride [Urecholine 10mg tablet] 10 mg PO TID RX: Omeprazole [Omeprazole 40mg Capsule] 40 mg PO DAILY RX: Atorvastatin Calcium [Atorvastatin 40mg Tab] 40 mg PO HS RX: Budesonide/Formoterol Fumarate [Symbicort 160-4.5 Mcg Inhaler] 2 puff IH BID RX: predniSONE [Deltasone 10mg tablet] 10 mg PO DAILY
[2018-05-05 08:10] VITALS: BP 127/64
[2018-05-05 10:47] LABS: Lymphocytes % 9 % (10-50); Monocytes % 1 % (2-9); Neutrophils % 90 % (42-76); Total Cells Counted 100
[2018-05-05 10:48] LABS: RBC Morphology Normal
== END 2018-05-05 10:31 | disposition home or self-care (01) ==
LOC: 2ND 18:56 → ER 18:56 → 2ND 05-01 00:19
PROVIDERS: ADMIT Emergency Medicine; ATTEND Family Medicine